=== PATIENT | male | born 1940 | race Hispanic/Latino ===

== ENCOUNTER 2017-10-05 17:15 | Inpatient (IN) | payer MEDICARE ==
[2017-10-05 17:16] VITALS: BMI 20.3
[2017-10-05] MEDS ORDERED: Sodium Chloride 0.9% 1,000 ML IV SCH (17:30)
[2017-10-05] MEDS ORDERED: Albuterol-Ipratrop 3 mg / 0.5 (3 ml) UD IH STA (17:37)
[2017-10-05] MEDS ORDERED: Albuterol 0.083% Inhal Sol (2.5 mg/3 mL) UD INH STA (17:37)
[2017-10-05 18:01] LABS: BASO # 0.02 K/mm3 (0.0-2.0); BASO % 0.2 % (0.0-3.0); EOS # 0.1 (0.0-0.7); EOS % 1.1 % (1.5-5.0); GRAN # 7.41 (1.4-6.5); GRAN % 70.2 % (50.0-68.0); HEMOGLOBIN 12.5 g/dL (14.0-18.0); LYMPH # 2.4 (1.2-3.4); LYMPH % 22.3 % (22.0-35.0); MEAN CELL VOLUME 86.8 fl (80.0-105.0); MEAN CORPUSCULAR HEMOGLOBIN 28.9 pg (25.0-35.0); MEAN CORPUSCULAR HGB CONC 33.2 g/dl (31.0-37.0); MEAN PLATELET VOLUME 10.5 fl (7.0-11.0); MONO # 0.7 (0.1-0.6); MONO % 6.2 % (1.0-6.0); RBC 4.33 10^6/uL (3.5-6.1); RED CELL DISTRIBUTION WIDTH 15.2 % (11.5-14.5); WHITE BLOOD COUNT 10.6 10^3/ul (4.5-11.0)
[2017-10-05 18:13] LABS: INR 1.02 (0.93-1.08); PROTHROMBIN TIME 11.6 SECONDS (9.4-12.5)
[2017-10-05 18:17] LABS: ALB/GLOB RATIO 1.5 (1.1-1.8); ALBUMIN 4.4 g/dL (3.0-4.8); ALT/SGPT 32 U/L (7-56); AST/SGOT 39 U/L (17-59); BLOOD UREA NITROGEN 23 mg/dL (7-21); CALCIUM 9.6 mg/dL (8.4-10.5); GFR AFRICAN-AMERICAN > 60; GFR NON-AFRICAN AMERICAN 54
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
[2017-10-05 18:29] LABS: B-TYPE NATRIURETIC PEPTIDE 637 pg/mL (0-450); TROPONIN I < 0.01 ng/mL
[2017-10-05 18:41] LABS: CK-MB 8.3 ng/mL (0.0-3.6)
[2017-10-05] MEDS ORDERED: Oxycodone/Acetaminophen 5/325 mg Tab PO STA (19:01)
[2017-10-05 21:27] LABS: TROPONIN I < 0.01 ng/mL
[2017-10-05 21:30] LABS: CK-MB 7.5 ng/mL (0.0-3.6)
[2017-10-06] MEDS: Levalbuterol 1.25 MG/3 ML Inhal Soln UD IH SCH ×4 (05:22→21:14)
[2017-10-06] MEDS: oxyCODONE 30 mg Immediate Release Tab PO PRN ×3 (05:28→22:02)
[2017-10-06] MEDS ORDERED: oxyCODONE 30 mg Immediate Release Tab PO SCH (10:00)
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
[2017-10-06] MEDS: Metoprolol Succinate 25 mg XL Tab PO SCH (10:17)
[2017-10-06 13:39] LABS: HDL CHOLESTEROL 53 mg/dL (29-60)
--- NOTE | 2017-10-06 13:44 | CP.PCM.PN ---
Subjective - Subjective Subjective: Lying in bed awake, denies shortness of breath Reason for consultation: Brief history of present illness: A 76 year old male who came in to the ER due to chest pain radiating to scapular area associated with shortness of breath. History of CAD, cardiac stents x 3, and COPD. Seen and examined by me and Dr. Shine Objective - Vital Signs/Intake and Output Vital Signs (last 24 hours): Temp Pulse Resp BP Pulse Ox 98 F 65 18 96/54 L 96 10/06/17 12:00 10/06/17 12:00 10/06/17 12:00 10/06/17 12:00 10/06/17 06:00 Intake and Output: 10/06/17 10/06/17 06:59 18:59 Intake Total 120 Balance 120 - Medications Medications: Current Medications Aspirin (Ecotrin) 81 mg PO DAILY [facility] Last Admin: 10/06/17 10:20 Dose: 81 mg Atorvastatin Calcium (Lipitor) 40 mg PO DAILY [facility] Last Admin: 10/06/17 10:20 Dose: 40 mg Clopidogrel Bisulfate (Plavix) 75 mg PO DAILY [facility] Last Admin: 10/06/17 10:20 Dose: 75 mg Levalbuterol HCl (Xopenex) 1.25 mg IH [id number] [facility] Last Admin: 10/06/17 13:13 Dose: 1.25 mg Lisinopril (Zestril) 20 mg PO DAILY [facility] Last Admin: 10/06/17 10:17 Dose: Not Given Methylprednisolone (Solu-Medrol) 40 mg IV Q12 [facility] Metoprolol Succinate (Toprol Xl) 25 mg PO DAILY [facility] Last Admin: 10/06/17 10:17 Dose: Not Given Oxycodone HCl (Oxycodone Immediate Release Tab) 30 mg PO QID PRN PRN Reason: Pain, moderate (4-7) Last Admin: 10/06/17 05:28 Dose: 30 mg - Labs Labs: PT 11.6 SECONDS (9.4-12.5) 10/05/17 17:42 INR 1.02 (0.93-1.08) 10/05/17 17:42
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
[2017-10-06 13:49] LABS: LDL CHOLESTEROL 47 mg/dL (0-129)
[2017-10-06 13:51] LABS: TROPONIN I < 0.01 ng/mL
[2017-10-06] MEDS: MethylPREDNISolone 40 mg Vial IV SCH ×2 (14:15→22:02)
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
[2017-10-07 00:26] VITALS: O2SAT 93
[2017-10-07] MEDS: Levalbuterol 1.25 MG/3 ML Inhal Soln UD IH SCH ×2 (03:00→07:20)
[2017-10-07] MEDS: oxyCODONE 30 mg Immediate Release Tab PO PRN ×2 (03:01→09:03)
[2017-10-07 06:03] VITALS: TEMP 97.9
[2017-10-07 07:41] LABS: FREE T4 1.31 ng/dL (0.78-2.19)
[2017-10-07] MEDS: MethylPREDNISolone 40 mg Vial IV SCH (09:00)
[2017-10-07] MEDS: Metoprolol Succinate 25 mg XL Tab PO SCH (09:00)
[2017-10-07 09:06] VITALS: BP 138/68; PULSE 74
--- NOTE | 2017-10-07 09:46 | CARD ---
APPROVED REPORT EKG Measurement Heart [id number] <Conclusion> Normal sinus rhythm Septal infarct, age undetermined Abnormal ECG
[2017-10-07 12:13] VITALS: RESP 18
--- NOTE | 2017-10-07 21:11 | CON ---
DATE: 10/07/2017 CARDIOLOGY CONSULTATION HISTORY: The patient is a 76-year-old male who presents with left shoulder pain. No chest pain noted. The patient's past medical history includes a history of multivessel PTCA and stent. He has been lost to followup over the past year, but he has been taking this medication. In addition, the patient suffers from hypertension and hypercholesterolemia. He has documented peripheral vascular disease, followed by an interventional radiologist. In addition, his ambulation has been limited by left femoral hernia. He suffers from hypertension and hypercholesterolemia. He is a former smoker. The 14 point review of systems is reviewed in detail. No angina. No exertional shortness of breath. Positive claudication. Negative edema in the lower extremities. PHYSICAL EXAMINATION: VITAL SIGNS: Blood pressure is 138/68, heart rates in the 70s. HEART: Normal sinus rhythm. NECK: Negative JVD. LUNGS: Without rales. HEART: Reveal S1, S2. EXTREMITIES: Decreased pulses in the left lower extremity. DATA: EKG shows no acute changes. Laboratories, troponins are negative x3. BUN and creatinine unremarkable. Hemoglobin is 12.5. IMPRESSION: 1. Left shoulder pain. 2. No evidence for acute coronary syndrome. 3. Documented multivessel coronary artery disease and history of percutaneous transluminal coronary angioplasty in the past. 4. Peripheral vascular disease. 5. Chronic obstructive pulmonary disease. 6. Hypertension. 7. Hypercholesterolemia. Given these findings, there is no evidence for acute coronary syndrome. The patient can be discharged today. We will discontinue Telemetry. Had arranged for an outpatient stress test. If his stress test is okay, the patient can proceed to hernia repair. Chapin Wall MD
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
== END 2017-10-07 12:07 | disposition home or self-care (01) | DRG 192 ==
LOC: ED 17:15 → ERH 22:27 → 2RSO 10-06 00:21
PROVIDERS: ADMIT Internal Medicine; ATTEND Internal Medicine
PROC: 3E0F7GC Introduction of Other Therapeutic Substance into Respiratory Tract, Via Natural or Artificial Opening (ICD-10-PCS; principal; 2017-10-06)
DX: J44.1 Chronic obstructive pulmonary disease with (acute) exacerbation (principal); I25.10 Atherosclerotic heart disease of native coronary artery without angina pectoris; I73.9 Peripheral vascular disease, unspecified; E78.5 Hyperlipidemia, unspecified; I10 Essential (primary) hypertension; E78.00 Pure hypercholesterolemia, unspecified; K21.9 Gastro-esophageal reflux disease without esophagitis; M25.512 Pain in left shoulder; K41.90 Unilateral femoral hernia, without obstruction or gangrene, not specified as recurrent; Z95.5 Presence of coronary angioplasty implant and graft; Z87.891 Personal history of nicotine dependence; Z79.02 Long term (current) use of antithrombotics/antiplatelets; Z79.82 Long term (current) use of aspirin

== ENCOUNTER 2017-11-07 07:44 | Day surgery (SDC) | payer MEDICARE ==
[2017-11-05 08:07] VITALS: BMI 19.3
[2017-11-07] MEDS ORDERED: Lidocaine 2% Inj (20ml) ONE (08:18)
[2017-11-07] MEDS ORDERED: Iodixanol 320 MG/ML 200 ML BOTTLE IV ONE (08:19)
[2017-11-07] MEDS ORDERED: Iohexol 350mgl/ml 50 ML ONE (08:19)
[2017-11-07] MEDS ORDERED: Iodixanol 320 MG/ML 100 ML BOTTLE IV ONE (08:19)
[2017-11-07] MEDS ORDERED: Phenylephrine 10 mg/ml Inj ONE (08:19)
[2017-11-07 08:21] LABS: BASO # 0.01 K/mm3 (0.0-2.0); BASO % 0.1 % (0.0-3.0); EOS # 0.2 (0.0-0.7); EOS % 2.2 % (1.5-5.0); GRAN # 7.03 (1.4-6.5); GRAN % 64.8 % (50.0-68.0); HEMOGLOBIN 12.4 g/dL (14.0-18.0); LYMPH # 2.7 (1.2-3.4); LYMPH % 24.5 % (22.0-35.0); MEAN CELL VOLUME 88.4 fl (80.0-105.0); MEAN CORPUSCULAR HEMOGLOBIN 29.4 pg (25.0-35.0); MEAN CORPUSCULAR HGB CONC 33.2 g/dl (31.0-37.0); MEAN PLATELET VOLUME 10.4 fl (7.0-11.0); MONO # 0.9 (0.1-0.6); MONO % 8.4 % (1.0-6.0); RBC 4.22 10^6/uL (3.5-6.1); RED CELL DISTRIBUTION WIDTH 15.1 % (11.5-14.5); WHITE BLOOD COUNT 10.9 10^3/ul (4.5-11.0)
[2017-11-07] MEDS ORDERED: Midazolam 2 MG/2 ML VIAL ONE ×2 (08:28→08:40)
[2017-11-07 08:30] LABS: BLOOD UREA NITROGEN 18 mg/dL (7-21); CALCIUM 9.3 mg/dL (8.4-10.5); GFR AFRICAN-AMERICAN > 60; GFR NON-AFRICAN AMERICAN > 60
[2017-11-07 08:34] LABS: INR 1.03 (0.93-1.08); PARTIAL THROMBOPLASTIN TIME 29.1 Seconds (25.1-36.5); PROTHROMBIN TIME 11.9 SECONDS (9.4-12.5)
[2017-11-07] MEDS ORDERED: Sodium Chloride 0.9% 1,000 ML IV SCH (09:15)
[2017-11-07 09:20] VITALS: TEMP 96.9
--- NOTE | 2017-11-07 11:00 | CARDCATH ---
PROCEDURE DATE: 11/07/2017 HISTORY: The patient is a 77-year-old male with a history of multivessel CAD and PTCA in the past. He also suffers from hypertension and hypercholesterolemia. He is finally decided to stop smoking. His stress test was abnormal. Cardiac catheterization was recommended. PROCEDURE: Left heart catheterization with coronary arteriography and left ventriculogram. The right femoral artery was cannulated with a 6-Green[place]ic sheath. There were no complications. I performed moderate sedation, which included the presence of an independent trained observer that assisted in monitoring the patient's level of consciousness and physiologic status. After administration of Versed and fentanyl, my intra service time was 15 minutes. Findings on catheterization revealed a left dominant circulation. The RCA was a small vessel with intimal irregularities without significant stenoses. The left main artery was unremarkable. The LAD and diagonal vessels revealed intimal irregularities without critical lesions. The diagonal stent was patent. The circumflex artery and obtuse marginal branches revealed intimal irregularities without critical lesions. The circumflex stent was patent. LV function is normal. The Mynx system was used to close the femoral artery site. The patient tolerated the procedure well. In summary, the procedure revealed patent stents in the circumflex artery and the diagonal vessel. LV function is normal. Given these findings, the patient's treatment will be continued medical therapy. I will encourage him to stay off cigarettes. Continue his present medications. Chapin Wall MD
[2017-11-07 11:54] VITALS: RESP 16
[2017-11-07 13:58] VITALS: BP 158/75; PULSE 56; O2SAT 97
--- NOTE | 2017-11-07 22:21 | CARD ---
APPROVED REPORT EKG Measurement Heart [id number] <Conclusion> Normal sinus rhythm Normal ECG
== END 2017-11-07 15:10 | disposition home or self-care (01) ==
LOC: CATH 07:44
PROVIDERS: ATTEND Internal Medicine Cardiovascular Disease
DX: I25.10 Atherosclerotic heart disease of native coronary artery without angina pectoris (principal); E78.00 Pure hypercholesterolemia, unspecified; I10 Essential (primary) hypertension; J44.9 Chronic obstructive pulmonary disease, unspecified; I73.9 Peripheral vascular disease, unspecified; Z95.5 Presence of coronary angioplasty implant and graft
CPT/HCPCS: 36415; 80048; 85025; 85610; 85730; 86850; 86900; 93005; 93458; 99152; C1760; C1769; C1887; C2629; J1644; J2250; J3010; J7030; J7040; Q9966; Q9967

== ENCOUNTER 2018-04-30 19:27 | Emergency (ER) | payer MEDICARE ==
[2018-04-30 19:36] VITALS: RESP 18; TEMP 98; BMI 20.6
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
[2018-04-30 20:33] LABS: BASO # 0.02 K/mm3 (0.0-2.0); BASO % 0.2 % (0.0-3.0); EOS # 0.1 (0.0-0.7); EOS % 0.8 % (1.5-5.0); GRAN # 8.5 (1.4-6.5); GRAN % 72.9 % (50.0-68.0); HEMOGLOBIN 13.5 g/dL (14.0-18.0); LYMPH % 17.2 % (22.0-35.0); MEAN CELL VOLUME 88.6 fl (80.0-105.0); MEAN CORPUSCULAR HEMOGLOBIN 29.5 pg (25.0-35.0); MEAN CORPUSCULAR HGB CONC 33.3 g/dl (31.0-37.0); MEAN PLATELET VOLUME 10.9 fl (7.0-11.0); MONO % 8.9 % (1.0-6.0); RBC 4.58 10^6/uL (3.5-6.1); RED CELL DISTRIBUTION WIDTH 14.1 % (11.5-14.5); WHITE BLOOD COUNT 11.7 10^3/uL (4.5-11.0)
[2018-04-30 20:40] LABS: ALB/GLOB RATIO 1.4 (1.1-1.8); ALBUMIN 4.4 g/dL (3.0-4.8); ALT/SGPT 25 U/L (7-56); AST/SGOT 32 U/L (17-59); BLOOD UREA NITROGEN 18 mg/dL (7-21); CALCIUM 9.7 mg/dL (8.4-10.5); GFR NON-AFRICAN AMERICAN 59
[2018-04-30 20:42] LABS: INR 1.03; PROTHROMBIN TIME 11.8 SECONDS (9.4-12.5)
[2018-04-30 20:50] LABS: TROPONIN I 0.02 ng/mL
[2018-04-30] MEDS: Sodium Chloride 0.9% 1,000 ML IV SCH (21:30)
[2018-04-30 21:58] LABS: URINE BILIRUBIN NEGATIVE (NEGATIVE); URINE BLOOD TRACE-INTACT (NEGATIVE); URINE GLUCOSE (UA) NEGATIVE (NEGATIVE); URINE LEUKOCYTE ESTERASE NEGATIVE Leu/uL (NEGATIVE); URINE PROTEIN NEGATIVE mg/dL (<30 mg/dL); URINE UROBILINOGEN 0.2 E.U./dL (<1 E.U./dL)
[2018-04-30 21:59] LABS: URINE APPEARANCE CLEAR (CLEAR); URINE COLOR LIGHT YELLOW (YELLOW)
[2018-04-30 22:10] LABS: URINE RBC 0 - 2 /hpf (0-2); URINE WBC 0 - 2 /hpf (0-6)
[2018-04-30 22:11] LABS: URINE BACTERIA FEW /hpf
[2018-04-30] MEDS: oxyCODONE 10 mg Immediate Release Tab PO STA (23:28)
[2018-04-30 23:31] VITALS: O2SAT 100
[2018-05-01 00:03] VITALS: BP 131/70; PULSE 65
--- NOTE | 2018-05-01 08:47 | CT ---
Date of service: 04/30/2018 PROCEDURE: CT HEAD WITHOUT CONTRAST. HISTORY: fall COMPARISON: None available. TECHNIQUE: Axial computed tomography images were obtained through the head/brain without intravenous contrast. Radiation dose: Total exam DLP = 828.82 mGy-cm. This CT exam was performed using one or more of the following dose reduction techniques: Automated exposure control, adjustment of the mA and/or kV according to patient size, and/or use of iterative reconstruction technique. FINDINGS: HEMORRHAGE: No intracranial hemorrhage. BRAIN: No mass effect or edema. No atrophy or chronic microvascular ischemic changes. VENTRICLES: Unremarkable. No hydrocephalus. CALVARIUM: Unremarkable. PARANASAL SINUSES: Unremarkable as visualized. No significant inflammatory changes. MASTOID AIR CELLS: Unremarkable as visualized. No inflammatory changes. OTHER FINDINGS: None. IMPRESSION: Normal CT of the Head.
--- NOTE | 2018-05-01 09:09 | CT ---
Date of service: 04/30/2018 PROCEDURE: CT Chest, Abdomen and Pelvis with intravenous contrast HISTORY: fall left chest pain luq pain COMPARISON: None available. TECHNIQUE: IV dose administered: Radiation dose: Total exam DLP = 426.21 mGy-cm. This CT exam was performed using one or more of the following dose reduction techniques: Automated exposure control, adjustment of the mA and/or kV according to patient size, and/or use of iterative reconstruction technique. FINDINGS: CT CHEST WITH CONTRAST: LUNGS: Bilateral interstitial fibrotic changes. Emphysematous changes. MEDIASTINUM: No adenopathy. LYMPH NODES: Unremarkable. PLEURA: Unremarkable. No pneumothorax. No pleural fluid. BONES: Unremarkable. OTHER FINDINGS: None. CT ABDOMEN AND PELVIS: LIVER: Unremarkable. No gross lesion or ductal dilatation. GALLBLADDER AND BILE DUCTS: Unremarkable. PANCREAS: Unremarkable. No gross lesion or ductal dilatation. SPLEEN: Unremarkable. ADRENALS: Unremarkable. No mass. KIDNEYS AND URETERS: Unremarkable. No hydronephrosis. No solid mass. VASCULATURE: 3.1 centimeter infrarenal abdominal aortic aneurysm. Aortic calcifications. BOWEL: Unremarkable. No obstruction. No gross mural thickening. APPENDIX: Normal appendix. PERITONEUM: Unremarkable. No free fluid. No free air. LYMPH NODES: Unremarkable. No enlarged lymph nodes. BLADDER: Unremarkable. REPRODUCTIVE: Unremarkable. BONES: No acute fracture. OTHER FINDINGS: None. IMPRESSION: 3.1 centimeter infrarenal abdominal aortic aneurysm. Interstitial fibrosis and emphysematous change.
--- NOTE | 2018-05-01 09:12 | CARD ---
APPROVED REPORT Date of service: 04/30/2018 EKG Measurement Heart [id number] 150P77 [id number] <Conclusion> Normal sinus rhythm Normal ECG No change
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
== END 2018-05-01 00:02 | disposition home or self-care (01) ==
LOC: ED 19:27
DX: S09.90XA Unspecified injury of head, initial encounter (principal); S29.9XXA Unspecified injury of thorax, initial encounter; W01.0XXA Fall on same level from slipping, tripping and stumbling without subsequent striking against object, initial encounter
CPT/HCPCS: 70450; 71045; 71260; 74177; 80053; 81001; 82550; 83615; 83735; 84484; 85025; 85610; 85730; 93005; 99284; J7030; Q9967

== ENCOUNTER 2018-06-04 06:37 | Inpatient (IN) | payer MEDICARE, OTHER ==
[2018-06-04] MEDS ORDERED: Albuterol-Ipratrop 3 mg / 0.5 (3 ml) UD ONE (06:52)
[2018-06-04] MEDS ORDERED: Levalbuterol 1.25 MG/3 ML Inhal Soln UD ONE (06:57)
[2018-06-04] MEDS ORDERED: Metoprolol 1 mg/ml Inj IVP STA (07:04)
[2018-06-04] MEDS ORDERED: Metoprolol 1 mg/ml Inj ONE (07:04)
[2018-06-04 07:18] LABS: VENOUS BLOOD GAS BASE EXCESS 1.8 mmol/L (0.0-2.0); VENOUS BLOOD GAS PO2 21 mm/Hg (30-55); VENOUS BLOOD PH 7.34 (7.32-7.43)
[2018-06-04 07:21] LABS: BASO # 0.01 K/mm3 (0.0-2.0); GRAN # 18.81 (1.4-6.5); GRAN % 89.9 % (50.0-68.0); HEMOGLOBIN 15.6 g/dL (14.0-18.0); LYMPH # 0.6 (1.2-3.4); MEAN CELL VOLUME 87.8 fl (80.0-105.0); MEAN CORPUSCULAR HEMOGLOBIN 30.3 pg (25.0-35.0); MEAN CORPUSCULAR HGB CONC 34.5 g/dl (31.0-37.0); MEAN PLATELET VOLUME 11.2 fl (7.0-11.0); MONO # 1.5 (0.1-0.6); MONO % 7.1 % (1.0-6.0); PLATELET COUNT 204 10^3/uL (120.0-450.0); RBC 5.15 10^6/uL (3.5-6.1); RED CELL DISTRIBUTION WIDTH 14.2 % (11.5-14.5); WHITE BLOOD COUNT 20.9 10^3/uL (4.5-11.0)
[2018-06-04 07:32] LABS: ALB/GLOB RATIO 1.2 (1.1-1.8); ALBUMIN 4.3 g/dL (3.0-4.8); ALT/SGPT 22 U/L (7-56); AST/SGOT 29 U/L (17-59); BLOOD UREA NITROGEN 37 mg/dL (7-21); CALCIUM 10.1 mg/dL (8.4-10.5); GFR NON-AFRICAN AMERICAN > 60
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
[2018-06-04 07:42] LABS: INR 1.27; PARTIAL THROMBOPLASTIN TIME 33.1 Seconds (26.9-38.3); PROTHROMBIN TIME 14.4 SECONDS (9.4-12.5)
[2018-06-04 07:43] LABS: B-TYPE NATRIURETIC PEPTIDE 1890 pg/mL (0-450); TROPONIN I 0.04 ng/mL
[2018-06-04] MEDS ORDERED: Sodium Chloride 0.9% 1,000 ML IV STA ×2 (07:43)
[2018-06-04] MEDS ORDERED: Vancomycin 1gm in NS 250ml 1 GM/250 ML BAG IVPB STA (07:44)
[2018-06-04] MEDS ORDERED: Piperacill/Tazo 4.5gm in NS 4.5 GM/100 ML BAG IVPB STA (07:44)
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
[2018-06-04] MEDS: diltiaZEM IVPB 100mg in NS 100 ML IV PRN ×2 (08:33→16:21)
[2018-06-04 08:38] LABS: BAND 3 % (0-2); LYMPHOCYTE 5 % (22.0-35.0); MONOCYTE 6 % (1.0-6.0); NEUTROPHIL 86 % (50.0-70.0)
--- NOTE | 2018-06-04 09:03 | PCM.SEPTIC ---
Sepsis Progress Note - Reassessment Type Reassessment Type: Non-invasive reassessment - Non Invasive Reassessment Were the most recent vital sign reviewed: Yes Vital Sign (Latest): Temp Pulse Resp BP Pulse Ox 152 H 25 H 118/88 99 06/04/18 08:43 06/04/18 07:30 06/04/18 08:43 06/04/18 08:24 Cardiovascular: Yes: Irregularly Irregular Respiratory: Yes: Crackles Capillary Refill: Delayed Pulses: Decreased Radial, Decreased Dorsalis Pedis, Decreased Posterior Tibialis Skin: Warm
[2018-06-04 09:11] LABS: ARTERIAL BLOOD GAS HCO3 19.4 mmol/L (21-28); ARTERIAL BLOOD GAS O2 SAT 93.7 % (95-98); ARTERIAL BLOOD GAS PCO2 32 mm/Hg (35-45); ARTERIAL BLOOD GAS PH 7.39 (7.35-7.45); ARTERIAL BLOOD GAS TCO2 20.4 mmol.L (22-28)
[2018-06-04 09:48] LABS: URINE BILIRUBIN NEGATIVE (NEGATIVE); URINE BLOOD SMALL (NEGATIVE); URINE GLUCOSE (UA) NEGATIVE (NEGATIVE); URINE LEUKOCYTE ESTERASE NEGATIVE Leu/uL (NEGATIVE); URINE PROTEIN TRACE mg/dL (<30 mg/dL); URINE UROBILINOGEN 0.2 E.U./dL (<1 E.U./dL)
[2018-06-04] MEDS: MethylPREDNISolone 40 mg Vial IVP SCH ×2 (10:01→18:14)
[2018-06-04] MEDS: Albuterol-Ipratrop 3 mg / 0.5 (3 ml) UD IH SCH ×2 (10:03→13:13)
[2018-06-04 10:10] LABS: VENOUS BLOOD GAS BASE EXCESS -2.4 mmol/L (0.0-2.0); VENOUS BLOOD GAS PO2 82 mm/Hg (30-55); VENOUS BLOOD PH 7.41 (7.32-7.43)
[2018-06-04 10:23] LABS: ALB/GLOB RATIO 1.1 (1.1-1.8); ALBUMIN 3.2 g/dL (3.0-4.8); ALT/SGPT 30 U/L (7-56); AST/SGOT 19 U/L (17-59); BLOOD UREA NITROGEN 31 mg/dL (7-21); CALCIUM 8.3 mg/dL (8.4-10.5); GFR NON-AFRICAN AMERICAN > 60
[2018-06-04 10:23] LABS: URINE APPEARANCE CLEAR (CLEAR); URINE COLOR YELLOW (YELLOW)
[2018-06-04 10:30] LABS: URINE AMORPHOUS SEDIMENT FEW /hpf; URINE BACTERIA MOD /hpf; URINE COARSE GRANULAR CAST TRACE /hpf; URINE WBC 0 - 2 /hpf (0-6)
[2018-06-04] MEDS ORDERED: Potassium Chloride 20 mEq ER Tab PO ONE (11:38)
[2018-06-04] MEDS: Vancomycin 1gm in NS 250ml 1 GM/250 ML BAG IVPB SCH ×2 (11:46→21:52)
--- NOTE | 2018-06-04 11:57 | CARD ---
APPROVED REPORT Date of service: 06/04/2018 EKG Measurement Heart [id number] <Conclusion> Atrial fibrillation with rapid ventricular response Possible Anterior infarct, age undetermined Abnormal ECG
--- NOTE | 2018-06-04 11:58 | CARD ---
APPROVED REPORT Date of service: 06/04/2018 EKG Measurement Heart [id number] <Conclusion> Atrial fibrillation with rapid ventricular response Cannot rule out Anterior infarct, age undetermined ST & T wave abnormality, consider inferior ischemia or digitalis effect Abnormal ECG
--- NOTE | 2018-06-04 12:09 | CT ---
Date of service: 06/04/2018 PROCEDURE: CT Abdomen and Pelvis without intravenous contrast HISTORY: colitis COMPARISON: CT abdomen and pelvis 04/30/2018 TECHNIQUE: Without contrast. Contrast dose: No Radiation dose: Total exam DLP = 175 mGy-cm. This CT exam was performed using one or more of the following dose reduction techniques: Automated exposure control, adjustment of the mA and/or kV according to patient size, and/or use of iterative reconstruction technique. FINDINGS: LOWER THORAX: There is left basal dependent consolidation seen. Infiltrate and/or atelectasis is compatible with this. Some concomitant the left pleural effusion is possible. However the density readings are greater than that typically seen with a simple effusion. Probable hiatal hernia. Minimal pericardial effusion noted. This is an interval change in appearance noted. LIVER: Unremarkable. No gross lesion or ductal dilatation. GALLBLADDER AND BILE DUCTS: Unremarkable. PANCREAS: Unremarkable. No gross lesion or ductal dilatation. SPLEEN: Unremarkable. ADRENALS: Unremarkable. No mass. KIDNEYS AND URETERS: Unremarkable. No hydronephrosis. No gross mass appreciated. VASCULATURE: There is descending infrarenal abdominal aortic aneurysm fairly similar in appearance and size this exam it measures 3.4 cm prior measurements were different-overall size however is believed similar.. There is presence of aortic atherosclerotic calcification and mural plaque on cross sectional studies. Atherosclerotic vascular calcifications extend into each common iliac artery as well as the more distal branches. As well. BOWEL: Moderate left and right colonic stool retention.. No obstruction. No gross mural thickening. No gross pericolonic inflammatory changes appreciated on this non IV contrast enhanced study. APPENDIX: A portion of the appendix is probably visualized near the cecal base-no CT evidence of acute appendicitis suggested. PERITONEUM: Unremarkable. No free fluid. No free air. LYMPH NODES: Unremarkable. No enlarged lymph nodes. BLADDER: Moderate distended bladder. No gross bladder wall thickening or intraluminal masses appreciated. The bladder wall thickness is probably top-normal. REPRODUCTIVE: Prostate minimally prominent at the 4.7 x 3.2 cm. Some posterior prostatic calcifications also suggested. Seminal vesicles unremarkable. BONES: No acute fracture. Spondylosis noted. 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 Bilateral sacroiliac anterior hypertrophic changes noted. OTHER FINDINGS: None. IMPRESSION: No bowel obstruction. The exam is limited in terms of evaluating for colitis without IV contrast. No gross prominent diverticulosis with the concomitant gross diverticulitis appreciated. Moderate stool retention. Redundant rectosigmoid colon noted Left lower lobe posterior/dependent consolidation as referenced above. This is an interval change with the prior exam. Concomitant more hyperdense left pleural effusion not excluded. Interval minimal left pericardial effusion. Follow-up recommended. Atherosclerotic vascular calcifications present. 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 This is believed similar in caliber although previously referenced different measurements were provided.
[2018-06-04] MEDS ORDERED: Digoxin 500 mcg/2ml (0.5 mg/2ml) Inj IVP ONE ×2 (12:13→12:22)
[2018-06-04 12:32] VITALS: PULSE 133
[2018-06-04 12:41] LABS: VENOUS BLOOD GAS BASE EXCESS -1.3 mmol/L (0.0-2.0); VENOUS BLOOD GAS PO2 30 mm/Hg (30-55); VENOUS BLOOD PH 7.34 (7.32-7.43)
[2018-06-04 12:42] LABS: GRAN # 17.6 (1.4-6.5); GRAN % 97.1 % (50.0-68.0); HEMOGLOBIN 13.8 g/dL (14.0-18.0); LYMPH # 0.3 (1.2-3.4); LYMPH % 1.5 % (22.0-35.0); MEAN CELL VOLUME 87.9 fl (80.0-105.0); MEAN CORPUSCULAR HEMOGLOBIN 29.2 pg (25.0-35.0); MEAN CORPUSCULAR HGB CONC 33.3 g/dl (31.0-37.0); MEAN PLATELET VOLUME 11.5 fl (7.0-11.0); MONO # 0.3 (0.1-0.6); MONO % 1.4 % (1.0-6.0); RBC 4.72 10^6/uL (3.5-6.1); RED CELL DISTRIBUTION WIDTH 14.3 % (11.5-14.5); WHITE BLOOD COUNT 18.1 10^3/uL (4.5-11.0)
[2018-06-04] MEDS ORDERED: Enoxaparin 60 mg Syringe SC SCH (12:45)
--- NOTE | 2018-06-04 13:00 | PCM.SEPTIC ---
Sepsis Progress Note - Reassessment Type Date of Evaluation: 06/04/18 Time of Evaluation: 12:59 Reassessment Type: Non-invasive reassessment - Non Invasive Reassessment Were the most recent vital sign reviewed: Yes Vital Sign (Latest): Temp Pulse Resp BP Pulse Ox 138 H 25 H 107/57 L 99 06/04/18 11:36 06/04/18 07:30 06/04/18 11:36 06/04/18 11:36 Cardiovascular: Yes: Tachycardia Respiratory: No: Decreased Breath Sounds, Accessory Muscle Use, Rales, Rhonchi, Stridor, Wheezing Capillary Refill: Normal (Less than 2 sec) Pulses: Decreased Radial, Decreased Dorsalis Pedis, Decreased Posterior Tibialis Skin: Normal Color, Warm, Dry
[2018-06-04 13:03] LABS: TROPONIN I 0.03 ng/mL
[2018-06-04 13:08] LABS: ALB/GLOB RATIO 1.1 (1.1-1.8); ALBUMIN 3.7 g/dL (3.0-4.8); ALT/SGPT 28 U/L (7-56); AST/SGOT 25 U/L (17-59); BLOOD UREA NITROGEN 32 mg/dL (7-21); CALCIUM 8.9 mg/dL (8.4-10.5); GFR NON-AFRICAN AMERICAN > 60
[2018-06-04] MEDS: oxyCODONE 20 mg ER Tab (oxyCONTIN) PO PRN (13:10)
[2018-06-04] MEDS: Cefepime IV 2 gm in NS 2 GM/100 ML BAG IVPB SCH ×2 (13:30→21:15)
[2018-06-04] MEDS ORDERED: Cefepime 1gm in NS 100ml 1 GM/100 ML BAG IVPB SCH (14:00)
[2018-06-04 16:20] LABS: VENOUS BLOOD GAS BASE EXCESS -1.1 mmol/L (0.0-2.0); VENOUS BLOOD GAS PO2 61 mm/Hg (30-55); VENOUS BLOOD PH 7.43 (7.32-7.43)
--- NOTE | 2018-06-04 17:15 | CARD ---
APPROVED REPORT Date of service: 06/04/2018 EXAM: Two-dimensional and M-mode echocardiogram with Doppler and color Doppler. INDICATION Atrial Fibrillation 2D DIMENSIONS Left Atrium (2D)3.1 (1.6-4.0cm)IVSd1.1 (0.7-1.1cm) LVDd3.5 (3.9-5.9cm)PWd1.1 (0.7-1.1cm) LVDs2.9 (2.5-4.0cm)FS (%) 16.2 % LVEF (%)55.0 (>50%) M-Mode DIMENSIONS Aortic Root3.10 (2.2-3.7cm)Aortic Cusp Exc.1.40 (1.5-2.0cm) Aortic Valve AoV Peak Gjampmqn134.0cm/Nayan Peak GR.10mmHg Mitral Valve MV E Zpkfsnrh53.4cm/sMV A Vpnclltk78.6cm/sE/A ratio0.7 TDI E/Lateral E'0.0E/Medial E'0.0 Tricuspid Valve TR Peak Rrdxxwqw120ed/sRAP [id number] Peak Gr.22mmHg [id number] LEFT VENTRICLE The left ventricle is normal size. There is normal left ventricular wall thickness. The left ventricular function is normal. The left ventricular ejection fraction is within the normal range. There is normal LV segmental wall motion. Transmitral Doppler flow pattern is Grade I-abnormal relaxation pattern. RIGHT VENTRICLE The right ventricle is normal size. There is normal right ventricular wall thickness. The right ventricular systolic function is normal. ATRIA The left atrium size is normal. The right atrium size is normal. AORTIC VALVE The aortic valve is mildly to moderately sclerotic. There is mild aortic regurgitation. There is no aortic valvular stenosis. MITRAL VALVE The mitral valve is moderately thickened. Mitral regurgitation is trace. There is no mitral valve stenosis. TRICUSPID VALVE There is mild tricuspid regurgitation. GREAT VESSELS The aortic root is normal in size. The IVC is normal in size and collapses >50% with inspiration. <Conclusion> There is normal left ventricular wall thickness. The left ventricular function is normal. The left ventricular ejection fraction is within the normal range. There is normal LV segmental wall motion. Transmitral Doppler flow pattern is Grade I-abnormal relaxation pattern. There is mild aortic regurgitation. There is mild tricuspid regurgitation.
--- NOTE | 2018-06-04 19:05 | CON ---
DATE: 06/04/2018 HISTORY OF PRESENT ILLNESS: This is a 77-year-old male with history of atrial fibrillation, COPD, who presented to ER complaining of increased shortness of breath, cough with greenish sputum production over the last 3 days which was getting progressively worse, and wheezing. No alleviating or aggravating factors. No chest pain. The patient had some subjective fever but no chills, sweats. The patient does report some diarrhea and some mild abdominal pain. The patient was treated with oral antibiotics prior to admission to ER, however, unsuccessfully. PAST MEDICAL HISTORY: Atrial fibrillation, COPD, coronary artery disease (three stents). The patient does have history of CHF. ALLERGIES: NKDA. SOCIAL HISTORY: The patient is ex-smoker. No alcohol or illicit drug abuse. MEDICATIONS: Aspirin, Plavix, oxycodone ER and metoprolol. REVIEW OF SYSTEMS: Review of 12-organ system other than mentioned in history of present illness is negative. FAMILY HISTORY: Noncontributory. PHYSICAL EXAMINATION: VITAL SIGNS: Heart rate fluctuates (the patient has atrial fibrillation between 140 and 160. Cardizem drip was increased from 5 mg per hour to 10 mg per hour). Blood pressure 120/60, respiratory rate 18. The patient is on BiPAP 12/6 with FiO2 50%. The patient pulling 700 mL of tidal volume. ABG on that setting is 7.39, pCO2 of 32, pO2 of 60, lactic acid 0.9. ENT: Head and neck atraumatic. LUNGS: Few wheezes and rhonchi bilaterally. HEART: Irregular rate and rhythm. S1, S2 distant. ABDOMEN: Soft, mildly tender, but no voluntary or involuntary guarding. No rebound tenderness. MUSCULOSKELETAL: No C/C/E. NEUROLOGIC: The patient moves all extremities spontaneously. SKIN: Moist. PSYCHIATRIC: The patient is alert, awake and oriented. Does not appear to be in respiratory or otherwise distress. LABORATORY DATA: Sodium 138, potassium 4, chloride 96, carbon dioxide 28, BUN 37, creatinine 1.1, glucose 138, calcium 10.1, AST 29, ALT 22, total bilirubin 1.3. ProBNP 1890. Troponin 0.04. WBC 20.9, hemoglobin 15.6, platelet count 204, eosinophils 0. Influenza type A and B negative. Chest x-ray showed interval patchy coalescent left basilar infiltrate, background chronic COPD and background chronic interstitial lung disease. ASSESSMENT AND PLAN: This is a 77-year-old gentleman who presented with severe community-acquired pneumonia complicated by hypoxemic respiratory failure requiring noninvasive positive pressure ventilation, sepsis, atrial fibrillation in the setting of likely some systolic congestive heart failure (echocardiogram performed 6 years ago showed mild left ventricular systolic dysfunction, elevated proBNP). I will start the patient on cefepime, vanco and doxycycline pending ID service consultation and adjusting antibiotic regimen. We will proceed with blood culture, urine culture, procalcitonin level. Urine for Legionella and streptococcal antigen. At present time, the patient is fluid resuscitated, his lactic acidosis resolved, and I will proceed with conservative fluid management and will give the patient one dose of Lasix with further reassessment. We will put Todd catheter in and monitor urine output. Because the patient had some diarrhea and abdominal pain, I will get CAT scan of the abdomen and pelvis. The patient will be admitted to ICU for further management and monitoring. Hopefully, with treating sepsis and maintaining euvolemia, atrial fibrillation with RVR will be controlled. Meanwhile, the patient is on Cardizem drip. Echocardiogram was ordered, Cardiology consult is pending. We will follow up on this. We will continue with deep venous thrombosis, gastrointestinal prophylaxis. We will maintain euvolemia, euglycemia, normothermia and oxygen saturation more than 90%. We will try to avoid hyperchloremia and maintain mean arterial pressure more than 65. ccm time 40 min iMah Cowan MD [facility]
[2018-06-04] MEDS ORDERED: Influenza Vaccine 60 mcg/0.5 mL SYR (4YR UP) IM ONE (19:07)
[2018-06-04] MEDS ORDERED: Pneumococcal 23-Valent Vaccine IM ONE (19:07)
[2018-06-04 19:08] VITALS: BMI 18.6
[2018-06-04] MEDS ORDERED: oxyCODONE 20 mg ER Tab (oxyCONTIN) PO ONE (20:15)
--- NOTE | 2018-06-04 20:47 | CON ---
DATE: 06/04/2018 CARDIOLOGY CONSULTATION HISTORY: The patient is a 77-year-old male who presents with upper respiratory congestion. He complained of cough for several days. He denies angina. PAST MEDICAL HISTORY: Notable for marked COPD secondary to years of smoking. In addition, the patient has documented coronary artery disease with his last catheterization occurring in 10/2007 which revealed patent stents in the LAD, diagonal regions as well as in the circumflex artery. The RCA was chronically occluded. The LV function is normal. The patient denies shortness of breath. Denies angina. REVIEW OF SYSTEMS: Fourteen-point review of systems is reviewed in detail. Myalgias were recent. No edema in the lower extremities. No angina. No shortness of breath. PHYSICAL EXAMINATION: VITAL SIGNS: Blood pressure is 107/57, heart rate is atrial fibrillation in the 140s. NECK: Negative JVD. LUNGS: Without rales, with decreased breath sounds. HEART: Reveals S1, S2. EXTREMITIES: Without edema. EKG shows rapid atrial fibrillation with nonspecific ST-T changes. LABORATORY DATA: White count is 18,000, hemoglobin is 13.8. Chemistries reveal BUN and creatinine unremarkable with a glucose of 127. IMPRESSION: 1. New-onset atrial fibrillation. 2. Upper respiratory infection with no evidence for the flu. 3. Stable angina. 4. History of percutaneous transluminal coronary angioplasty and stent in the past. 5. Severe chronic obstructive pulmonary disease. 6. Hypercholesterolemia. Given these findings, we will start the patient on therapeutic Lovenox with 1 mg/kg. We will add Coreg to the regimen. We will DC the subcu heparin. An echocardiogram has been ordered. Chapin Wall MD
[2018-06-04] MEDS: Enoxaparin 60 mg Syringe SC SCH (21:14)
[2018-06-04] MEDS ORDERED: Magnesium Sulfate 1 gm in D5W 1 GM/100 ML BAG IVPB ONE (21:38)
[2018-06-04] MEDS ORDERED: oxyCODONE 10 mg Immediate Release Tab PO STA (21:58)
[2018-06-04] MEDS ORDERED: oxyCODONE 5 mg Immediate Release Tab PO STA (22:32)
--- NOTE | 2018-06-04 22:48 | CARD ---
APPROVED REPORT Date of service: 06/04/2018 EKG Measurement Heart [id number] <Conclusion> Normal sinus rhythm Q waves V1-2. Cannot exclude old ASMI CCR Abnormal ECG
--- NOTE | 2018-06-04 23:03 | CARD ---
APPROVED REPORT Date of service: 06/04/2018 EKG Measurement Heart [id number] <Conclusion> Atrial fibrillation with rapid ventricular response. Diffuse NDSTT abnormalities. Poor R wave progression V1-3. Cannot exclude remote ASMI CCR Abnormal ECG
[2018-06-05] MEDS: oxyCODONE 20 mg ER Tab (oxyCONTIN) PO PRN (01:23)
[2018-06-05] MEDS: MethylPREDNISolone 40 mg Vial IVP SCH ×3 (01:24→18:42)
--- NOTE | 2018-06-05 05:07 | CP.PCM.PN ---
<SarahFelicia - Last Filed: 06/05/18 17:11> Subjective - Date & Time of Evaluation Date of Evaluation: 06/05/18 Time of Evaluation: 06:45 - Subjective Subjective: Pgy3 Medicine Progress note for Dr. Archibald Patient seen and examined at bedside. Overnight patient had no acute events as per nursing. This morning patient complained of a headache and chronic LBP. Patient is eager to have an x-ray done of his lumbosacral spine as he had a script to have it done but was unable to do so. Patient requested he be restarted on his home pain medications. Patient did complain of a slight headache this morning. He also had some episodes of palpitations but denied any chest pain or SOB. He denied any repeated episodes of diarrhea and ate well last night. Patient also reported cough improved. Patient denied any fever, chills, dizziness, cough, nausea, vomiting, abdominal pain, bladder complaints, swelling in his legs bilaterally. Patient has chronic pain in his b/l LE and hips. He has a kohler in place and made good UO overnight. Objective - Vital Signs/Intake and Output Vital Signs (last 24 hours): Temp Pulse Resp BP Pulse Ox 60 18 101/50 L 97 06/04/18 23:57 06/04/18 18:28 06/04/18 18:14 06/04/18 18:00 Intake and Output: 06/04/18 06/05/18 18:59 06:59 Intake Total 95.0 2750 Output Total 700 Balance 95.0 2050 - Medications Medications: Current Medications Aspirin (Ecotrin) 81 mg PO DAILY [facility] Atorvastatin Calcium (Lipitor) 40 mg PO HS [facility] Last Admin: 06/04/18 21:16 Dose: 40 mg Enoxaparin Sodium (Lovenox) 50 mg 1 mg/kg (50 mg) SC Q12 [facility]; Protocol Last Admin: 06/04/18 21:14 Dose: 50 mg diltiaZEM IVPB 100mg in NS (Cardizem 100mg In Ns) 100 mls @ 5 mls/hr IV .Q20H PRN; Protocol PRN Reason: TITRATE PER MD ORDER Last Admin: 06/04/18 16:21 Dose: 5 mg/hr, 5 mls/hr Doxycycline Hyclate 100 mg/ (Sodium Chloride) 100 mls @ 100 mls/hr IVPB Q12 [facility]; Protocol Last Admin: 06/04/18 21:15 Dose: 100 mls/hr Cefepime HCl (Maxipime 2gm) 2 gm in 100 mls @ 100 mls/hr IVPB Q8 [facility]; Protocol Stop: 06/09/18 14:01 Last Admin: 06/04/18 21:15 Dose: 100 mls/hr Vancomycin HCl (Vancomycin 1gm) 1 gm in 250 mls @ 167 mls/hr IVPB Q12H [facility]; Protocol Last Admin: 06/04/18 21:52 Dose: 167 mls/hr Methylprednisolone (Solu-Medrol) 40 mg IVP Q8H [facility] Last Admin: 06/05/18 01:24 Dose: 40 mg Oseltamivir Phosphate (Tamiflu Cap) 30 mg PO BID [facility]; Protocol Stop: 06/09/18 09:00 Last Admin: 06/04/18 18:15 Dose: 30 mg Oxycodone HCl (Oxycontin Extended Release Tab) 20 mg PO Q12 PRN PRN Reason: Pain, severe (8-10) Last Admin: 06/05/18 01:23 Dose: 20 mg Pantoprazole Sodium (Protonix Inj) 40 mg IVP DAILY [facility] Last Admin: 06/04/18 10:01 Dose: 40 mg Sotalol HCl (Betapace) 80 mg PO BID [facility] Last Admin: 06/04/18 18:14 Dose: Not Given - Labs Labs: 06/04/18 12:30 06/04/18 12:30 PT 14.4 SECONDS (9.4-12.5) H 06/04/18 07:00 INR 1.27 06/04/18 07:00 APTT 33.1 Seconds (26.9-38.3) 06/04/18 07:00 - Additional Findings Additional findings: - Constitutional Appears: Non-toxic, No Acute Distress - Head Exam Head Exam: ATRAUMATIC, NORMAL INSPECTION, NORMOCEPHALIC - Eye Exam Eye Exam: EOMI, Normal appearance, PERRL. absent: Conjunctival injection, Scleral icterus - ENT Exam ENT Exam: Mucous Membranes Moist Additional comments: - Neck Exam Neck exam: Positive for: Lymphadenopathy, Normal Inspection. Negative for: Tenderness - Respiratory Exam Respiratory Exam: Rhonchi (L sided faint), Wheezes (faint), NORMAL BREATHING PATTERN. absent: Accessory Muscle Use, Rales, Respiratory Distress - Cardiovascular Exam Cardiovascular Exam: Irregular Rhythm, +S1, +S2. absent: Systolic Murmur - GI/Abdominal Exam GI & Abdominal Exam: Normal Bowel Sounds, Soft. absent: Firm, Guarding, Rigid, Tenderness - Extremities Exam Extremities exam: Positive for: normal inspection. Negative for: pedal edema - Neurological Exam Neurological exam: Alert, CN II-XII Intact, Oriented x3 - Psychiatric Exam Psychiatric exam: Normal Affect, Normal Mood - Skin Skin Exam: Dry, Intact, Normal Color, Warm Assessment and Plan - Assessment and Plan (Free Text) Assessment: 1. Severe Sepsis likely secondary to CAP 2. New onset Afib 3. Hypoxemic respiratory failure on BiPAP- improved 4. Elevated proBNP 5. COPD exacerbation 6. Diarrhea- resolved 7. HTN 8. HLD 9. PAD 10. Chronic R humerus fracture 11. Chronic back pain 12. Chronic opioid use for chronic pain Plan: Patient's vitals, blood work, and imaging reviewed in chart. Patient's leukocytosis trending down and patient remained afebrile overnight. CXR reviewed. Patient was negative for rapid flu; will f/u influenza A and B Ab. Urine legionella negative. Procalcitonin elevated at 8.57. Patient on Vanc, Cefepime, Doxy, and Tamiflu. ID on board. Overnight patient's cardizem gtt placed on hold and HR remained wnl. Continued on sotalol at this time and therapeutic Lovenox for new onset Afib. Troponin negative x 2. Suspect new onset Afib likely secondary to sepsis in light of patient's history of CAD w/ 3 emily nts. Thyroid studies wnl. Continue home lipitor and ASA and Plavix in light of patient's history of CAD with 3 stents. Lipid panel and HgbA1c wnl. Will continue IV solumedrol and breathing treatments at this time. In light of elevated proBNP, Echo reviewed. Patient's abdominal pain and diarrhea resolved and patient has good appetite. CT Abd/pelvis reviewed. Patient's HTN meds on hold at this time due to borderline BP. Maintain MAP > 65. IR consulted for patient's PAD. Arterial studies ordered- will f/u. Restarted patient's home medications for chronic pain. Will order x-ray lumbosacral spine in AM. Maintain euglycemia and normothermia. DVT/GI ppx in place. [facility] with [facility] ordered. Discussed with Dr. Cristela Smith PGY3 <Primitivo Archibald S - Last Filed: 06/05/18 20:44> Objective - Vital Signs/Intake and Output Vital Signs (last 24 hours): Temp Pulse Resp BP Pulse Ox 98 F 61 15 123/61 93 L 06/05/18 08:00 06/05/18 19:00 06/05/18 19:00 06/05/18 19:00 06/05/18 19:00 Intake and Output: 06/05/18 06/06/18 18:59 06:59 Intake Total 400 Output Total 750 Balance -350 - Medications Medications: Current Medications Acetaminophen (Tylenol 325mg Tab) 650 mg PO Q6H PRN PRN Reason: Headache Last Admin: 06/05/18 16:17 Dose: 650 mg Acetaminophen (Tylenol 325mg Tab) 650 mg PO Q6H PRN PRN Reason: Fever >100.4 F Aspirin (Ecotrin) 81 mg PO DAILY [facility] Last Admin: 06/05/18 10:20 Dose: 81 mg Atorvastatin Calcium (Lipitor) 40 mg PO HS [facility] Last Admin: 06/04/18 21:16 Dose: 40 mg Enoxaparin Sodium (Lovenox) 50 mg 1 mg/kg (50 mg) SC Q12 [facility]; Protocol Last Admin: 06/05/18 10:19 Dose: 50 mg diltiaZEM IVPB 100mg in NS (Cardizem 100mg In Ns) 100 mls @ 5 mls/hr IV .Q20H PRN; Protocol PRN Reason: TITRATE PER MD ORDER Last Admin: 06/04/18 16:21 Dose: 5 mg/hr, 5 mls/hr Doxycycline Hyclate 100 mg/ (Sodium Chloride) 100 mls @ 100 mls/hr IVPB Q12 [facility]; Protocol Last Admin: 06/05/18 10:16 Dose: 100 mls/hr Cefepime HCl (Maxipime 2gm) 2 gm in 100 mls @ 100 mls/hr IVPB Q8 [facility]; Protocol Stop: 06/09/18 14:01 Last Admin: 06/05/18 15:32 Dose: 100 mls/hr Vancomycin HCl (Vancomycin 1gm) 1 gm in 250 mls @ 167 mls/hr IVPB Q12H [facility]; Protocol Last Admin: 06/05/18 10:18 Dose: 167 mls/hr Methylprednisolone (Solu-Medrol) 40 mg IVP Q8H [facility] Last Admin: 06/05/18 18:42 Dose: 40 mg Oxycodone HCl (Oxycodone Immediate Release Tab) 30 mg PO Q6H PRN PRN Reason: Pain, moderate (4-7) Last Admin: 06/05/18 18:46 Dose: 30 mg Oxycodone HCl (Oxycontin Extended Release Tab) 30 mg PO Q12 [facility] Stop: 06/08/18 10:01 Last Admin: 06/05/18 10:57 Dose: 30 mg Pantoprazole Sodium (Protonix Ec Tab) 40 mg PO ACB [facility] Sotalol HCl (Betapace) 80 mg PO BID [facility] Last Admin: 06/05/18 18:38 Dose: 80 mg - Labs Labs: 06/05/18 05:35 06/05/18 05:35 PT 14.4 SECONDS (9.4-12.5) H 06/04/18 07:00 INR 1.27 06/04/18 07:00 APTT 33.1 Seconds (26.9-38.3) 06/04/18 07:00 Assessment and Plan - Assessment and Plan (Free Text) Plan: Pt seen and examined by me. I have reviewed the note of the medical economics consultant and I agree with it. I have discussed the assessment and plan with the resident. I have reviewed the medications and the last labs.Please see the H and P note done today.
[2018-06-05] MEDS: Cefepime IV 2 gm in NS 2 GM/100 ML BAG IVPB SCH ×3 (05:50→21:28)
[2018-06-05 06:30] LABS: GRAN # 15.29 (1.4-6.5); GRAN % 93.6 % (50.0-68.0); HEMOGLOBIN 11.9 g/dL (14.0-18.0); LYMPH # 0.5 (1.2-3.4); LYMPH % 3.3 % (22.0-35.0); MEAN CELL VOLUME 86.9 fl (80.0-105.0); MEAN CORPUSCULAR HEMOGLOBIN 29.5 pg (25.0-35.0); MEAN CORPUSCULAR HGB CONC 33.9 g/dl (31.0-37.0); MEAN PLATELET VOLUME 11.6 fl (7.0-11.0); MONO # 0.5 (0.1-0.6); MONO % 3.1 % (1.0-6.0); RBC 4.04 10^6/uL (3.5-6.1); RED CELL DISTRIBUTION WIDTH 14.3 % (11.5-14.5); WHITE BLOOD COUNT 16.3 10^3/uL (4.5-11.0)
[2018-06-05 06:47] LABS: HDL CHOLESTEROL 19 mg/dL (29-60)
[2018-06-05 06:57] LABS: LDL CHOLESTEROL 56 mg/dL (0-129)
[2018-06-05] MEDS: oxyCODONE 30 mg Immediate Release Tab PO PRN ×2 (07:01→18:46)
[2018-06-05 07:03] LABS: FREE T4 1.78 ng/dL (0.78-2.19)
[2018-06-05 09:00] LABS: ALB/GLOB RATIO 1.1 (1.1-1.8); ALBUMIN 3.1 g/dL (3.0-4.8); ALT/SGPT 48 U/L (7-56); AST/SGOT 44 U/L (17-59); BLOOD UREA NITROGEN 36 mg/dL (7-21); CALCIUM 9.1 mg/dL (8.4-10.5); GFR NON-AFRICAN AMERICAN > 60
[2018-06-05] MEDS ORDERED: oxyCODONE 20 mg ER Tab (oxyCONTIN) PO SCH (10:00)
[2018-06-05] MEDS: Vancomycin 1gm in NS 250ml 1 GM/250 ML BAG IVPB SCH ×2 (10:18→22:45)
[2018-06-05] MEDS: Enoxaparin 60 mg Syringe SC SCH ×2 (10:19→21:29)
[2018-06-05] MEDS: oxyCODONE 10 mg ER Tab (oxyCONTIN) PO SCH ×2 (10:57→21:29)
--- NOTE | 2018-06-05 11:16 | PQF ---
PROVIDER RESPONSE TEXT: Acute respiratory failure with hypoxemia requiring BiPAP REVIEWER QUERY TEXT: Respiratory Failure Acuity and Type Respiratory Failure is documented in the Medical Record. Please specify the type and acuity (includes suspected or probable) Such as: -- Acute respiratory failure - With hypoxia - With hypercapnia -- Chronic respiratory failure - With hypoxia - With hypercapnia -- Acute on chronic respiratory failure - With hypoxia - With hypercapnia -- Other, please specify The patient's Clinical Indicators include: Your progress note on 06/05 includes hypoxic respiratory failure on Bipap as a diagnosis. More specificity is required for this diagnosis. Please specify acuity (acute, chronic, acute on chronic). Query created by: Joceline Matamoros on 06/05/2018 8:53 AM Electronically signed by: Felicia Smith 06/05/2018 11:13 AM
--- NOTE | 2018-06-05 12:10 | CP.CCUPN ---
<uEsebia Merida - Last Filed: 06/05/18 11:54> CCU Subjective - Physician Review Subjective (Free Text): Eusebia Merida, PGY-1, ICU Progress Note for Dr. Cowan Patient seen and evaluated at bedside. Patient had no overnight events. Patient denies any current complaints including chest pain, shortness of breath, nausea, vomiting, dysuria, hematuria. 12-point ROS was unremarkable except for what was mentioned above. CCU Objective - Vital Signs / Intake & Output Vital Signs (Last 4 hours): Vital Signs Pulse BP 06/05/18 10:19 81 114/49 L Intake and Output (Last 8hrs): Intake & Output 06/04/18 06/05/18 06/05/18 22:59 06:59 14:59 Intake Total 2770 2750 Output Total 700 450 Balance 2070 2300 Weight 115 lb Intake: IV 2770 2750 Right Forearm 2750 2750 Output: Urine 700 450 Urethral (Todd) 700 450 Other: Voiding Method Toilet - Physical Exam Head: Positive for: Atraumatic, Normocephalic Pupils: Positive for: PERRL Extroacular Muscles: Positive for: EOMI Conjunctiva: Positive for: Normal Mouth: Positive for: Moist Mucous Membranes Neck: Positive for: Normal Range of Motion Respiratory/Chest: Positive for: Wheezes (trace wheezing bilaterally), Rhonchi (left-side), Tachypneic Cardiovascular: Positive for: Regular Rate and Rhythm, Normal S1, S2. Negative for: Murmurs Abdomen: Negative for: Tenderness, Distention, Peritoneal Signs Back: Positive for: Normal Inspection Upper Extremity: Positive for: Normal Inspection. Negative for: Cyanosis, Edema Lower Extremity: Positive for: Normal Inspection. Negative for: Edema Neurological: Positive for: GCS=15, CN II-XII Intact, Speech Normal Skin: Positive for: Warm, Dry, Normal Color. Negative for: Rashes Psychiatric: Positive for: Alert, Oriented x 3, Normal Insight, Normal Concentration - Medications Active Medications: Active Medications Generic Name Dose Route Start Last Admin Trade Name Freq PRN Reason Stop Dose Admin Aspirin 81 mg 06/05/18 10:00 06/05/18 10:20 Ecotrin PO 81 mg DAILY ORIN Administration Atorvastatin Calcium 40 mg 06/04/18 22:00 06/04/18 21:16 Lipitor PO 40 mg HS ORIN Administration Enoxaparin Sodium 50 mg 06/04/18 22:00 06/05/18 10:19 Lovenox 1 mg/kg (50 mg) 50 mg SC Administration Q12 ORIN Protocol diltiaZEM IVPB 100mg in NS 100 mls @ 5 mls/hr 06/04/18 08:08 06/04/18 16:21 Cardizem 100mg In Ns IV 5 mg/hr .Q20H PRN 5 mls/hr TITRATE PER MD ORDER Administration Protocol 5 MG/HR Doxycycline Hyclate 100 mg/ 100 mls @ 100 mls/hr 06/04/18 10:00 06/05/18 10:16 Sodium Chloride IVPB 100 mls/hr Q12 ORIN Administration Protocol Cefepime HCl 2 gm in 100 mls @ 100 mls/hr 06/04/18 14:00 06/05/18 05:50 Maxipime 2gm IVPB 06/09/18 14:01 100 mls/hr Q8 ORIN Administration Protocol Vancomycin HCl 1 gm in 250 mls @ 167 mls/hr 06/04/18 10:45 06/05/18 10:18 Vancomycin 1gm IVPB 167 mls/hr Q12H ORIN Administration Protocol Methylprednisolone 40 mg 06/04/18 09:00 06/05/18 10:20 Solu-Medrol IVP 40 mg Q8H ORIN Administration Oxycodone HCl 30 mg 06/05/18 06:45 06/05/18 07:01 Oxycodone Immediate Release Tab PO 30 mg Q6H PRN Administration Pain, moderate (4-7) Oxycodone HCl 30 mg 06/05/18 10:00 06/05/18 10:57 Oxycontin Extended Release Tab PO 06/08/18 10:01 30 mg Q12 ORIN Administration Pantoprazole Sodium 40 mg 06/04/18 10:00 06/05/18 10:20 Protonix Inj IVP 40 mg DAILY ORIN Administration Sotalol HCl 80 mg 06/04/18 12:44 06/05/18 10:19 Betapace PO 80 mg BID ORIN Administration - Patient Studies Lab Studies: Microbiology Studies 06/04/18 14:40 Urine Culture - Final Urine Random No Growth (<1,000 CFU/ML) 06/04/18 07:20 Blood Culture - Preliminary Blood-Venous NO GROWTH AFTER 24 HOURS 06/04/18 07:04 Blood Culture - Preliminary Blood-Venous NO GROWTH AFTER 24 HOURS Lab Studies 06/05/18 06/05/18 06/05/18 Range/Units 05:35 05:35 05:35 WBC (4.5-11.0) 10^3/uL RBC (3.5-6.1) 10^6/uL Hgb (14.0-18.0) g/dL Hct (42.0-52.0) % MCV (80.0-105.0) fl MCH (25.0-35.0) pg MCHC (31.0-37.0) g/dl RDW (11.5-14.5) % Plt Count (120.0-450.0) 10^3/uL MPV (7.0-11.0) fl Gran % (50.0-68.0) % Lymph % (Auto) (22.0-35.0) % [place] % (Auto) (1.0-6.0) % Eos % (Auto) (1.5-5.0) % Baso % (Auto) (0.0-3.0) % Gran # (1.4-6.5) Lymph # (Auto) (1.2-3.4) [place] # (Auto) (0.1-0.6) Eos # (Auto) (0.0-0.7) Baso # (Auto) (0.0-2.0) K/mm3 pO2 (30-55) mm/Hg VBG pH (7.32-7.43) VBG pCO2 (40-60) VBG HCO3 (21-28) mmol/l VBG Total CO2 (22-28) mmol.L VBG O2 Sat (Calc) (40-65) % VBG Base Excess (0.0-2.0) mmol/L VBG Potassium (3.6-5.2) mmol/L Sodium (132-148) mmol/L Chloride (98-107) mmol/L Glucose (75-110) mg/dl Lactate (0.7-2.1) mmol/L FiO2 % Crit Value Called To Crit Value Called By Blood Gas Notified Time Potassium (3.6-5.0) mmol/L Carbon Dioxide (21-33) mmol/L Anion Gap (10-20) BUN (7-21) mg/dL Creatinine (0.8-1.5) mg/dl Est GFR ( Amer) Est GFR (Non-Af Amer) Random Glucose (70-110) mg/dL Hemoglobin A1c 6.0 (4.2-6.5) % Calcium (8.4-10.5) mg/dL Phosphorus (2.5-4.5) mg/dL Magnesium (1.7-2.2) mg/dL Total Bilirubin (0.2-1.3) mg/dL AST (17-59) U/L ALT (7-56) U/L Alkaline Phosphatase (38-126) U/L Troponin I ng/mL Total Protein (5.8-8.3) g/dL Albumin (3.0-4.8) g/dL Globulin gm/dL Albumin/Globulin Ratio (1.1-1.8) Triglycerides 115 (35-160) mg/dL Cholesterol 93 L (130-200) mg/dL LDL Cholesterol Direct 56 (0-129) mg/dL HDL Cholesterol 19 L (29-60) mg/dL Procalcitonin (0.19-0.49) NG/ML Free T4 1.78 (0.78-2.19) ng/dL TSH 3rd Generation 0.16 L (0.46-4.68) mIU/mL Venous Blood Potassium (3.6-5.2) mmol/L Digoxin (0.8-2.0) ng/mL Ur L.pneumophila Ag (NEGATIVE) 06/05/18 06/05/18 06/04/18 Range/Units 05:35 05:35 16:10 WBC 16.3 H (4.5-11.0) 10^3/uL RBC 4.04 (3.5-6.1) 10^6/uL Hgb 11.9 L (14.0-18.0) g/dL Hct 35.1 L (42.0-52.0) % MCV 86.9 (80.0-105.0) fl MCH 29.5 (25.0-35.0) pg MCHC 33.9 (31.0-37.0) g/dl RDW 14.3 (11.5-14.5) % Plt Count 200 (120.0-450.0) 10^3/uL MPV 11.6 H (7.0-11.0) fl Gran % 93.6 H (50.0-68.0) % Lymph % (Auto) 3.3 L (22.0-35.0) % [place] % (Auto) 3.1 (1.0-6.0) % Eos % (Auto) 0.0 L (1.5-5.0) % Baso % (Auto) 0.0 (0.0-3.0) % Gran # 15.29 H (1.4-6.5) Lymph # (Auto) 0.5 L (1.2-3.4) [place] # (Auto) 0.5 (0.1-0.6) Eos # (Auto) 0.0 (0.0-0.7) Baso # (Auto) 0.00 (0.0-2.0) K/mm3 pO2 61 H (30-55) mm/Hg VBG pH 7.43 (7.32-7.43) VBG pCO2 34.0 L (40-60) VBG HCO3 22.6 (21-28) mmol/l VBG Total CO2 23.6 (22-28) mmol.L VBG O2 Sat (Calc) 95.3 H (40-65) % VBG Base Excess -1.1 L (0.0-2.0) mmol/L VBG Potassium 3.2 L (3.6-5.2) mmol/L Sodium 137 134.0 (132-148) mmol/L Chloride 106 101.0 (98-107) mmol/L Glucose 314 H (75-110) mg/dl Lactate 1.8 (0.7-2.1) mmol/L FiO2 21.0 % Crit Value Called To Crit Value Called By Blood Gas Notified Time Potassium 3.9 (3.6-5.0) mmol/L Carbon Dioxide 22 (21-33) mmol/L Anion Gap 12 (10-20) BUN 36 H (7-21) mg/dL Creatinine 0.9 (0.8-1.5) mg/dl Est GFR ( Amer) > 60 Est GFR (Non-Af Amer) > 60 Random Glucose 154 H (70-110) mg/dL Hemoglobin A1c (4.2-6.5) % Calcium 9.1 (8.4-10.5) mg/dL Phosphorus 4.0 (2.5-4.5) mg/dL Magnesium 2.2 (1.7-2.2) mg/dL Total Bilirubin 0.4 (0.2-1.3) mg/dL AST 44 (17-59) U/L ALT 48 (7-56) U/L Alkaline Phosphatase 67 (38-126) U/L Troponin I ng/mL Total Protein 6.0 (5.8-8.3) g/dL Albumin 3.1 (3.0-4.8) g/dL Globulin 2.9 gm/dL Albumin/Globulin Ratio 1.1 (1.1-1.8) Triglycerides (35-160) mg/dL Cholesterol (130-200) mg/dL LDL Cholesterol Direct (0-129) mg/dL HDL Cholesterol (29-60) mg/dL Procalcitonin (0.19-0.49) NG/ML Free T4 (0.78-2.19) ng/dL TSH 3rd Generation (0.46-4.68) mIU/mL Venous Blood Potassium 3.2 L (3.6-5.2) mmol/L Digoxin (0.8-2.0) ng/mL Ur L.pneumophila Ag (NEGATIVE) 06/04/18 06/04/18 06/04/18 Range/Units 12:30 12:30 12:30 WBC 18.1 H (4.5-11.0) 10^3/uL RBC 4.72 (3.5-6.1) 10^6/uL Hgb 13.8 L (14.0-18.0) g/dL Hct 41.5 L (42.0-52.0) % MCV 87.9 (80.0-105.0) fl MCH 29.2 (25.0-35.0) pg MCHC 33.3 (31.0-37.0) g/dl RDW 14.3 (11.5-14.5) % Plt Count 188 (120.0-450.0) 10^3/uL MPV 11.5 H (7.0-11.0) fl Gran % 97.1 H (50.0-68.0) % Lymph % (Auto) 1.5 L (22.0-35.0) % [place] % (Auto) 1.4 (1.0-6.0) % Eos % (Auto) 0.0 L (1.5-5.0) % Baso % (Auto) 0.0 (0.0-3.0) % Gran # 17.60 H (1.4-6.5) Lymph # (Auto) 0.3 L (1.2-3.4) [place] # (Auto) 0.3 (0.1-0.6) Eos # (Auto) 0.0 (0.0-0.7) Baso # (Auto) 0.00 (0.0-2.0) K/mm3 pO2 (30-55) mm/Hg VBG pH (7.32-7.43) VBG pCO2 (40-60) VBG HCO3 (21-28) mmol/l VBG Total CO2 (22-28) mmol.L VBG O2 Sat (Calc) (40-65) % VBG Base Excess (0.0-2.0) mmol/L VBG Potassium (3.6-5.2) mmol/L Sodium 138 (132-148) mmol/L Chloride 103 (98-107) mmol/L Glucose (75-110) mg/dl Lactate (0.7-2.1) mmol/L FiO2 % Crit Value Called To Crit Value Called By Blood Gas Notified Time Potassium 3.8 (3.6-5.0) mmol/L Carbon Dioxide 25 (21-33) mmol/L Anion Gap 14 (10-20) BUN 32 H (7-21) mg/dL Creatinine 1.0 (0.8-1.5) mg/dl Est GFR ( Amer) > 60 Est GFR (Non-Af Amer) > 60 Random Glucose 168 H (70-110) mg/dL Hemoglobin A1c (4.2-6.5) % Calcium 8.9 (8.4-10.5) mg/dL Phosphorus 4.0 (2.5-4.5) mg/dL Magnesium 1.6 L (1.7-2.2) mg/dL Total Bilirubin 0.9 (0.2-1.3) mg/dL AST 25 (17-59) U/L ALT 28 (7-56) U/L Alkaline Phosphatase 71 (38-126) U/L Troponin I 0.03 D ng/mL Total Protein 7.0 (5.8-8.3) g/dL Albumin 3.7 (3.0-4.8) g/dL Globulin 3.3 gm/dL Albumin/Globulin Ratio 1.1 (1.1-1.8) Triglycerides (35-160) mg/dL Cholesterol (130-200) mg/dL LDL Cholesterol Direct (0-129) mg/dL HDL Cholesterol (29-60) mg/dL Procalcitonin (0.19-0.49) NG/ML Free T4 (0.78-2.19) ng/dL TSH 3rd Generation (0.46-4.68) mIU/mL Venous Blood Potassium (3.6-5.2) mmol/L Digoxin 1.0 (0.8-2.0) ng/mL Ur L.pneumophila Ag (NEGATIVE) 06/04/18 06/04/18 06/04/18 Range/Units 12:30 10:00 09:35 WBC (4.5-11.0) 10^3/uL RBC (3.5-6.1) 10^6/uL Hgb (14.0-18.0) g/dL Hct (42.0-52.0) % MCV (80.0-105.0) fl MCH (25.0-35.0) pg MCHC (31.0-37.0) g/dl RDW (11.5-14.5) % Plt Count (120.0-450.0) 10^3/uL MPV (7.0-11.0) fl Gran % (50.0-68.0) % Lymph % (Auto) (22.0-35.0) % [place] % (Auto) (1.0-6.0) % Eos % (Auto) (1.5-5.0) % Baso % (Auto) (0.0-3.0) % Gran # (1.4-6.5) Lymph # (Auto) (1.2-3.4) [place] # (Auto) (0.1-0.6) Eos # (Auto) (0.0-0.7) Baso # (Auto) (0.0-2.0) K/mm3 pO2 30 (30-55) mm/Hg VBG pH 7.34 (7.32-7.43) VBG pCO2 46.0 (40-60) VBG HCO3 24.8 (21-28) mmol/l VBG Total CO2 26.2 (22-28) mmol.L VBG O2 Sat (Calc) 61.6 (40-65) % VBG Base Excess -1.3 L (0.0-2.0) mmol/L VBG Potassium 3.9 (3.6-5.2) mmol/L Sodium 137.0 (132-148) mmol/L Chloride 101.0 (98-107) mmol/L Glucose 174 H (75-110) mg/dl Lactate 2.4 H (0.7-2.1) mmol/L FiO2 21.0 % Crit Value Called To Yessica serrano Crit Value Called By Ab Blood Gas Notified Time 1240 Potassium (3.6-5.0) mmol/L Carbon Dioxide (21-33) mmol/L Anion Gap (10-20) BUN (7-21) mg/dL Creatinine (0.8-1.5) mg/dl Est GFR ( Amer) Est GFR (Non-Af Amer) Random Glucose (70-110) mg/dL Hemoglobin A1c (4.2-6.5) % Calcium (8.4-10.5) mg/dL Phosphorus (2.5-4.5) mg/dL Magnesium (1.7-2.2) mg/dL Total Bilirubin (0.2-1.3) mg/dL AST (17-59) U/L ALT (7-56) U/L Alkaline Phosphatase (38-126) U/L Troponin I ng/mL Total Protein (5.8-8.3) g/dL Albumin (3.0-4.8) g/dL Globulin gm/dL Albumin/Globulin Ratio (1.1-1.8) Triglycerides (35-160) mg/dL Cholesterol (130-200) mg/dL LDL Cholesterol Direct (0-129) mg/dL HDL Cholesterol (29-60) mg/dL Procalcitonin 8.57 H (0.19-0.49) NG/ML Free T4 (0.78-2.19) ng/dL TSH 3rd Generation (0.46-4.68) mIU/mL Venous Blood Potassium 3.9 (3.6-5.2) mmol/L Digoxin (0.8-2.0) ng/mL Ur L.pneumophila Ag Negative (NEGATIVE) Laboratory Results - last 24 hr 06/04/18 06/04/18 06/04/18 09:35 10:00 12:30 WBC RBC Hgb Hct MCV MCH MCHC RDW Plt Count MPV Gran % Lymph % (Auto) [place] % (Auto) Eos % (Auto) Baso % (Auto) Gran # Lymph # (Auto) [place] # (Auto) Eos # (Auto) Baso # (Auto) pO2 30 VBG pH 7.34 VBG pCO2 46.0 VBG HCO3 24.8 VBG Total CO2 26.2 VBG O2 Sat (Calc) 61.6 VBG Base Excess -1.3 L VBG Potassium 3.9 Sodium 137.0 Chloride 101.0 Glucose 174 H Lactate 2.4 H FiO2 21.0 Crit Value Called To Yessica serrano Crit Value Called By Ab Blood Gas Notified Time 1240 Potassium Carbon Dioxide Anion Gap BUN Creatinine Est GFR ( Amer) Est GFR (Non-Af Amer) Random Glucose Hemoglobin A1c Calcium Phosphorus Magnesium Total Bilirubin AST ALT Alkaline Phosphatase Troponin I Total Protein Albumin Globulin Albumin/Globulin Ratio Triglycerides Cholesterol LDL Cholesterol Direct HDL Cholesterol Procalcitonin 8.57 H Free T4 TSH 3rd Generation Venous Blood Potassium 3.9 Digoxin Ur L.pneumophila Ag Negative 06/04/18 06/04/18 06/04/18 12:30 12:30 12:30 WBC 18.1 H RBC 4.72 Hgb 13.8 L Hct 41.5 L MCV 87.9 MCH 29.2 MCHC 33.3 RDW 14.3 Plt Count 188 MPV 11.5 H Gran % 97.1 H Lymph % (Auto) 1.5 L [place] % (Auto) 1.4 Eos % (Auto) 0.0 L Baso % (Auto) 0.0 Gran # 17.60 H Lymph # (Auto) 0.3 L [place] # (Auto) 0.3 Eos # (Auto) 0.0 Baso # (Auto) 0.00 pO2 VBG pH VBG pCO2 VBG HCO3 VBG Total CO2 VBG O2 Sat (Calc) VBG Base Excess VBG Potassium Sodium 138 Chloride 103 Glucose Lactate FiO2 Crit Value Called To Crit Value Called By Blood Gas Notified Time Potassium 3.8 Carbon Dioxide 25 Anion Gap 14 BUN 32 H Creatinine 1.0 Est GFR ( Amer) > 60 Est GFR (Non-Af Amer) > 60 Random Glucose 168 H Hemoglobin A1c Calcium 8.9 Phosphorus 4.0 Magnesium 1.6 L Total Bilirubin 0.9 AST 25 ALT 28 Alkaline Phosphatase 71 Troponin I 0.03 D Total Protein 7.0 Albumin 3.7 Globulin 3.3 Albumin/Globulin Ratio 1.1 Triglycerides Cholesterol LDL Cholesterol Direct HDL Cholesterol Procalcitonin Free T4 TSH 3rd Generation Venous Blood Potassium Digoxin 1.0 Ur L.pneumophila Ag 06/04/18 06/05/18 06/05/18 16:10 05:35 05:35 WBC 16.3 H RBC 4.04 Hgb 11.9 L Hct 35.1 L MCV 86.9 MCH 29.5 MCHC 33.9 RDW 14.3 Plt Count 200 MPV 11.6 H Gran % 93.6 H Lymph % (Auto) 3.3 L [place] % (Auto) 3.1 Eos % (Auto) 0.0 L Baso % (Auto) 0.0 Gran # 15.29 H Lymph # (Auto) 0.5 L [place] # (Auto) 0.5 Eos # (Auto) 0.0 Baso # (Auto) 0.00 pO2 61 H VBG pH 7.43 VBG pCO2 34.0 L VBG HCO3 22.6 VBG Total CO2 23.6 VBG O2 Sat (Calc) 95.3 H VBG Base Excess -1.1 L VBG Potassium 3.2 L Sodium 134.0 137 Chloride 101.0 106 Glucose 314 H Lactate 1.8 FiO2 21.0 Crit Value Called To Crit Value Called By Blood Gas Notified Time Potassium 3.9 Carbon Dioxide 22 Anion Gap 12 BUN 36 H Creatinine 0.9 Est GFR ( Amer) > 60 Est GFR (Non-Af Amer) > 60 Random Glucose 154 H Hemoglobin A1c Calcium 9.1 Phosphorus 4.0 Magnesium 2.2 Total Bilirubin 0.4 AST 44 ALT 48 Alkaline Phosphatase 67 Troponin I Total Protein 6.0 Albumin 3.1 Globulin 2.9 Albumin/Globulin Ratio 1.1 Triglycerides Cholesterol LDL Cholesterol Direct HDL Cholesterol Procalcitonin Free T4 TSH 3rd Generation Venous Blood Potassium 3.2 L Digoxin Ur L.pneumophila Ag 06/05/18 06/05/18 06/05/18 05:35 05:35 05:35 WBC RBC Hgb Hct MCV MCH MCHC RDW Plt Count MPV Gran % Lymph % (Auto) [place] % (Auto) Eos % (Auto) Baso % (Auto) Gran # Lymph # (Auto) [place] # (Auto) Eos # (Auto) Baso # (Auto) pO2 VBG pH VBG pCO2 VBG HCO3 VBG Total CO2 VBG O2 Sat (Calc) VBG Base Excess VBG Potassium Sodium Chloride Glucose Lactate FiO2 Crit Value Called To Crit Value Called By Blood Gas Notified Time Potassium Carbon Dioxide Anion Gap BUN Creatinine Est GFR ( Amer) Est GFR (Non-Af Amer) Random Glucose Hemoglobin A1c 6.0 Calcium Phosphorus Magnesium Total Bilirubin AST ALT Alkaline Phosphatase Troponin I Total Protein Albumin Globulin Albumin/Globulin Ratio Triglycerides 115 Cholesterol 93 L LDL Cholesterol Direct 56 HDL Cholesterol 19 L Procalcitonin Free T4 1.78 TSH 3rd Generation 0.16 L Venous Blood Potassium Digoxin Ur L.pneumophila Ag Radiology Impressions: Radiology Impressions Abdomen/Pelvis CT 06/04/18 09:11 IMPRESSION: No bowel obstruction. The exam is limited in terms of evaluating for colitis without IV contrast. No gross prominent diverticulosis with the concomitant gross diverticulitis appreciated. Moderate stool retention. Redundant rectosigmoid colon noted Left lower lobe posterior/dependent consolidation as referenced above. This is an interval change with the prior exam. Concomitant more hyperdense left pleural effusion not excluded. Interval minimal left pericardial effusion. Follow-up recommended. Atherosclerotic vascular calcifications present. 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 This is believed similar in caliber although previously referenced different measurements were provided. EKG/Cardiology Studies: Cardiology / EKG Studies 06/04/18 16:25 EKG [ELECTROCARDIOGRAM] Stat Comment: Reason For Exam: confirming return to NSR Review of Systems - Review of Systems Review of Systems: except for what was mentioned in HPI Critical Care Progress Note - Ventilator Checklist Head of Bed 30 Degrees: Yes PUD Prophalyxis: Yes DVT Prophylaxis: Yes - Nutrition Nutrition: Nutrition Category Date Time Status Heart Healthy Diet [DIET] Diets 06/04/18 Lunch Active Assessment/Plan - Assessment and Plan (Free Text) Assessment: 77 year old male with past medical history of COPD, CAD s/p 3 SABINE tents, hyperlipidemia, PAD, chronic right humerus fractures, asthma, hypertension presented with productive cough and shortness of breath for a few days. Initial EKG showed atrial fibrillation with RVR with HR: 183 Plan: Neuro: -AAOx3, no FND, moving extremities past midline. -Monitor neuro status. -Reorient patient as necessary. Cardio: Atrial Fibrillation-resolved -RRR, normotensive, no signs of HD compromise -Patient converted to NSR with administration of sotalol -Anticoagulation with lovenox 50 mg SC BID -Maintain MAP>65. -Monitor for S/S, HD compromise. CAD -Continue with aspirin, lipitor, and sotalol Elevated BUN -Echocardiogram: LVEF: 55%, grade one abnormal relaxation -Continue to monitor for signs and symptoms of CHF Pulm: Hypoxemic respiratory failure -Patient is stating well on room air. -ABG 06/04: pH: 7.39, pCO2: 32, pO2: 60 -Maintain O2 saturation>95%. -O2 NC PRN -Elevate bed to 30 degrees COPD -Solumedrol 40 mg Q8 -Duonebs Q4 -Supplemental O2 as needed HCAP -CXR: interval patchy coalescent left basal infiltrate. Background COPD, interstitial lung appearance -Continue with cefepime, doxycycline, and vancomycin day 2 GI: Diarrhea, rule out infectious etiology -C. Diff stool toxin ordered -C. Diff covered with vancomycin Diet -HHD GI prophylaxis -Protonix 40 mg daily /Nephro: -BUN/Cr stable at 36/0.9 -Good urine output -Continue monitoring. -Replete electrolytes as needed. -Maintain euvolemia. Endocrinology: -Random glucose: 154 -Maintain euglycemia. Heme/Onc: -H/H stable at 11.9/35.1 -No signs of HD compromise. -Continue monitoring H/H DVT prophylaxis -Therapeutic lovenox 50 mg SC Q12 ID: HCAP -Leukocytosis improved to 16.3 from 20.9 -CXR: interval patchy coalescent left basal infiltrate. Background COPD, interstitial lung appearance -Blood culture: negative for 24 hours -Procalcitonin: 8.57 -Lactate: 1.8 from 2.4 -Continue with cefepime, doxycycline, and vancomycin day 2 -Monitor for signs and symptoms of infection. Disposition: Patient is hemodynamically stable and ready for transfer to telemetry floor. Patient seen and examined with Dr. Cowan. - Date & Time Date: 06/05/18 Time: 11:56 <Miah Cowan - Last Filed: 06/05/18 15:17> CCU Objective - Vital Signs / Intake & Output Vital Signs (Last 4 hours): Vital Signs Pulse Resp BP Pulse Ox 06/05/18 13:00 65 35 H 89 L 06/05/18 12:00 66 126/67 96 Intake and Output (Last 8hrs): Intake & Output 06/05/18 06/05/18 06/05/18 06:59 14:59 22:59 Intake Total 2750 Output Total 450 Balance 2300 Intake: IV 2750 Right Forearm 2750 Output: Urine 450 Urethral (Todd) 450 - Medications Active Medications: Active Medications Generic Name Dose Route Start Last Admin Trade Name Freq PRN Reason Stop Dose Admin Aspirin 81 mg 06/05/18 10:00 06/05/18 10:20 Ecotrin PO 81 mg DAILY ORIN Administration Atorvastatin Calcium 40 mg 06/04/18 22:00 06/04/18 21:16 Lipitor PO 40 mg HS ORIN Administration Enoxaparin Sodium 50 mg 06/04/18 22:00 06/05/18 10:19 Lovenox 1 mg/kg (50 mg) 50 mg SC Administration Q12 ORIN Protocol diltiaZEM IVPB 100mg in NS 100 mls @ 5 mls/hr 06/04/18 08:08 06/04/18 16:21 Cardizem 100mg In Ns IV 5 mg/hr .Q20H PRN 5 mls/hr TITRATE PER MD ORDER Administration Protocol 5 MG/HR Doxycycline Hyclate 100 mg/ 100 mls @ 100 mls/hr 06/04/18 10:00 06/05/18 10:16 Sodium Chloride IVPB 100 mls/hr Q12 ORIN Administration Protocol Cefepime HCl 2 gm in 100 mls @ 100 mls/hr 06/04/18 14:00 06/05/18 05:50 Maxipime 2gm IVPB 06/09/18 14:01 100 mls/hr Q8 ORIN Administration Protocol Vancomycin HCl 1 gm in 250 mls @ 167 mls/hr 06/04/18 10:45 06/05/18 10:18 Vancomycin 1gm IVPB 167 mls/hr Q12H ORIN Administration Protocol Methylprednisolone 40 mg 06/04/18 09:00 06/05/18 10:20 Solu-Medrol IVP 40 mg Q8H ORIN Administration Oxycodone HCl 30 mg 06/05/18 06:45 06/05/18 07:01 Oxycodone Immediate Release Tab PO 30 mg Q6H PRN Administration Pain, moderate (4-7) Oxycodone HCl 30 mg 06/05/18 10:00 06/05/18 10:57 Oxycontin Extended Release Tab PO 06/08/18 10:01 30 mg Q12 ORIN Administration Pantoprazole Sodium 40 mg 06/06/18 07:30 Protonix Ec Tab PO ACB ORIN Sotalol HCl 80 mg 06/04/18 12:44 06/05/18 10:19 Betapace PO 80 mg BID ORIN Administration - Patient Studies Lab Studies: Microbiology Studies 06/04/18 14:40 Urine Culture - Final Urine Random No Growth (<1,000 CFU/ML) 06/04/18 07:20 Blood Culture - Preliminary Blood-Venous NO GROWTH AFTER 24 HOURS 06/04/18 07:04 Blood Culture - Preliminary Blood-Venous NO GROWTH AFTER 24 HOURS Lab Studies 06/05/18 06/05/18 06/05/18 Range/Units 05:35 05:35 05:35 WBC (4.5-11.0) 10^3/uL RBC (3.5-6.1) 10^6/uL Hgb (14.0-18.0) g/dL Hct (42.0-52.0) % MCV (80.0-105.0) fl MCH (25.0-35.0) pg MCHC (31.0-37.0) g/dl RDW (11.5-14.5) % Plt Count (120.0-450.0) 10^3/uL MPV (7.0-11.0) fl Gran % (50.0-68.0) % Lymph % (Auto) (22.0-35.0) % [place] % (Auto) (1.0-6.0) % Eos % (Auto) (1.5-5.0) % Baso % (Auto) (0.0-3.0) % Gran # (1.4-6.5) Lymph # (Auto) (1.2-3.4) [place] # (Auto) (0.1-0.6) Eos # (Auto) (0.0-0.7) Baso # (Auto) (0.0-2.0) K/mm3 pO2 (30-55) mm/Hg VBG pH (7.32-7.43) VBG pCO2 (40-60) VBG HCO3 (21-28) mmol/l VBG Total CO2 (22-28) mmol.L VBG O2 Sat (Calc) (40-65) % VBG Base Excess (0.0-2.0) mmol/L VBG Potassium (3.6-5.2) mmol/L Sodium (132-148) mmol/L Chloride (98-107) mmol/L Glucose (75-110) mg/dl Lactate (0.7-2.1) mmol/L FiO2 % Potassium (3.6-5.0) mmol/L Carbon Dioxide (21-33) mmol/L Anion Gap (10-20) BUN (7-21) mg/dL Creatinine (0.8-1.5) mg/dl Est GFR ( Amer) Est GFR (Non-Af Amer) Random Glucose (70-110) mg/dL Hemoglobin A1c 6.0 (4.2-6.5) % Calcium (8.4-10.5) mg/dL Phosphorus (2.5-4.5) mg/dL Magnesium (1.7-2.2) mg/dL Total Bilirubin (0.2-1.3) mg/dL AST (17-59) U/L ALT (7-56) U/L Alkaline Phosphatase (38-126) U/L Total Protein (5.8-8.3) g/dL Albumin (3.0-4.8) g/dL Globulin gm/dL Albumin/Globulin Ratio (1.1-1.8) Triglycerides 115 (35-160) mg/dL Cholesterol 93 L (130-200) mg/dL LDL Cholesterol Direct 56 (0-129) mg/dL HDL Cholesterol 19 L (29-60) mg/dL Procalcitonin (0.19-0.49) NG/ML Free T4 1.78 (0.78-2.19) ng/dL TSH 3rd Generation 0.16 L (0.46-4.68) mIU/mL Venous Blood Potassium (3.6-5.2) mmol/L Ur L.pneumophila Ag (NEGATIVE) 06/05/18 06/05/18 06/04/18 Range/Units 05:35 05:35 16:10 WBC 16.3 H (4.5-11.0) 10^3/uL RBC 4.04 (3.5-6.1) 10^6/uL Hgb 11.9 L (14.0-18.0) g/dL Hct 35.1 L (42.0-52.0) % MCV 86.9 (80.0-105.0) fl MCH 29.5 (25.0-35.0) pg MCHC 33.9 (31.0-37.0) g/dl RDW 14.3 (11.5-14.5) % Plt Count 200 (120.0-450.0) 10^3/uL MPV 11.6 H (7.0-11.0) fl Gran % 93.6 H (50.0-68.0) % Lymph % (Auto) 3.3 L (22.0-35.0) % [place] % (Auto) 3.1 (1.0-6.0) % Eos % (Auto) 0.0 L (1.5-5.0) % Baso % (Auto) 0.0 (0.0-3.0) % Gran # 15.29 H (1.4-6.5) Lymph # (Auto) 0.5 L (1.2-3.4) [place] # (Auto) 0.5 (0.1-0.6) Eos # (Auto) 0.0 (0.0-0.7) Baso # (Auto) 0.00 (0.0-2.0) K/mm3 pO2 61 H (30-55) mm/Hg VBG pH 7.43 (7.32-7.43) VBG pCO2 34.0 L (40-60) VBG HCO3 22.6 (21-28) mmol/l VBG Total CO2 23.6 (22-28) mmol.L VBG O2 Sat (Calc) 95.3 H (40-65) % VBG Base Excess -1.1 L (0.0-2.0) mmol/L VBG Potassium 3.2 L (3.6-5.2) mmol/L Sodium 137 134.0 (132-148) mmol/L Chloride 106 101.0 (98-107) mmol/L Glucose 314 H (75-110) mg/dl Lactate 1.8 (0.7-2.1) mmol/L FiO2 21.0 % Potassium 3.9 (3.6-5.0) mmol/L Carbon Dioxide 22 (21-33) mmol/L Anion Gap 12 (10-20) BUN 36 H (7-21) mg/dL Creatinine 0.9 (0.8-1.5) mg/dl Est GFR ( Amer) > 60 Est GFR (Non-Af Amer) > 60 Random Glucose 154 H (70-110) mg/dL Hemoglobin A1c (4.2-6.5) % Calcium 9.1 (8.4-10.5) mg/dL Phosphorus 4.0 (2.5-4.5) mg/dL Magnesium 2.2 (1.7-2.2) mg/dL Total Bilirubin 0.4 (0.2-1.3) mg/dL AST 44 (17-59) U/L ALT 48 (7-56) U/L Alkaline Phosphatase 67 (38-126) U/L Total Protein 6.0 (5.8-8.3) g/dL Albumin 3.1 (3.0-4.8) g/dL Globulin 2.9 gm/dL Albumin/Globulin Ratio 1.1 (1.1-1.8) Triglycerides (35-160) mg/dL Cholesterol (130-200) mg/dL LDL Cholesterol Direct (0-129) mg/dL HDL Cholesterol (29-60) mg/dL Procalcitonin (0.19-0.49) NG/ML Free T4 (0.78-2.19) ng/dL TSH 3rd Generation (0.46-4.68) mIU/mL Venous Blood Potassium 3.2 L (3.6-5.2) mmol/L Ur L.pneumophila Ag (NEGATIVE) 06/04/18 06/04/18 Range/Units 10:00 09:35 WBC (4.5-11.0) 10^3/uL RBC (3.5-6.1) 10^6/uL Hgb (14.0-18.0) g/dL Hct (42.0-52.0) % MCV (80.0-105.0) fl MCH (25.0-35.0) pg MCHC (31.0-37.0) g/dl RDW (11.5-14.5) % Plt Count (120.0-450.0) 10^3/uL MPV (7.0-11.0) fl Gran % (50.0-68.0) % Lymph % (Auto) (22.0-35.0) % [place] % (Auto) (1.0-6.0) % Eos % (Auto) (1.5-5.0) % Baso % (Auto) (0.0-3.0) % Gran # (1.4-6.5) Lymph # (Auto) (1.2-3.4) [place] # (Auto) (0.1-0.6) Eos # (Auto) (0.0-0.7) Baso # (Auto) (0.0-2.0) K/mm3 pO2 (30-55) mm/Hg VBG pH (7.32-7.43) VBG pCO2 (40-60) VBG HCO3 (21-28) mmol/l VBG Total CO2 (22-28) mmol.L VBG O2 Sat (Calc) (40-65) % VBG Base Excess (0.0-2.0) mmol/L VBG Potassium (3.6-5.2) mmol/L Sodium (132-148) mmol/L Chloride (98-107) mmol/L Glucose (75-110) mg/dl Lactate (0.7-2.1) mmol/L FiO2 % Potassium (3.6-5.0) mmol/L Carbon Dioxide (21-33) mmol/L Anion Gap (10-20) BUN (7-21) mg/dL Creatinine (0.8-1.5) mg/dl Est GFR ( Amer) Est GFR (Non-Af Amer) Random Glucose (70-110) mg/dL Hemoglobin A1c (4.2-6.5) % Calcium (8.4-10.5) mg/dL Phosphorus (2.5-4.5) mg/dL Magnesium (1.7-2.2) mg/dL Total Bilirubin (0.2-1.3) mg/dL AST (17-59) U/L ALT (7-56) U/L Alkaline Phosphatase (38-126) U/L Total Protein (5.8-8.3) g/dL Albumin (3.0-4.8) g/dL Globulin gm/dL Albumin/Globulin Ratio (1.1-1.8) Triglycerides (35-160) mg/dL Cholesterol (130-200) mg/dL LDL Cholesterol Direct (0-129) mg/dL HDL Cholesterol (29-60) mg/dL Procalcitonin 8.57 H (0.19-0.49) NG/ML Free T4 (0.78-2.19) ng/dL TSH 3rd Generation (0.46-4.68) mIU/mL Venous Blood Potassium (3.6-5.2) mmol/L Ur L.pneumophila Ag Negative (NEGATIVE) Laboratory Results - last 24 hr 06/04/18 06/04/18 06/04/18 09:35 10:00 16:10 WBC RBC Hgb Hct MCV MCH MCHC RDW Plt Count MPV Gran % Lymph % (Auto) [place] % (Auto) Eos % (Auto) Baso % (Auto) Gran # Lymph # (Auto) [place] # (Auto) Eos # (Auto) Baso # (Auto) pO2 61 H VBG pH 7.43 VBG pCO2 34.0 L VBG HCO3 22.6 VBG Total CO2 23.6 VBG O2 Sat (Calc) 95.3 H VBG Base Excess -1.1 L VBG Potassium 3.2 L Sodium 134.0 Chloride 101.0 Glucose 314 H Lactate 1.8 FiO2 21.0 Potassium Carbon Dioxide Anion Gap BUN Creatinine Est GFR ( Amer) Est GFR (Non-Af Amer) Random Glucose Hemoglobin A1c Calcium Phosphorus Magnesium Total Bilirubin AST ALT Alkaline Phosphatase Total Protein Albumin Globulin Albumin/Globulin Ratio Triglycerides Cholesterol LDL Cholesterol Direct HDL Cholesterol Procalcitonin 8.57 H Free T4 TSH 3rd Generation Venous Blood Potassium 3.2 L Ur L.pneumophila Ag Negative 06/05/18 06/05/18 06/05/18 05:35 05:35 05:35 WBC 16.3 H RBC 4.04 Hgb 11.9 L Hct 35.1 L MCV 86.9 MCH 29.5 MCHC 33.9 RDW 14.3 Plt Count 200 MPV 11.6 H Gran % 93.6 H Lymph % (Auto) 3.3 L [place] % (Auto) 3.1 Eos % (Auto) 0.0 L Baso % (Auto) 0.0 Gran # 15.29 H Lymph # (Auto) 0.5 L [place] # (Auto) 0.5 Eos # (Auto) 0.0 Baso # (Auto) 0.00 pO2 VBG pH VBG pCO2 VBG HCO3 VBG Total CO2 VBG O2 Sat (Calc) VBG Base Excess VBG Potassium Sodium 137 Chloride 106 Glucose Lactate FiO2 Potassium 3.9 Carbon Dioxide 22 Anion Gap 12 BUN 36 H Creatinine 0.9 Est GFR ( Amer) > 60 Est GFR (Non-Af Amer) > 60 Random Glucose 154 H Hemoglobin A1c Calcium 9.1 Phosphorus 4.0 Magnesium 2.2 Total Bilirubin 0.4 AST 44 ALT 48 Alkaline Phosphatase 67 Total Protein 6.0 Albumin 3.1 Globulin 2.9 Albumin/Globulin Ratio 1.1 Triglycerides 115 Cholesterol 93 L LDL Cholesterol Direct 56 HDL Cholesterol 19 L Procalcitonin Free T4 TSH 3rd Generation Venous Blood Potassium Ur L.pneumophila Ag 06/05/18 06/05/18 05:35 05:35 WBC RBC Hgb Hct MCV MCH MCHC RDW Plt Count MPV Gran % Lymph % (Auto) [place] % (Auto) Eos % (Auto) Baso % (Auto) Gran # Lymph # (Auto) [place] # (Auto) Eos # (Auto) Baso # (Auto) pO2 VBG pH VBG pCO2 VBG HCO3 VBG Total CO2 VBG O2 Sat (Calc) VBG Base Excess VBG Potassium Sodium Chloride Glucose Lactate FiO2 Potassium Carbon Dioxide Anion Gap BUN Creatinine Est GFR ( Amer) Est GFR (Non-Af Amer) Random Glucose Hemoglobin A1c 6.0 Calcium Phosphorus Magnesium Total Bilirubin AST ALT Alkaline Phosphatase Total Protein Albumin Globulin Albumin/Globulin Ratio Triglycerides Cholesterol LDL Cholesterol Direct HDL Cholesterol Procalcitonin Free T4 1.78 TSH 3rd Generation 0.16 L Venous Blood Potassium Ur L.pneumophila Ag EKG/Cardiology Studies: Cardiology / EKG Studies 06/04/18 16:25 EKG [ELECTROCARDIOGRAM] Stat Comment: Reason For Exam: confirming return to [facility] Critical Care Progress Note - Nutrition Nutrition: Nutrition Category Date Time Status Heart Healthy Diet [DIET] Diets 06/04/18 Lunch Active Attending/Attestation - Attestation I have personally seen and examined this patient.: Yes I have fully participated in the care of the patient.: Yes I have reviewed all pertinent clinical information: Yes Notes (Text): 06/05/18 15:05 77 yo male was admitted for new onset afib in the setting of COPD exacerbation. Initially required cardizem drip, now weaned off, on sotalol, with conversion to NSR and TAC with lovenox. BPAP is also weaned off. hemodyanmically and respiratory herrera stable, toelrates PO nutrition and hydration. continue steroids taper, bronchodilators and abx. Once pneumonia/itis resolved may need additional workup for UIP, including but not limited to HRCT, PFT, rheum w/u as CT abdo/pelvis showes some honeycombing and some architectural distrotion in both low lobes. will touch base with PMD. Ok to downgrade to tele ccm time 40 min
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
--- NOTE | 2018-06-05 15:14 | PN ---
DATE: 06/05/2018 CARDIOLOGY FOLLOWUP SUBJECTIVE: The patient is awake, alert without shortness of breath. His cough has improved. PHYSICAL EXAMINATION: VITAL SIGNS: Blood pressure is 126/67, heart rates in the 60s, back to normal sinus rhythm. NECK: Negative JVD. LUNGS: Without rales. HEART: S1, S2. EXTREMITIES: Without change. LABORATORY DATA: Hemoglobin is 11.9. Chemistries, BUN and creatinine unremarkable. IMPRESSION: 1. Pneumonia. 2. Paroxysmal atrial fibrillation. 3. Upper respiratory infection. 4. Stable angina. 5. History of percutaneous transluminal coronary angioplasty. 6. Severe chronic obstructive pulmonary disease. 7. Hypercholesterolemia. Given these findings, we will continue the patient on heart monitor. We will discontinue his IV diltiazem. We will continue the patient on anticoagulation for now as well as continuing him on his sotalol. Chapin Wall MD
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
[2018-06-06] MEDS: MethylPREDNISolone 40 mg Vial IVP SCH ×3 (01:28→22:36)
--- NOTE | 2018-06-06 04:21 | CP.PCM.PN ---
<Felicia Smith - Last Filed: 06/06/18 16:57> Subjective - Date & Time of Evaluation Date of Evaluation: 06/06/18 Time of Evaluation: 07:15 - Subjective Subjective: Pgy3 Medicine progress note for Dr. Archibald Patient seen and examined at bedside. As per nursing no acute events overnight. Patient resting comfortably and in good spirits this AM. Reports he feels better and stronger; denied acute complaints of fever, chills, headache, dizziness, chest pain, palpitations, SOB, cough, abd pain, nausea, vomiting, bowel/bladder complaints, pain/swelling in his legs bilaterally. Patient is eating well and is eager to ambulate. Objective - Vital Signs/Intake and Output Vital Signs (last 24 hours): Temp Pulse Resp BP Pulse Ox 98 F 70 15 123/61 93 L 06/05/18 08:00 06/05/18 21:58 06/05/18 19:00 06/05/18 19:00 06/05/18 19:00 Intake and Output: 06/05/18 06/06/18 18:59 06:59 Intake Total 400 Output Total 750 Balance -350 - Medications Medications: Current Medications Acetaminophen (Tylenol 325mg Tab) 650 mg PO Q6H PRN PRN Reason: Headache Last Admin: 06/05/18 16:17 Dose: 650 mg Acetaminophen (Tylenol 325mg Tab) 650 mg PO Q6H PRN PRN Reason: Fever >100.4 F Aspirin (Ecotrin) 81 mg PO DAILY [facility] Last Admin: 06/05/18 10:20 Dose: 81 mg Atorvastatin Calcium (Lipitor) 40 mg PO HS [facility] Last Admin: 06/05/18 21:29 Dose: 40 mg Enoxaparin Sodium (Lovenox) 50 mg 1 mg/kg (50 mg) SC Q12 [facility]; Protocol Last Admin: 06/05/18 21:29 Dose: 50 mg diltiaZEM IVPB 100mg in NS (Cardizem 100mg In Ns) 100 mls @ 5 mls/hr IV .Q20H PRN; Protocol PRN Reason: TITRATE PER MD ORDER Last Admin: 06/04/18 16:21 Dose: 5 mg/hr, 5 mls/hr Doxycycline Hyclate 100 mg/ (Sodium Chloride) 100 mls @ 100 mls/hr IVPB Q12 [facility]; Protocol Last Admin: 06/05/18 21:28 Dose: 100 mls/hr Cefepime HCl (Maxipime 2gm) 2 gm in 100 mls @ 100 mls/hr IVPB Q8 [facility]; Protocol Stop: 06/09/18 14:01 Last Admin: 06/05/18 21:28 Dose: 100 mls/hr Vancomycin HCl (Vancomycin 1gm) 1 gm in 250 mls @ 167 mls/hr IVPB Q12H [facility]; Protocol Last Admin: 06/05/18 22:45 Dose: 167 mls/hr Methylprednisolone (Solu-Medrol) 40 mg IVP Q8H [facility] Last Admin: 06/06/18 01:28 Dose: 40 mg Oxycodone HCl (Oxycodone Immediate Release Tab) 30 mg PO Q6H PRN PRN Reason: Pain, moderate (4-7) Last Admin: 06/05/18 18:46 Dose: 30 mg Oxycodone HCl (Oxycontin Extended Release Tab) 30 mg PO Q12 [facility] Stop: 06/08/18 10:01 Last Admin: 06/05/18 21:29 Dose: 30 mg Pantoprazole Sodium (Protonix Ec Tab) 40 mg PO ACB [facility] Sotalol HCl (Betapace) 80 mg PO BID [facility] Last Admin: 06/05/18 18:38 Dose: 80 mg - Labs Labs: 06/05/18 05:35 06/05/18 05:35 PT 14.4 SECONDS (9.4-12.5) H 06/04/18 07:00 INR 1.27 06/04/18 07:00 APTT 33.1 Seconds (26.9-38.3) 06/04/18 07:00 - Additional Findings Additional findings: - Constitutional Appears: Non-toxic, No Acute Distress - Head Exam Head Exam: ATRAUMATIC, NORMAL INSPECTION, NORMOCEPHALIC - ENT Exam ENT Exam: Mucous Membranes Moist - Respiratory Exam Respiratory Exam: Rhonchi (L sided faint), Wheezes (faint), NORMAL BREATHING PATTERN. absent: Accessory Muscle Use, Rales, Respiratory Distress - Cardiovascular Exam Cardiovascular Exam: RRR, +S1, +S2 - GI/Abdominal Exam GI & Abdominal Exam: Soft, Normal Bowel Sounds. absent: Tenderness - Extremities Exam Extremities Exam: Normal Inspection. absent: Pedal Edema - Neurological Exam Neurological Exam: Alert, Awake, Oriented x3 - Psychiatric Exam Psychiatric exam: Normal Affect, Normal Mood - Skin Skin Exam: Intact, Normal Color, Warm Assessment and Plan - Assessment and Plan (Free Text) Assessment: 1. Severe Sepsis likely secondary to L sided HCAP- improving 2. New onset Afib 3. Hypoxemic respiratory failure on BiPAP- improved 4. COPD exacerbation 5. HTN 6. HLD 7. PAD 8. Chronic R humerus fracture 9. Chronic back pain 10. Chronic opioid use for chronic pain 11. Gait training Plan: Patien's vitals, blood work, and imaging reviewed in chart. Patient was afebrile overnight. Clinically improved however patient's WBC trended up to 20.5 from 16.3. CXR reviewed. Rapid flu and Urine legionella negative. Continue patient on Vanc, Cefepime, Doxy, and Tamiflu as per ID reccs. Patient's HR controlled on Sotalol at this time. Continue Lovenox for new onset Afib. Continue breathing treatments and IV steroids for COPD. Pulm reccs appreciated. Thyroid studies wnl. Continue home lipitor and ASA and Plavix in light of patient's history of CAD with 3 stents. Lipid panel and HgbA1c wnl. Echo reviewed. Patient's abdominal pain and diarrhea resolved and patient has good appetite. CT Abd/pelvis reviewed. Patient normotensive. IR consulted for patient's PAD. Arterial studies ordered- will f/u. X-ray lumbosacral spine was ordered which was unremarkable. Maintain euglycemia and normothermia. DVT/GI ppx in place. [facility] ordered. PT recommends TCU. Social work on board. Discussed with Dr. Cristela Smith PGY3 <Primitivo Archibald S - Last Filed: 06/06/18 18:33> Objective - Vital Signs/Intake and Output Vital Signs (last 24 hours): Temp Pulse Resp BP Pulse Ox 98.6 F 61 19 148/67 96 06/06/18 04:00 06/06/18 18:00 06/06/18 18:00 06/06/18 18:00 06/06/18 18:00 Intake and Output: 06/06/18 06/06/18 06:59 18:59 Intake Total 360 900 Output Total 475 800 Balance -115 100 - Medications Medications: Current Medications Acetaminophen (Tylenol 325mg Tab) 650 mg PO Q6H PRN PRN Reason: Headache Last Admin: 06/05/18 16:17 Dose: 650 mg Acetaminophen (Tylenol 325mg Tab) 650 mg PO Q6H PRN PRN Reason: Fever >100.4 F Aspirin (Ecotrin) 81 mg PO DAILY [facility] Last Admin: 06/06/18 09:59 Dose: 81 mg Atorvastatin Calcium (Lipitor) 40 mg PO HS [facility] Last Admin: 06/05/18 21:29 Dose: 40 mg Budesonide (Pulmicort Respules) 0.5 mg IH [id number] [facility] Last Admin: 06/06/18 08:37 Dose: 0.5 mg Enoxaparin Sodium (Lovenox) 40 mg SC DAILY [facility]; Protocol Last Admin: 06/06/18 09:58 Dose: 40 mg Doxycycline Hyclate 100 mg/ (Sodium Chloride) 100 mls @ 100 mls/hr IVPB Q12 [facility]; Protocol Last Admin: 06/06/18 10:06 Dose: 100 mls/hr Cefepime HCl (Maxipime 2gm) 2 gm in 100 mls @ 100 mls/hr IVPB Q8 [facility]; Protocol Stop: 06/09/18 14:01 Last Admin: 06/06/18 14:40 Dose: 100 mls/hr Vancomycin HCl (Vancomycin 1gm) 1 gm in 250 mls @ 167 mls/hr IVPB Q12H [facility]; Protocol Last Admin: 06/06/18 14:40 Dose: 167 mls/hr Levalbuterol HCl (Xopenex) 1.25 mg IH [id number] [facility] Last Admin: 06/06/18 13:02 Dose: Not Given Methylprednisolone (Solu-Medrol) 40 mg IVP Q12 [facility] Last Admin: 06/06/18 09:58 Dose: 40 mg Oxycodone HCl (Oxycodone Immediate Release Tab) 30 mg PO Q6H PRN PRN Reason: Pain, moderate (4-7) Last Admin: 06/05/18 18:46 Dose: 30 mg Oxycodone HCl (Oxycontin Extended Release Tab) 30 mg PO Q12 [facility] Stop: 06/08/18 10:01 Last Admin: 06/06/18 16:30 Dose: 30 mg Pantoprazole Sodium (Protonix Ec Tab) 40 mg PO ACB [facility] Last Admin: 06/06/18 07:43 Dose: 40 mg Sotalol HCl (Betapace) 80 mg PO BID [facility] Last Admin: 06/06/18 17:57 Dose: 80 mg - Labs Labs: 06/06/18 06:20 06/06/18 06:20 PT 14.4 SECONDS (9.4-12.5) H 06/04/18 07:00 INR 1.27 06/04/18 07:00 APTT 33.1 Seconds (26.9-38.3) 06/04/18 07:00 Assessment and Plan - Assessment and Plan (Free Text) Plan: Pt seen and examined by me. I have reviewed the note of the medical liaison and I agree with it. I have discussed the assessment and plan with the resident. I have reviewed the medications and the last labs.Pt with sepsis that is improv ing. He is on Vanco and Cefepime. He is also on Doxy and Tamiflu. He has community acquired pneumonia. He is on ASA and Plavix for his CAD and PAD. His chronic back pain is controlled with Oxycodone. He will be transferred out of the ICU and go to the medical floor. Will nee TCU for rehab prior to going home.
[2018-06-06] MEDS: Cefepime IV 2 gm in NS 2 GM/100 ML BAG IVPB SCH ×3 (05:05→22:38)
[2018-06-06 06:51] LABS: BASO # 0.01 K/mm3 (0.0-2.0); GRAN # 19.22 (1.4-6.5); GRAN % 93.8 % (50.0-68.0); HEMOGLOBIN 12.6 g/dL (14.0-18.0); LYMPH # 0.7 (1.2-3.4); LYMPH % 3.6 % (22.0-35.0); MEAN CELL VOLUME 89.4 fl (80.0-105.0); MEAN CORPUSCULAR HEMOGLOBIN 29.2 pg (25.0-35.0); MEAN CORPUSCULAR HGB CONC 32.6 g/dl (31.0-37.0); MEAN PLATELET VOLUME 11.4 fl (7.0-11.0); MONO # 0.5 (0.1-0.6); MONO % 2.6 % (1.0-6.0); RBC 4.32 10^6/uL (3.5-6.1); RED CELL DISTRIBUTION WIDTH 14.4 % (11.5-14.5); WHITE BLOOD COUNT 20.5 10^3/uL (4.5-11.0)
[2018-06-06 07:15] LABS: ALB/GLOB RATIO 1.1 (1.1-1.8); ALBUMIN 3.4 g/dL (3.0-4.8); ALT/SGPT 108 U/L (7-56); AST/SGOT 75 U/L (17-59); BLOOD UREA NITROGEN 48 mg/dL (7-21); CALCIUM 9.4 mg/dL (8.4-10.5); GFR NON-AFRICAN AMERICAN > 60
[2018-06-06] MEDS: Pantoprazole 40 mg EC Tab PO SCH (07:43)
[2018-06-06] MEDS: Levalbuterol 1.25 MG/3 ML Inhal Soln UD IH SCH ×3 (08:37→21:15)
[2018-06-06] MEDS: Budesonide 0.5 mg/2 ml Inhal Susp UD IH SCH ×2 (08:37→21:15)
--- NOTE | 2018-06-06 09:53 | CP.PCM.PN ---
<Bill Cruz - Last Filed: 06/06/18 13:04> Subjective - Date & Time of Evaluation Date of Evaluation: 06/06/18 Time of Evaluation: 07:00 - Subjective Subjective: ID Progress Note Patient seen and examined. States improvement in breathing status. No fevers overnight. Objective - Vital Signs/Intake and Output Vital Signs (last 24 hours): Temp Pulse Resp BP Pulse Ox 98.6 F 60 22 135/75 95 06/06/18 04:00 06/06/18 08:42 06/06/18 06:22 06/06/18 06:22 06/06/18 06:22 Intake and Output: 06/06/18 06/06/18 06:59 18:59 Intake Total 360 Output Total 475 Balance -115 - Medications Medications: Current Medications Acetaminophen (Tylenol 325mg Tab) 650 mg PO Q6H PRN PRN Reason: Headache Last Admin: 06/05/18 16:17 Dose: 650 mg Acetaminophen (Tylenol 325mg Tab) 650 mg PO Q6H PRN PRN Reason: Fever >100.4 F Aspirin (Ecotrin) 81 mg PO DAILY [facility] Last Admin: 06/05/18 10:20 Dose: 81 mg Atorvastatin Calcium (Lipitor) 40 mg PO HS [facility] Last Admin: 06/05/18 21:29 Dose: 40 mg Budesonide (Pulmicort Respules) 0.5 mg IH [id number] [facility] Last Admin: 06/06/18 08:37 Dose: 0.5 mg Enoxaparin Sodium (Lovenox) 40 mg SC DAILY [facility]; Protocol Doxycycline Hyclate 100 mg/ (Sodium Chloride) 100 mls @ 100 mls/hr IVPB Q12 [facility]; Protocol Last Admin: 06/05/18 21:28 Dose: 100 mls/hr Cefepime HCl (Maxipime 2gm) 2 gm in 100 mls @ 100 mls/hr IVPB Q8 [facility]; Protocol Stop: 06/09/18 14:01 Last Admin: 06/06/18 05:05 Dose: 100 mls/hr Vancomycin HCl (Vancomycin 1gm) 1 gm in 250 mls @ 167 mls/hr IVPB Q12H [facility]; Protocol Last Admin: 06/05/18 22:45 Dose: 167 mls/hr Levalbuterol HCl (Xopenex) 1.25 mg IH [id number] [facility] Last Admin: 06/06/18 08:37 Dose: 1.25 mg Methylprednisolone (Solu-Medrol) 40 mg IVP Q12 [facility] Oxycodone HCl (Oxycodone Immediate Release Tab) 30 mg PO Q6H PRN PRN Reason: Pain, moderate (4-7) Last Admin: 06/05/18 18:46 Dose: 30 mg Oxycodone HCl (Oxycontin Extended Release Tab) 30 mg PO Q12 [facility] Stop: 06/08/18 10:01 Last Admin: 06/05/18 21:29 Dose: 30 mg Pantoprazole Sodium (Protonix Ec Tab) 40 mg PO ACB [facility] Last Admin: 06/06/18 07:43 Dose: 40 mg Sotalol HCl (Betapace) 80 mg PO BID [facility] Last Admin: 06/05/18 18:38 Dose: 80 mg - Labs Labs: 06/06/18 06:20 06/06/18 06:20 PT 14.4 SECONDS (9.4-12.5) H 06/04/18 07:00 INR 1.27 06/04/18 07:00 APTT 33.1 Seconds (26.9-38.3) 06/04/18 07:00 - Constitutional Appears: Non-toxic, No Acute Distress - Head Exam Head Exam: ATRAUMATIC, NORMAL INSPECTION, NORMOCEPHALIC - ENT Exam ENT Exam: Mucous Membranes Moist - Respiratory Exam Respiratory Exam: Clear to Ausculation Bilateral, NORMAL BREATHING PATTERN - Cardiovascular Exam Cardiovascular Exam: RRR, +S1, +S2 - GI/Abdominal Exam GI & Abdominal Exam: Soft, Normal Bowel Sounds. absent: Tenderness - Extremities Exam Extremities Exam: Normal Inspection. absent: Pedal Edema - Neurological Exam Neurological Exam: Alert, Awake, Oriented x3 - Psychiatric Exam Psychiatric exam: Normal Affect, Normal Mood - Skin Skin Exam: Intact, Normal Color, Warm Assessment and Plan - Assessment and Plan (Free Text) Plan: Severe sepsis secondary to Left-sided HCAP Hx of CAD Hx of HTN Hx of COPD Hx of Asthma Hx of HLD Hx of PAD Hx of chronic right humerus fracture Plan Continue on Doxycyline and Cefepime for 7 days Complete full course of Tamiflu Nasal MRSA screen negative Stop Vancomycin Influenza and Legionella negative Strep pneumo negative Repeat Procal pending Urine and blood cultures negative at this time Anthony, PGY-3 <Jay Benitod Gustavo S - Last Filed: 06/06/18 14:53> Objective - Vital Signs/Intake and Output Vital Signs (last 24 hours): Temp Pulse Resp BP Pulse Ox 98.6 F 68 22 135/75 95 06/06/18 04:00 06/06/18 09:59 06/06/18 06:22 06/06/18 06:22 06/06/18 06:22 Intake and Output: 06/06/18 06/06/18 06:59 18:59 Intake Total 360 Output Total 475 Balance -115 - Medications Medications: Current Medications Acetaminophen (Tylenol 325mg Tab) 650 mg PO Q6H PRN PRN Reason: Headache Last Admin: 06/05/18 16:17 Dose: 650 mg Acetaminophen (Tylenol 325mg Tab) 650 mg PO Q6H PRN PRN Reason: Fever >100.4 F Aspirin (Ecotrin) 81 mg PO DAILY [facility] Last Admin: 06/06/18 09:59 Dose: 81 mg Atorvastatin Calcium (Lipitor) 40 mg PO HS [facility] Last Admin: 06/05/18 21:29 Dose: 40 mg Budesonide (Pulmicort Respules) 0.5 mg IH [id number] [facility] Last Admin: 06/06/18 08:37 Dose: 0.5 mg Enoxaparin Sodium (Lovenox) 40 mg SC DAILY [facility]; Protocol Last Admin: 06/06/18 09:58 Dose: 40 mg Doxycycline Hyclate 100 mg/ (Sodium Chloride) 100 mls @ 100 mls/hr IVPB Q12 [facility]; Protocol Last Admin: 06/06/18 10:06 Dose: 100 mls/hr Cefepime HCl (Maxipime 2gm) 2 gm in 100 mls @ 100 mls/hr IVPB Q8 [facility]; Protocol Stop: 06/09/18 14:01 Last Admin: 06/06/18 14:40 Dose: 100 mls/hr Vancomycin HCl (Vancomycin 1gm) 1 gm in 250 mls @ 167 mls/hr IVPB Q12H [facility]; Protocol Last Admin: 06/06/18 14:40 Dose: 167 mls/hr Levalbuterol HCl (Xopenex) 1.25 mg IH [id number] [facility] Last Admin: 06/06/18 13:02 Dose: Not Given Methylprednisolone (Solu-Medrol) 40 mg IVP Q12 [facility] Last Admin: 06/06/18 09:58 Dose: 40 mg Oxycodone HCl (Oxycodone Immediate Release Tab) 30 mg PO Q6H PRN PRN Reason: Pain, moderate (4-7) Last Admin: 06/05/18 18:46 Dose: 30 mg Oxycodone HCl (Oxycontin Extended Release Tab) 30 mg PO Q12 [facility] Stop: 06/08/18 10:01 Last Admin: 06/06/18 14:50 Dose: Not Given Pantoprazole Sodium (Protonix Ec Tab) 40 mg PO ACB [facility] Last Admin: 06/06/18 07:43 Dose: 40 mg Sotalol HCl (Betapace) 80 mg PO BID [facility] Last Admin: 06/06/18 09:59 Dose: 80 mg - Labs Labs: 06/06/18 06:20 06/06/18 06:20 PT 14.4 SECONDS (9.4-12.5) H 06/04/18 07:00 INR 1.27 06/04/18 07:00 APTT 33.1 Seconds (26.9-38.3) 06/04/18 07:00 Assessment and Plan - Assessment and Plan (Free Text) Plan: Infectious diseases Attending Physician Attestation Patient seen and examined, discussed with medical office receptionist. I have reviewed the patient's history of present illness, past medical, social, personal and family histories, pertinent physical exam findings, course so far in this hospital admission, pertinent laboratory and imaging results. I agree with the above findings, assessment and plan. In addition, continue Vancomycin, Cefepime and Doxycycline for patient with severe sepsis due to left sided HCAP. Follow up final culture results, nasal MRSA screen.
[2018-06-06] MEDS: Enoxaparin 40 mg Syringe SC SCH (09:58)
[2018-06-06] MEDS: oxyCODONE 10 mg ER Tab (oxyCONTIN) PO SCH ×4 (09:59→22:37)
--- NOTE | 2018-06-06 12:11 | CON ---
DATE: 06/06/2018 PULMONARY CONSULTATION REASON FOR PULMONARY CONSULTATION: Pneumonia. REFERRING PHYSICIAN: Dr. Primitivo Archibald. I did discuss the case with the ICU nurse at length. I have also discussed the case with the patient at length, and reviewed the chart at length. HISTORY OF PRESENT ILLNESS: The patient is a 77-year-old male, with past medical history significant for chronic obstructive pulmonary disease, asthma, coronary artery disease, status post multiple cardiac stents, peripheral arterial disease, hypertension, hyperlipidemia, who presented to [facility] - originally on 06/04/2018 - with a 2-day history of worsening shortness of breath at rest, dyspnea on exertion, cough, and minimal sputum production. There is no history of chest pain, coughing up of blood, or chest pain - brought on with deep respirations. There is no history of temperatures, chills, or infectious exposure. There is no history of night sweats, weight loss, or appetite change prior to the above events. No history of leg or calf pains. No history of syncope or diaphoresis. No history of recent travel or trauma. REVIEW OF SYSTEMS: No history of acute urinary symptoms. The patient did have some diarrhea at home. No vomiting. No abdominal pain. No new neurologic complaints. Rest of the review of systems is negative. ALLERGIES: NO KNOWN ALLERGIES. SOCIAL HISTORY: Positive for tobacco. Negative for alcohol. FAMILY HISTORY: No inheritable diseases. HOME MEDICATIONS: Include oxycodone, Toprol, Zestril, Plavix, Symbicort, Lipitor, aspirin, ProAir. PHYSICAL EXAMINATION: GENERAL: The patient appears comfortable this morning. He is not short of breath at rest. VITAL SIGNS: Last temperature recorded is 98, pulse 61, respirations 16/18, blood pressure 123/61. Oxygen saturation on nasal cannula is 93%. HEENT: Normocephalic, atraumatic. No JVD. CARDIOVASCULAR: Systolic ejection murmur at the lower left sternal border. No S3 gallop. LUNGS: Crackles noted at the left base. Mild bilateral rhonchi. No wheezing. EXTREMITIES: No clubbing, cyanosis, or edema. Calves are nontender to palpation. GI: Abdomen is soft, nontender, nondistended. Bowel sounds are positive. SKIN: No acute rash. NEUROLOGIC: Exam limited at the present time. PERTINENT LABORATORY DATA: Chest x-ray was done on 06/04/2018 and reviewed. There is a small patchy left lower lobe infiltrate noted. Abdominal and pelvic CAT scan was also done. On this CAT scan, there is an infiltrate noted at the left base - with air bronchograms - consistent with pneumonia. There are also some fibrotic changes noted at the right base. CBC: White count 16.3K, hemoglobin 11.9, hematocrit 35.1, and platelets of 200,000. IMPRESSION: 1. Left lower lobe pneumonia. 2. Chronic obstructive pulmonary disease, possibly advanced. 3. Asthma. 4. Coronary artery disease. 5. Mild anemia. PLAN: Again, I did discuss the case with the ICU nurse at length. I have also reviewed the chart at length, and discussed the case with the patient at length. The patient presented to [facility] - originally on 06/04/2018 - with a 2-day history of worsening pulmonary symptoms. I did review the abdominal CAT scan and chest x-ray - noted above. There is an infiltrate at the left base - with air bronchograms - consistent with pneumonia. There are also some fibrotic changes noted at the right base. I would continue with the antibiotic coverage as per Infectious Disease. Input by Dr. Benito is noted. The leukocytosis appears to be resolving. On physical exam, the patient is not in significant bronchospasm. I will look to decrease the intravenous steroids this morning. I will also add Xopenex nebulizer treatments (given his history of cardiac arrhythmias), and inhaled Pulmicort. I would certainly like to obtain a pulmonary function test - when the patient is out of his acute illness. Input by Cardiology (Dr. Wall) is also noted. Clinical status of the patient is significantly improved - compared to his initial presentation. However, given the above, the future status/prognosis for this patient does remain guarded. I will discuss the above with the entire ICU team the next few moments. I will also discuss the above with the attending physician later this morning. Thank you very much for this pulmonary consultation. Jatin Wilson MD [facility] # [id number] [place]
--- NOTE | 2018-06-06 13:30 | CP.PCM.APN ---
Subjective - Date & Time of Evaluation Date of Evaluation: 06/06/18 Time of Evaluation: 12:00 - Subjective Subjective: Pt. seen and examined at bedside. Pt. denied shortness of breath, denied chest pain, states dry cough. Review of Systems - Constitutional Constitutional: absent: As Per HPI, Anorexia, Chills, Daytime Sleepiness, Excessive Sweating, Fatigue, Fever, Frequent Falls, Headache, Increased Appetite, Lethargy, Malaise, Night Sweats, Snoring, Sleep Apnea, Weight Gain, Weight Loss, Weakness, Other - EENT Eyes: absent: As Per HPI, Blind Spots, Blurred Vision, Change in Vision, Decreased Night Vision, Diplopia, Discharge, Dry Eye, Exophthalmos, Floaters, Irritation, Itchy Eyes, Loss of Peripheral Vision, Pain, Photophobia, Requires Corrective Lenses, Sees Flashes, Spots in Vision, Tunnel Vision, Other Visual Disturbances, Loss of Vision, Other Nose/Mouth/Throat: absent: As Per HPI, Epistaxis, Nasal Congestion, Nasal Discharge, Nasal Obstruction, Nasal Trauma, Nose Pain, Post Nasal Drip, Sinus Pain, Sinus Pressure, Bleeding Gums, Change in Voice, Dental Pain, Dry Mouth, Dysphagia, Halitosis, Hoarsness, Lip Swelling, Mouth Lesions, Mouth Pain, Odynophagia, Sore Throat, Throat Swelling, Tongue Swelling, Facial Pain, Neck Pain, Neck Mass, Other - Cardiovascular Cardiovascular: absent: As Per HPI, Acrocyanosis, Chest Pain, Chest Pain at Rest, Chest Pain with Activity, Claudication, Diaphoresis, Dyspnea, Dyspnea on Exertion, Edema, Irregular Heart Rhythm, Pain Radiating to Arm/Neck/Jaw, Leg Edema, Leg Ulcers, Lightheadedness, Orthopnea, Palpitations, Paroxysmal Nocturnal Dyspnea, Pedal Edema, Radiating Pain, Rapid Heart Rate, Slow Heart Rate, Syncope, Other - Respiratory Respiratory: Cough - Gastrointestinal Gastrointestinal: absent: As Per HPI, Abdominal Pain, Belching, Bloating, Change in Bowel Habits, Change in Stool Character, Coffee Ground Emesis, Constipation, Cramping, Diarrhea, Dyspepsia, Dysphagia, Early Satiety, Excessive Flatus, Fecal Incontinence, Heartburn, Hematemesis, Hematochezia, Loose Stools, Melena, Nausea, Odynophagia, Temesmus, Vomiting, Other - Genitourinary Genitourinary: absent: As Per HPI, Change in Urinary Stream, Difficulty Urinating, Dysuria, Flank Pain, Hematuria, Pyuria, Nocturia, Urinary Incontinenc e, Urinary Frequency, Urinary Hesitance, Urinary Urgency, Voiding Freq/Small Amts, Freq UTI, Hx Renal/Bladder Calculi, Hx /Renal Surgery, Bladder Distension, Other - Musculoskeletal Musculoskeletal: absent: As Per HPI, Abnormal Gait, Arthralgias, Atrophy, Back Pain, Deformity, Joint Swelling, Limited Range of Motion, Loss of Height, Muscle Cramps, Muscle Weakness, Myalgias, Neck Pain, Numbness, Radiating Pain into Limb, Stiffness, Tingling, Other - Integumentary Integumentary: absent: As Per HPI, Acne, Alopecia, Bleeding Lesions, Change in Hair, Change in Nails, Change in Pigmentation, Changing Lesions, Dry Skin, Erythema, Furuncle, Hirsutism, Lesions, New Lesions, Non-Healing Lesions, Photosensitivity, Pruritus, Rash, Skin Pain, Skin Ulcer, Sores, Striae, Swelling, Unusual Bruising, Wounds, Jaundice, Other - Neurological Neurological: absent: As Per HPI, Abnormal Gait, Abnormal Hearing, Abnormal Movements, Abnormal Speech, Behavioral Changes, Burning Sensations, Confusion, Convulsions, Disequilibrium, Dizziness, Numbness, Focal Weakness, Frequent Falls, Headaches, Lack of Coordination, Loss of Vision, Memory Loss, Paresthesias, Radicular Pain, Restless Legs, Sensory Deficit, Syncope, Tingling, Tremor, Vertigo, Weakness, Other Visual Disturbances, Other - Psychiatric Psychiatric: absent: As Per HPI, Abnormal Sleep Pattern, Anhedonia, Anxiety, Auditory Hallucinations, Behavioral Changes, Change in Appetite, Change in Li fili, Confusion, Depression, Difficulty Concentrating, Hallucinations, Homicidal Ideation, Hopelessness, Irritability, Memory Loss, Mood Swings, Panic Attacks, Paranoia, Suicidal Ideation, Visual Hallucinations, Tactile Hallucinations, Other - Endocrine Endocrine: absent: As Per HPI, Change in Body Appearance, Change in Libido, Cold Intolorance, Deepening of Voice, Excessive Sweating, Fatigue, Flushing, Heat Intolorance, Increase in Ring/Shoe/Hat Size, Palpitations, Polydipsia, Polyphagia, Polyuria, Other Objective - Vital Signs/Intake and Output Vital Signs (last 24 hours): Temp Pulse Resp BP Pulse Ox 98.6 F 68 22 135/75 95 06/06/18 04:00 06/06/18 09:59 06/06/18 06:22 06/06/18 06:22 06/06/18 06:22 Intake and Output: 06/06/18 06/06/18 06:59 18:59 Intake Total 360 Output Total 475 Balance -115 - Medications Medications: Current Medications Acetaminophen (Tylenol 325mg Tab) 650 mg PO Q6H PRN PRN Reason: Headache Last Admin: 06/05/18 16:17 Dose: 650 mg Acetaminophen (Tylenol 325mg Tab) 650 mg PO Q6H PRN PRN Reason: Fever >100.4 F Aspirin (Ecotrin) 81 mg PO DAILY ORIN Last Admin: 06/06/18 09:59 Dose: 81 mg Atorvastatin Calcium (Lipitor) 40 mg PO HS ORIN Last Admin: 06/05/18 21:29 Dose: 40 mg Budesonide (Pulmicort Respules) 0.5 mg IH [id number] ORIN Last Admin: 06/06/18 08:37 Dose: 0.5 mg Enoxaparin Sodium (Lovenox) 40 mg SC DAILY ORIN; Protocol Last Admin: 06/06/18 09:58 Dose: 40 mg Doxycycline Hyclate 100 mg/ (Sodium Chloride) 100 mls @ 100 mls/hr IVPB Q12 ORIN; Protocol Last Admin: 06/06/18 10:06 Dose: 100 mls/hr Cefepime HCl (Maxipime 2gm) 2 gm in 100 mls @ 100 mls/hr IVPB Q8 ORIN; Protocol Stop: 06/09/18 14:01 Last Admin: 06/06/18 05:05 Dose: 100 mls/hr Vancomycin HCl (Vancomycin 1gm) 1 gm in 250 mls @ 167 mls/hr IVPB Q12H ORIN; Protocol Last Admin: 06/05/18 22:45 Dose: 167 mls/hr Levalbuterol HCl (Xopenex) 1.25 mg IH [id number] ORIN Last Admin: 06/06/18 13:02 Dose: Not Given Methylprednisolone (Solu-Medrol) 40 mg IVP Q12 ORIN Last Admin: 06/06/18 09:58 Dose: 40 mg Oxycodone HCl (Oxycodone Immediate Release Tab) 30 mg PO Q6H PRN PRN Reason: Pain, moderate (4-7) Last Admin: 06/05/18 18:46 Dose: 30 mg Oxycodone HCl (Oxycontin Extended Release Tab) 30 mg PO Q12 [facility] Stop: 06/08/18 10:01 Last Admin: 06/05/18 21:29 Dose: 30 mg Pantoprazole Sodium (Protonix Ec Tab) 40 mg PO ACB ORIN Last Admin: 06/06/18 07:43 Dose: 40 mg Sotalol HCl (Betapace) 80 mg PO BID [facility] Last Admin: 06/06/18 09:59 Dose: 80 mg - Labs Labs: 06/06/18 06:20 06/06/18 06:20 PT 14.4 SECONDS (9.4-12.5) H 06/04/18 07:00 INR 1.27 06/04/18 07:00 APTT 33.1 Seconds (26.9-38.3) 06/04/18 07:00 Assessment and Plan - Assessment and Plan (Free Text) Assessment: ITS Impressions Chest X-Ray 06/04/18 07:04 IMPRESSION: Interval patchy coalescent left basal infiltrate . Background chronic COPD appearance and background chronic interstitial lung disease appearance Other findings as above. Abdomen/Pelvis CT 06/04/18 09:11 IMPRESSION: No bowel obstruction. The exam is limited in terms of evaluating for colitis without IV contrast. No gross prominent diverticulosis with the concomitant gross diverticulitis appreciated. Moderate stool retention. Redundant rectosigmoid colon noted Left lower lobe posterior/dependent consolidation as referenced above. This is an interval change with the prior exam. Concomitant more hyperdense left pleural effusion not excluded. Interval minimal left pericardial effusion. Follow-up recommended. Atherosclerotic vascular calcifications present. 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 This is believed similar in caliber although previously referenced different measurements were provided. 77 yo male PMHx CAD s/p 3 stents placed 2014, COPD, asthma, HTN, HLD, PAD, chronic R humerus fracture, chronic back pain presents with complaints of productive cough and shortness of breath for the past few days. Patient reports he completed a course of prescribed Z-Pack however his symptoms continued. Patient also complained of cramping abdominal pain and diarrhea for the past 3 days, admitted with sepsis, r/t pneumonia, undergoing further workup. 1. Severe Sepsis lactate 4, improved to 1.8 Wbc increased to 20.5, continue IV antibiotics as per I.D 2. LLL pnuemonia -Cont, IV antibx as per I.D. Final blood cx, sputum cx results are pending,cont.tapering of Solumedrol, repeat procal pending 3. RApid Atrial fibrillation- Now with contolled vent rate continue w. Sotalol as per cardiology, monitor HR. 4. Flu like symptoms being treated with Tamiflu, day 2. PT recommending TCU. awaiting tcu approval for poss DC tommorow to TCU.
--- NOTE | 2018-06-06 13:50 | PN ---
DATE: 06/06/2018 SUBJECTIVE: The patient ambulated with physical therapy without issues, without shortness of breath, without chest pain. PHYSICAL EXAMINATION: VITAL SIGNS: Blood pressure 135/75 and heart rates in the 60s, normal sinus rhythm. NECK: Negative JVD. LUNGS: Without rales. HEART: S1 and S2. EXTREMITIES: Without edema. LABORATORY DATA: Hemoglobin is 12.6, white count is 20.5. BUN and creatinine are 48 and 1.8. IMPRESSION: 1. Short run of atrial fibrillation. 2. Pneumonia. 3. Upper respiratory infection. 4. Stable angina. 5. Chronic obstructive pulmonary disease. 6. Hypercholesterolemia. PLAN: Given these findings, the patient remains in normal sinus rhythm, on sotalol. His heart rhythm has been stable, even with ambulation. We will discontinue telemetry today. We will continue sotalol and we will discontinue his anticoagulation. Chapin Wall MD
--- NOTE | 2018-06-06 14:09 | RAD ---
Date of service: 06/06/2018 PROCEDURE: Radiographs of the Lumbar Spine. HISTORY: LBP COMPARISON: No prior. FINDINGS: BONES: Normal alignment. No listhesis. No fracture. DISC SPACES: Unremarkable. OTHER FINDINGS: None. IMPRESSION: Unremarkable radiographs of the lumbar spine.
[2018-06-06] MEDS: Vancomycin 1gm in NS 250ml 1 GM/250 ML BAG IVPB SCH (14:40)
[2018-06-07] MEDS: Vancomycin 1gm in NS 250ml 1 GM/250 ML BAG IVPB SCH ×2 (01:34→12:35)
[2018-06-07] MEDS: Levalbuterol 1.25 MG/3 ML Inhal Soln UD IH SCH ×3 (02:44→07:35)
[2018-06-07] MEDS: Cefepime IV 2 gm in NS 2 GM/100 ML BAG IVPB SCH (06:19)
[2018-06-07] MEDS: Budesonide 0.5 mg/2 ml Inhal Susp UD IH SCH (07:35)
[2018-06-07 08:01] VITALS: PULSE 50; RESP 20; TEMP 97.9; O2SAT 97
[2018-06-07 08:01] LABS: BASO # 0.01 K/mm3 (0.0-2.0); BASO % 0.1 % (0.0-3.0); LYMPH # 0.9 (1.2-3.4); LYMPH % 7.6 % (22.0-35.0); MEAN CELL VOLUME 88.2 fl (80.0-105.0); MEAN CORPUSCULAR HGB CONC 32.9 g/dl (31.0-37.0); MEAN PLATELET VOLUME 11.4 fl (7.0-11.0); MONO # 0.2 (0.1-0.6); MONO % 1.9 % (1.0-6.0); PLATELET COUNT 190 10^3/uL (120.0-450.0); RBC 4.14 10^6/uL (3.5-6.1); RED CELL DISTRIBUTION WIDTH 14.3 % (11.5-14.5); WHITE BLOOD COUNT 11.8 10^3/uL (4.5-11.0)
--- NOTE | 2018-06-07 08:35 | CP.PCM.DIS ---
<Felicia Smith - Last Filed: 06/07/18 09:58> Provider - Provider Date of Admission: 06/04/18 09:07 Attending physician: Primitivo Archibald MD Primary care physician: Dr. Archibald Consults: 06/04/18 08:27 Consult [Physician Consult] Stat Comment: Consulting Provider: Chapin Wall Consulting Physician: Chapin Wall Reason for Consult: Rapid Afib, Severe Sepsis Additional Comments: 06/04/18 08:28 Infectious Disease Consult Stat Comment: Consulting Provider: Felipe Dueñas Consulting Physician: Felipe Dueñas Reason for Consult: Severe Sepsis, PNA 06/04/18 19:10 Social Work Referral Routine Comment: DSICHARGE PLANNING,NEEDS P.T,DECONDITIONING Physician Instructions: Reason For Exam: EVALUATION 06/05/18 09:04 Consult [Physician Consult] Routine Comment: Consulting Provider: Chapin Rojas Consulting Physician: Chapin Rojas Reason for Consult: PAD 06/05/18 15:17 Pulmonology Consult Routine Comment: Consulting Provider: Jatin Wilson Consulting Physician: Jatin Wilson Reason for Consult: UIP pattern on thoracic cuts of CT abdo/pelvis 06/06/18 09:09 TCU [Evaluation for TRCU] Routine Comment: Physician Instructions: thank you Reason For Exam: please evaluate patient for TCU Time Spent in preparation of Discharge (in minutes): 45 Hospital Course - Lab Results Lab Results: Micro Results 06/04/18 07:20 Blood-Venous Blood Culture - Preliminary NO GROWTH AFTER 3 DAYS 06/04/18 07:04 Blood-Venous Blood Culture - Preliminary NO GROWTH AFTER 3 DAYS 06/04/18 11:45 Naris MRSA Culture (Admit) - Final MRSA NOT DETECTED 06/04/18 14:40 Urine Random Urine Culture - Final No Growth (<1,000 CFU/ML) Most Recent Lab Values WBC 11.8 10^3/uL (4.5-11.0) H D 06/07/18 07:30 RBC 4.14 10^6/uL (3.5-6.1) 06/07/18 07:30 Hgb 12.0 g/dL (14.0-18.0) L 06/07/18 07:30 Hct 36.5 % (42.0-52.0) L 06/07/18 07:30 MCV 88.2 fl (80.0-105.0) 06/07/18 07:30 MCH 29.0 pg (25.0-35.0) 06/07/18 07:30 MCHC 32.9 g/dl (31.0-37.0) 06/07/18 07:30 RDW 14.3 % (11.5-14.5) 06/07/18 07:30 Plt Count 190 10^3/uL (120.0-450.0) 06/07/18 07:30 MPV 11.4 fl (7.0-11.0) H 06/07/18 07:30 Gran % 93.8 % (50.0-68.0) H 06/06/18 06:20 Neut % (Auto) 90.4 % (50.0-68.0) H 06/07/18 07:30 Lymph % (Auto) 7.6 % (22.0-35.0) L 06/07/18 07:30 Stewart % (Auto) 1.9 % (1.0-6.0) 06/07/18 07:30 Eos % (Auto) 0.0 % (1.5-5.0) L 06/07/18 07:30 Baso % (Auto) 0.1 % (0.0-3.0) 06/07/18 07:30 Gran # 19.22 (1.4-6.5) H 06/06/18 06:20 Lymph # (Auto) 0.9 (1.2-3.4) L 06/07/18 07:30 Stewart # (Auto) 0.2 (0.1-0.6) 06/07/18 07:30 Eos # (Auto) 0.0 (0.0-0.7) 06/07/18 07:30 Baso # (Auto) 0.01 K/mm3 (0.0-2.0) 06/07/18 07:30 Absolute Neuts (auto) 10.64 (1.4-6.5) H 06/07/18 07:30 Neutrophils % (Manual) 86 % (50.0-70.0) H 06/04/18 07:00 Band Neutrophils % 3 % (0-2) H 06/04/18 07:00 Lymphocytes % (Manual) 5 % (22.0-35.0) L 06/04/18 07:00 Monocytes % (Manual) 6 % (1.0-6.0) 06/04/18 07:00 PT 14.4 SECONDS (9.4-12.5) H 06/04/18 07:00 INR 1.27 06/04/18 07:00 APTT 33.1 Seconds (26.9-38.3) 06/04/18 07:00 pCO2 32 mm/Hg (35-45) L 06/04/18 09:00 pO2 61 mm/Hg (30-55) H 06/04/18 16:10 HCO3 19.4 mmol/L (21-28) L 06/04/18 09:00 ABG pH 7.39 (7.35-7.45) 06/04/18 09:00 ABG Total CO2 20.4 mmol.L (22-28) L 06/04/18 09:00 ABG O2 Saturation 93.7 % (95-98) L 06/04/18 09:00 ABG Base Excess -4.6 mmol/L (-2.0-3.0) L 06/04/18 09:00 ABG Potassium 3.1 mmol/L (3.6-5.2) L 06/04/18 09:00 VBG pH 7.43 (7.32-7.43) 06/04/18 16:10 VBG pCO2 34.0 (40-60) L 06/04/18 16:10 VBG HCO3 22.6 mmol/l (21-28) 06/04/18 16:10 VBG Total CO2 23.6 mmol.L (22-28) 06/04/18 16:10 VBG O2 Sat (Calc) 95.3 % (40-65) H 06/04/18 16:10 VBG Base Excess -1.1 mmol/L (0.0-2.0) L 06/04/18 16:10 VBG Potassium 3.2 mmol/L (3.6-5.2) L 06/04/18 16:10 Sodium 134.0 mmol/L (132-148) 06/04/18 16:10 Chloride 101.0 mmol/L (98-107) 06/04/18 16:10 Glucose 314 mg/dl (75-110) H 06/04/18 16:10 Lactate 1.8 mmol/L (0.7-2.1) 06/04/18 16:10 FiO2 21.0 % 06/04/18 16:10 Crit Value Called To Yessica serrano 06/04/18 12:30 Crit Value Called By 06/04/18 12:30 Blood Gas Notified Time 1240 06/04/18 12:30 Sodium 139 mmol/L (132-148) 06/06/18 06:20 Potassium 5.4 mmol/L (3.6-5.0) H 06/06/18 06:20 Chloride 107 mmol/L (98-107) 06/06/18 06:20 Carbon Dioxide 24 mmol/L (21-33) 06/06/18 06:20 Anion Gap 13 (10-20) 06/06/18 06:20 BUN 48 mg/dL (7-21) H 06/06/18 06:20 Creatinine 1.1 mg/dl (0.8-1.5) 06/06/18 06:20 Est GFR ( Amer) > 60 06/06/18 06:20 Est GFR (Non-Af Amer) > 60 06/06/18 06:20 Random Glucose 123 mg/dL (70-110) H 06/06/18 06:20 Hemoglobin A1c 6.0 % (4.2-6.5) 06/05/18 05:35 Calcium 9.4 mg/dL (8.4-10.5) 06/06/18 06:20 Phosphorus 4.1 mg/dL (2.5-4.5) 06/06/18 06:20 Magnesium 2.1 mg/dL (1.7-2.2) 06/06/18 06:20 Total Bilirubin 0.4 mg/dL (0.2-1.3) 06/06/18 06:20 AST 75 U/L (17-59) H D 06/06/18 06:20 ALT 108 U/L (7-56) H 06/06/18 06:20 Alkaline Phosphatase 63 U/L (38-126) 06/06/18 06:20 Lactate Dehydrogenase 534 U/L (333-699) 06/04/18 07:00 Total Creatine Kinase 114 U/L (35-230) 06/04/18 07:00 Troponin I 0.03 ng/mL D 06/04/18 12:30 NT-Pro-B Natriuret Pep 1890 pg/mL (0-450) H 06/04/18 07:00 Total Protein 6.6 g/dL (5.8-8.3) 06/06/18 06:20 Albumin 3.4 g/dL (3.0-4.8) 06/06/18 06:20 Globulin 3.1 gm/dL 06/06/18 06:20 Albumin/Globulin Ratio 1.1 (1.1-1.8) 06/06/18 06:20 Triglycerides 115 mg/dL (35-160) 06/05/18 05:35 Cholesterol 93 mg/dL (130-200) L 06/05/18 05:35 LDL Cholesterol Direct 56 mg/dL (0-129) 06/05/18 05:35 HDL Cholesterol 19 mg/dL (29-60) L 06/05/18 05:35 Procalcitonin 3.22 NG/ML (0.19-0.49) H 06/06/18 15:58 Free T4 1.78 ng/dL (0.78-2.19) 06/05/18 05:35 TSH 3rd Generation 0.16 mIU/mL (0.46-4.68) L 06/05/18 05:35 Arterial Blood Potassium 3.1 mmol/L (3.6-5.2) L 06/04/18 09:00 Venous Blood Potassium 3.2 mmol/L (3.6-5.2) L 06/04/18 16:10 Urine Color Yellow (YELLOW) 06/04/18 09:35 Urine Appearance Clear (CLEAR) 06/04/18 09:35 Urine pH 6.0 (4.7-8.0) 06/04/18 09:35 Ur Specific [place] 1.020 (1.005-1.035) 06/04/18 09:35 Urine Protein Trace mg/dL (<30 mg/dL) H 06/04/18 09:35 Urine Glucose (UA) Negative mg/dL (NEGATIVE) 06/04/18 09:35 Urine Ketones Trace mg/dL (NEGATIVE) H 06/04/18 09:35 Urine Blood Small (NEGATIVE) H 06/04/18 09:35 Urine Nitrate Negative (NEGATIVE) 06/04/18 09:35 Urine Bilirubin Negative (NEGATIVE) 06/04/18 09:35 Urine Urobilinogen 0.2 E.U./dL (<1 E.U./dL) 06/04/18 09:35 Ur Leukocyte Esterase Negative [place]/uL (NEGATIVE) 06/04/18 09:35 Urine RBC 2 - 5 /hpf (0-2) H 06/04/18 09:35 Urine WBC 0 - 2 /hpf (0-6) 06/04/18 09:35 Ur Epithelial Cells None /hpf (0-5) 06/04/18 09:35 Amorphous Sediment Few /hpf (NONE) 06/04/18 09:35 Urine Bacteria Mod /hpf (NONE) 06/04/18 09:35 Coarse Granular Casts Trace /hpf (NONE) 06/04/18 09:35 Digoxin 1.0 ng/mL (0.8-2.0) 06/04/18 12:30 Influenza Typ A,B (EIA) Negative for flu a/b (NEGATIVE) 06/04/18 07:25 Ur L.pneumophila Ag Negative (NEGATIVE) 06/04/18 09:35 Ur Strep pneumoniae Ag Not detected (Not Detected) 06/04/18 09:35 - Hospital Course Hospital Course: Upon Admission As per HPI: "77 yo male PMHx CAD s/p 3 stents placed 2014, COPD, asthma, HTN, HLD, PAD, chronic R humerus fracture, chronic back pain presents with complaints of productive cough and shortness of breath for the past few days. Patient reports he completed a course of prescribed Z-Pack however his symptoms continued. Patient also complained of cramping abdominal pain and diarrhea for the past 3 days with no associated nausea/vomiting. Patient denied any sick contacts/recent travel. He reported a mild subjective fever but denied any chills. He also complained of palpitations and a racing heart but denied any chest pain. Patient's dyspnea had some associated wheezing and was worse with exertion. He also complained of worsening productive cough with yellow sputum; denied any green sputum/hemoptysis. Patient complained that he is only able to ambulate ~2blocks before experiencing a cramping pain in his bilateral lower extremities and was supposed to see Dr. Rojas for this." Hospital Course Patient admitted to MICU for rapid Afib and severe sepsis. Patient was given 5mg metoprolol and 20mg cardizem and started on cardizem gtt. Patient's Bloodwork including VBG revealed an elevated white count and lactate. Code Sepsis was called in the ER and as per protocol patient had cultures ordered and was given broad spectrum Abx and fluids. CXR revealed interval patchy coalescent at L basal infiltrate with background chronic COPD and interstitial lung disease changes. ID consulted. Patient was negative for rapid flu and Legionella. Procalcitonin elevated at 8.57. Patient started on Vanc, Cefepime, Doxy, and Tamiflu. Cardiology consulted for rapid Afib. Troponin negative x 2. Overnight patient's cardizem gtt placed on hold and HR remained wnl. Continued on sotalol at this time and therapeutic Lovenox for new onset Afib. Thyroid studies wnl. Continue home lipitor and ASA and Plavix in light of patient's history of CAD with 3 stents. Lipid panel and HgbA1c wnl. Patient continued on IV steroids and breathing treatments. Patient's abdominal pain and diarrhea resolved and patient has good appetite. CT Abd/pelvis reviewed. IR consulted for patient's PAD. Arterial studies ordered to f/u. Restarted patient's home medications for chronic pain. Lumbosacral spine was ordered which was unremarkable. Patient worked with PT who recommended acute rehab. Discharge Plan Patient discharged to TCU for continued management and to work with Physical therapy for deconditioning. Patient aware and agreed with plan. Val was attempted to be contacted however number rang through. Meds were reconciled and we will continue to monitor and manage patient in TCU. Discharge Exam - Additional Findings Additional findings: - Constitutional Appears: Non-toxic, No Acute Distress - Head Exam Head Exam: ATRAUMATIC, NORMAL INSPECTION, NORMOCEPHALIC - ENT Exam ENT Exam: Mucous Membranes Moist - Respiratory Exam Respiratory Exam: Rhonchi (L sided faint), Wheezes (faint), NORMAL BREATHING PATTERN. absent: Accessory Muscle Use, Rales, Respiratory Distress - Cardiovascular Exam Cardiovascular Exam: RRR, +S1, +S2 - GI/Abdominal Exam GI & Abdominal Exam: Soft, Normal Bowel Sounds. absent: Tenderness - Extremities Exam Extremities Exam: Normal Inspection. absent: Pedal Edema - Neurological Exam Neurological Exam: Alert, Awake, Oriented x3 - Psychiatric Exam Psychiatric exam: Normal Affect, Normal Mood - Skin Skin Exam: Intact, Normal Color, Warm Discharge Plan - Follow Up Plan Condition: FAIR Disposition: TRANSF TO SNF Instructions: Chronic Obstructive Pulmonary Disease (COPD), Including Emphysema, Heart Failure, Adult, Sepsis in Adults, Atrial Fibrillation, Preventing Falls in the Older Adult, Community-Acquired Pneumonia in Adults Additional Instructions: DR ARCHIBALD WILL FOLLOW PATIENT OVER ON TRCU <Primitivo Archibald - Last Filed: 06/07/18 20:12> Provider - Provider Date of Admission: 06/04/18 09:07 Attending physician: Primitivo Archibald MD Consults: 06/04/18 08:27 Consult [Physician Consult] Stat Comment: Consulting Provider: Chapin Wall Consulting Physician: Chapin Wall Reason for Consult: Rapid Afib, Severe Sepsis Additional Comments: 06/04/18 08:28 Infectious Disease Consult Stat Comment: Consulting Provider: Felipe Dueñas Consulting Physician: Felipe Dueñas Reason for Consult: Severe Sepsis, PNA 06/04/18 19:10 Social Work Referral Routine Comment: DSICHARGE PLANNING,NEEDS P.T,DECONDITIONING Physician Instructions: Reason For Exam: EVALUATION 06/05/18 09:04 Consult [Physician Consult] Routine Comment: Consulting Provider: Chapin Rojas Consulting Physician: Chapin Rojas Reason for Consult: PAD 06/05/18 15:17 Pulmonology Consult Routine Comment: Consulting Provider: Jatin Wilson Consulting Physician: Jatin Wilson Reason for Consult: UIP pattern on thoracic cuts of CT abdo/pelvis 06/06/18 09:09 TCU [Evaluation for TRCU] Routine Comment: Physician Instructions: thank you Reason For Exam: please evaluate patient for TCU Hospital Course - Lab Results Lab Results: Micro Results 06/04/18 07:20 Blood-Venous Blood Culture - Preliminary NO GROWTH AFTER 3 DAYS 06/04/18 07:04 Blood-Venous Blood Culture - Preliminary NO GROWTH AFTER 3 DAYS 06/04/18 11:45 Naris MRSA Culture (Admit) - Final MRSA NOT DETECTED 06/04/18 14:40 Urine Random Urine Culture - Final No Growth (<1,000 CFU/ML) Most Recent Lab Values WBC 11.8 10^3/uL (4.5-11.0) H D 06/07/18 07:30 RBC 4.14 10^6/uL (3.5-6.1) 06/07/18 07:30 Hgb 12.0 g/dL (14.0-18.0) L 06/07/18 07:30 Hct 36.5 % (42.0-52.0) L 06/07/18 07:30 MCV 88.2 fl (80.0-105.0) 06/07/18 07:30 MCH 29.0 pg (25.0-35.0) 06/07/18 07:30 MCHC 32.9 g/dl (31.0-37.0) 06/07/18 07:30 RDW 14.3 % (11.5-14.5) 06/07/18 07:30 Plt Count 190 10^3/uL (120.0-450.0) 06/07/18 07:30 MPV 11.4 fl (7.0-11.0) H 06/07/18 07:30 Gran % 93.8 % (50.0-68.0) H 06/06/18 06:20 Neut % (Auto) 90.4 % (50.0-68.0) H 06/07/18 07:30 Lymph % (Auto) 7.6 % (22.0-35.0) L 06/07/18 07:30 Stewart % (Auto) 1.9 % (1.0-6.0) 06/07/18 07:30 Eos % (Auto) 0.0 % (1.5-5.0) L 06/07/18 07:30 Baso % (Auto) 0.1 % (0.0-3.0) 06/07/18 07:30 Gran # 19.22 (1.4-6.5) H 06/06/18 06:20 Lymph # (Auto) 0.9 (1.2-3.4) L 06/07/18 07:30 Stewart # (Auto) 0.2 (0.1-0.6) 06/07/18 07:30 Eos # (Auto) 0.0 (0.0-0.7) 06/07/18 07:30 Baso # (Auto) 0.01 K/mm3 (0.0-2.0) 06/07/18 07:30 Absolute Neuts (auto) 10.64 (1.4-6.5) H 06/07/18 07:30 Neutrophils % (Manual) 87 % (50.0-70.0) H 06/07/18 07:30 Band Neutrophils % 3 % (0-2) H 06/04/18 07:00 Lymphocytes % (Manual) 6 % (22.0-35.0) L 06/07/18 07:30 Atypical Lymphs % 1 % (0.0-0.0) H 06/07/18 07:30 Monocytes % (Manual) 6 % (1.0-6.0) 06/07/18 07:30 PT 14.4 SECONDS (9.4-12.5) H 06/04/18 07:00 INR 1.27 06/04/18 07:00 APTT 33.1 Seconds (26.9-38.3) 06/04/18 07:00 pCO2 32 mm/Hg (35-45) L 06/04/18 09:00 pO2 61 mm/Hg (30-55) H 06/04/18 16:10 HCO3 19.4 mmol/L (21-28) L 06/04/18 09:00 ABG pH 7.39 (7.35-7.45) 06/04/18 09:00 ABG Total CO2 20.4 mmol.L (22-28) L 06/04/18 09:00 ABG O2 Saturation 93.7 % (95-98) L 06/04/18 09:00 ABG Base Excess -4.6 mmol/L (-2.0-3.0) L 06/04/18 09:00 ABG Potassium 3.1 mmol/L (3.6-5.2) L 06/04/18 09:00 VBG pH 7.43 (7.32-7.43) 06/04/18 16:10 VBG pCO2 34.0 (40-60) L 06/04/18 16:10 VBG HCO3 22.6 mmol/l (21-28) 06/04/18 16:10 VBG Total CO2 23.6 mmol.L (22-28) 06/04/18 16:10 VBG O2 Sat (Calc) 95.3 % (40-65) H 06/04/18 16:10 VBG Base Excess -1.1 mmol/L (0.0-2.0) L 06/04/18 16:10 VBG Potassium 3.2 mmol/L (3.6-5.2) L 06/04/18 16:10 Sodium 134.0 mmol/L (132-148) 06/04/18 16:10 Chloride 101.0 mmol/L (98-107) 06/04/18 16:10 Glucose 314 mg/dl (75-110) H 06/04/18 16:10 Lactate 1.8 mmol/L (0.7-2.1) 06/04/18 16:10 FiO2 21.0 % 06/04/18 16:10 Crit Value Called To Yessica serrano 06/04/18 12:30 Crit Value Called By 06/04/18 12:30 Blood Gas Notified Time 1240 06/04/18 12:30 Sodium 139 mmol/L (132-148) 06/06/18 06:20 Potassium 5.4 mmol/L (3.6-5.0) H 06/06/18 06:20 Chloride 107 mmol/L (98-107) 06/06/18 06:20 Carbon Dioxide 24 mmol/L (21-33) 06/06/18 06:20 Anion Gap 13 (10-20) 06/06/18 06:20 BUN 48 mg/dL (7-21) H 06/06/18 06:20 Creatinine 1.1 mg/dl (0.8-1.5) 06/06/18 06:20 Est GFR ( Amer) > 60 06/06/18 06:20 Est GFR (Non-Af Amer) > 60 06/06/18 06:20 Random Glucose 123 mg/dL (70-110) H 06/06/18 06:20 Hemoglobin A1c 6.0 % (4.2-6.5) 06/05/18 05:35 Calcium 9.4 mg/dL (8.4-10.5) 06/06/18 06:20 Phosphorus 4.1 mg/dL (2.5-4.5) 06/06/18 06:20 Magnesium 2.1 mg/dL (1.7-2.2) 06/06/18 06:20 Total Bilirubin 0.4 mg/dL (0.2-1.3) 06/06/18 06:20 AST 75 U/L (17-59) H D 06/06/18 06:20 ALT 108 U/L (7-56) H 06/06/18 06:20 Alkaline Phosphatase 63 U/L (38-126) 06/06/18 06:20 Lactate Dehydrogenase 534 U/L (333-699) 06/04/18 07:00 Total Creatine Kinase 114 U/L (35-230) 06/04/18 07:00 Troponin I 0.03 ng/mL D 06/04/18 12:30 NT-Pro-B Natriuret Pep 1890 pg/mL (0-450) H 06/04/18 07:00 Total Protein 6.6 g/dL (5.8-8.3) 06/06/18 06:20 Albumin 3.4 g/dL (3.0-4.8) 06/06/18 06:20 Globulin 3.1 gm/dL 06/06/18 06:20 Albumin/Globulin Ratio 1.1 (1.1-1.8) 06/06/18 06:20 Triglycerides 115 mg/dL (35-160) 06/05/18 05:35 Cholesterol 93 mg/dL (130-200) L 06/05/18 05:35 LDL Cholesterol Direct 56 mg/dL (0-129) 06/05/18 05:35 HDL Cholesterol 19 mg/dL (29-60) L 06/05/18 05:35 Procalcitonin 3.22 NG/ML (0.19-0.49) H 06/06/18 15:58 Free T4 1.78 ng/dL (0.78-2.19) 06/05/18 05:35 TSH 3rd Generation 0.16 mIU/mL (0.46-4.68) L 06/05/18 05:35 Arterial Blood Potassium 3.1 mmol/L (3.6-5.2) L 06/04/18 09:00 Venous Blood Potassium 3.2 mmol/L (3.6-5.2) L 06/04/18 16:10 Urine Color Yellow (YELLOW) 06/04/18 09:35 Urine Appearance Clear (CLEAR) 06/04/18 09:35 Urine pH 6.0 (4.7-8.0) 06/04/18 09:35 Ur Specific [place] 1.020 (1.005-1.035) 06/04/18 09:35 Urine Protein Trace mg/dL (<30 mg/dL) H 06/04/18 09:35 Urine Glucose (UA) Negative mg/dL (NEGATIVE) 06/04/18 09:35 Urine Ketones Trace mg/dL (NEGATIVE) H 06/04/18 09:35 Urine Blood Small (NEGATIVE) H 06/04/18 09:35 Urine Nitrate Negative (NEGATIVE) 06/04/18 09:35 Urine Bilirubin Negative (NEGATIVE) 06/04/18 09:35 Urine Urobilinogen 0.2 E.U./dL (<1 E.U./dL) 06/04/18 09:35 Ur Leukocyte Esterase Negative [place]/uL (NEGATIVE) 06/04/18 09:35 Urine RBC 2 - 5 /hpf (0-2) H 06/04/18 09:35 Urine WBC 0 - 2 /hpf (0-6) 06/04/18 09:35 Ur Epithelial Cells None /hpf (0-5) 06/04/18 09:35 Amorphous Sediment Few /hpf (NONE) 06/04/18 09:35 Urine Bacteria Mod /hpf (NONE) 06/04/18 09:35 Coarse Granular Casts Trace /hpf (NONE) 06/04/18 09:35 Digoxin 1.0 ng/mL (0.8-2.0) 06/04/18 12:30 Influenza Typ A,B (EIA) Negative for flu a/b (NEGATIVE) 06/04/18 07:25 Influenza Type A Ab 1:64 titer (<1:8) H 06/04/18 14:00 Influenza Type B Ab 1:16 titer (<1:8) H 06/04/18 14:00 Ur L.pneumophila Ag Negative (NEGATIVE) 06/04/18 09:35 Ur Strep pneumoniae Ag Not detected (Not Detected) 06/04/18 09:35 - Hospital Course Hospital Course: Pt seen and examined by me. I have reviewed the note of the medical technician and I agree with it. I have discussed the assessment and plan with the resident. I have reviewed the medications and the last labs.Pt with sepsis due to community acquired pneumonia. He is on AA and plavix for his PAD and CAD. He is going to TCU today. Afib is controlled. Pt is on Lipitor for dyslipidemia.
--- NOTE | 2018-06-07 08:39 | CP.PCM.DIS ---
Provider - Provider Date of Admission: 06/04/18 09:07 Attending physician: Primitivo Archibald MD Consults: 06/04/18 08:27 Consult [Physician Consult] Stat Comment: Consulting Provider: Chapin Wall Consulting Physician: Chapin Wall Reason for Consult: Rapid Afib, Severe Sepsis Additional Comments: 06/04/18 08:28 Infectious Disease Consult Stat Comment: Consulting Provider: Felipe Dueñas Consulting Physician: Felipe Dueñas Reason for Consult: Severe Sepsis, PNA 06/04/18 19:10 Social Work Referral Routine Comment: DSICHARGE PLANNING,NEEDS P.T,DECONDITIONING Physician Instructions: Reason For Exam: EVALUATION 06/05/18 09:04 Consult [Physician Consult] Routine Comment: Consulting Provider: Chapin Rojas Consulting Physician: Chapin Rojas Reason for Consult: PAD 06/05/18 15:17 Pulmonology Consult Routine Comment: Consulting Provider: Jatin Wilson Consulting Physician: Jatin Wilson Reason for Consult: UIP pattern on thoracic cuts of CT abdo/pelvis 06/06/18 09:09 TCU [Evaluation for TRCU] Routine Comment: Physician Instructions: thank you Reason For Exam: please evaluate patient for TCU Hospital Course - Lab Results Lab Results: Micro Results 06/04/18 07:20 Blood-Venous Blood Culture - Preliminary NO GROWTH AFTER 3 DAYS 06/04/18 07:04 Blood-Venous Blood Culture - Preliminary NO GROWTH AFTER 3 DAYS 06/04/18 11:45 Naris MRSA Culture (Admit) - Final MRSA NOT DETECTED 06/04/18 14:40 Urine Random Urine Culture - Final No Growth (<1,000 CFU/ML) Most Recent Lab Values WBC 11.8 10^3/uL (4.5-11.0) H D 06/07/18 07:30 RBC 4.14 10^6/uL (3.5-6.1) 06/07/18 07:30 Hgb 12.0 g/dL (14.0-18.0) L 06/07/18 07:30 Hct 36.5 % (42.0-52.0) L 06/07/18 07:30 MCV 88.2 fl (80.0-105.0) 06/07/18 07:30 MCH 29.0 pg (25.0-35.0) 06/07/18 07:30 MCHC 32.9 g/dl (31.0-37.0) 06/07/18 07:30 RDW 14.3 % (11.5-14.5) 06/07/18 07:30 Plt Count 190 10^3/uL (120.0-450.0) 06/07/18 07:30 MPV 11.4 fl (7.0-11.0) H 06/07/18 07:30 Gran % 93.8 % (50.0-68.0) H 06/06/18 06:20 Neut % (Auto) 90.4 % (50.0-68.0) H 06/07/18 07:30 Lymph % (Auto) 7.6 % (22.0-35.0) L 06/07/18 07:30 [place] % (Auto) 1.9 % (1.0-6.0) 06/07/18 07:30 Eos % (Auto) 0.0 % (1.5-5.0) L 06/07/18 07:30 Baso % (Auto) 0.1 % (0.0-3.0) 06/07/18 07:30 Gran # 19.22 (1.4-6.5) H 06/06/18 06:20 Lymph # (Auto) 0.9 (1.2-3.4) L 06/07/18 07:30 [place] # (Auto) 0.2 (0.1-0.6) 06/07/18 07:30 Eos # (Auto) 0.0 (0.0-0.7) 06/07/18 07:30 Baso # (Auto) 0.01 K/mm3 (0.0-2.0) 06/07/18 07:30 Absolute Neuts (auto) 10.64 (1.4-6.5) H 06/07/18 07:30 Neutrophils % (Manual) 86 % (50.0-70.0) H 06/04/18 07:00 Band Neutrophils % 3 % (0-2) H 06/04/18 07:00 Lymphocytes % (Manual) 5 % (22.0-35.0) L 06/04/18 07:00 Monocytes % (Manual) 6 % (1.0-6.0) 06/04/18 07:00 PT 14.4 SECONDS (9.4-12.5) H 06/04/18 07:00 INR 1.27 06/04/18 07:00 APTT 33.1 Seconds (26.9-38.3) 06/04/18 07:00 pCO2 32 mm/Hg (35-45) L 06/04/18 09:00 pO2 61 mm/Hg (30-55) H 06/04/18 16:10 HCO3 19.4 mmol/L (21-28) L 06/04/18 09:00 ABG pH 7.39 (7.35-7.45) 06/04/18 09:00 ABG Total CO2 20.4 mmol.L (22-28) L 06/04/18 09:00 ABG O2 Saturation 93.7 % (95-98) L 06/04/18 09:00 ABG Base Excess -4.6 mmol/L (-2.0-3.0) L 06/04/18 09:00 ABG Potassium 3.1 mmol/L (3.6-5.2) L 06/04/18 09:00 VBG pH 7.43 (7.32-7.43) 06/04/18 16:10 VBG pCO2 34.0 (40-60) L 06/04/18 16:10 VBG HCO3 22.6 mmol/l (21-28) 06/04/18 16:10 VBG Total CO2 23.6 mmol.L (22-28) 06/04/18 16:10 VBG O2 Sat (Calc) 95.3 % (40-65) H 06/04/18 16:10 VBG Base Excess -1.1 mmol/L (0.0-2.0) L 06/04/18 16:10 VBG Potassium 3.2 mmol/L (3.6-5.2) L 06/04/18 16:10 Sodium 134.0 mmol/L (132-148) 06/04/18 16:10 Chloride 101.0 mmol/L (98-107) 06/04/18 16:10 Glucose 314 mg/dl (75-110) H 06/04/18 16:10 Lactate 1.8 mmol/L (0.7-2.1) 06/04/18 16:10 FiO2 21.0 % 06/04/18 16:10 Crit Value Called To Yessica serrano 06/04/18 12:30 Crit Value Called By 06/04/18 12:30 Blood Gas Notified Time 1240 06/04/18 12:30 Sodium 139 mmol/L (132-148) 06/06/18 06:20 Potassium 5.4 mmol/L (3.6-5.0) H 06/06/18 06:20 Chloride 107 mmol/L (98-107) 06/06/18 06:20 Carbon Dioxide 24 mmol/L (21-33) 06/06/18 06:20 Anion Gap 13 (10-20) 06/06/18 06:20 BUN 48 mg/dL (7-21) H 06/06/18 06:20 Creatinine 1.1 mg/dl (0.8-1.5) 06/06/18 06:20 Est GFR ( Amer) > 60 06/06/18 06:20 Est GFR (Non-Af Amer) > 60 06/06/18 06:20 Random Glucose 123 mg/dL (70-110) H 06/06/18 06:20 Hemoglobin A1c 6.0 % (4.2-6.5) 06/05/18 05:35 Calcium 9.4 mg/dL (8.4-10.5) 06/06/18 06:20 Phosphorus 4.1 mg/dL (2.5-4.5) 06/06/18 06:20 Magnesium 2.1 mg/dL (1.7-2.2) 06/06/18 06:20 Total Bilirubin 0.4 mg/dL (0.2-1.3) 06/06/18 06:20 AST 75 U/L (17-59) H D 06/06/18 06:20 ALT 108 U/L (7-56) H 06/06/18 06:20 Alkaline Phosphatase 63 U/L (38-126) 06/06/18 06:20 Lactate Dehydrogenase 534 U/L (333-699) 06/04/18 07:00 Total Creatine Kinase 114 U/L (35-230) 06/04/18 07:00 Troponin I 0.03 ng/mL D 06/04/18 12:30 NT-Pro-B Natriuret Pep 1890 pg/mL (0-450) H 06/04/18 07:00 Total Protein 6.6 g/dL (5.8-8.3) 06/06/18 06:20 Albumin 3.4 g/dL (3.0-4.8) 06/06/18 06:20 Globulin 3.1 gm/dL 06/06/18 06:20 Albumin/Globulin Ratio 1.1 (1.1-1.8) 06/06/18 06:20 Triglycerides 115 mg/dL (35-160) 06/05/18 05:35 Cholesterol 93 mg/dL (130-200) L 06/05/18 05:35 LDL Cholesterol Direct 56 mg/dL (0-129) 06/05/18 05:35 HDL Cholesterol 19 mg/dL (29-60) L 06/05/18 05:35 Procalcitonin 3.22 NG/ML (0.19-0.49) H 06/06/18 15:58 Free T4 1.78 ng/dL (0.78-2.19) 06/05/18 05:35 TSH 3rd Generation 0.16 mIU/mL (0.46-4.68) L 06/05/18 05:35 Arterial Blood Potassium 3.1 mmol/L (3.6-5.2) L 06/04/18 09:00 Venous Blood Potassium 3.2 mmol/L (3.6-5.2) L 06/04/18 16:10 Urine Color Yellow (YELLOW) 06/04/18 09:35 Urine Appearance Clear (CLEAR) 06/04/18 09:35 Urine pH 6.0 (4.7-8.0) 06/04/18 09:35 Ur Specific [place] 1.020 (1.005-1.035) 06/04/18 09:35 Urine Protein Trace mg/dL (<30 mg/dL) H 06/04/18 09:35 Urine Glucose (UA) Negative mg/dL (NEGATIVE) 06/04/18 09:35 Urine Ketones Trace mg/dL (NEGATIVE) H 06/04/18 09:35 Urine Blood Small (NEGATIVE) H 06/04/18 09:35 Urine Nitrate Negative (NEGATIVE) 06/04/18 09:35 Urine Bilirubin Negative (NEGATIVE) 06/04/18 09:35 Urine Urobilinogen 0.2 E.U./dL (<1 E.U./dL) 06/04/18 09:35 Ur Leukocyte Esterase Negative [place]/uL (NEGATIVE) 06/04/18 09:35 Urine RBC 2 - 5 /hpf (0-2) H 06/04/18 09:35 Urine WBC 0 - 2 /hpf (0-6) 06/04/18 09:35 Ur Epithelial Cells None /hpf (0-5) 06/04/18 09:35 Amorphous Sediment Few /hpf (NONE) 06/04/18 09:35 Urine Bacteria Mod /hpf (NONE) 06/04/18 09:35 Coarse Granular Casts Trace /hpf (NONE) 06/04/18 09:35 Digoxin 1.0 ng/mL (0.8-2.0) 06/04/18 12:30 Influenza Typ A,B (EIA) Negative for flu a/b (NEGATIVE) 06/04/18 07:25 Ur L.pneumophila Ag Negative (NEGATIVE) 06/04/18 09:35 Ur Strep pneumoniae Ag Not detected (Not Detected) 06/04/18 09:35 Discharge Exam - Head Exam Head Exam: NORMAL INSPECTION Discharge Plan - Follow Up Plan Condition: CRITICAL Disposition: HOME/ ROUTINE
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
[2018-06-07 09:09] LABS: ATYPICAL LYMPHOCYTE 1 % (0.0-0.0); LYMPHOCYTE 6 % (22.0-35.0); MONOCYTE 6 % (1.0-6.0); NEUTROPHIL 87 % (50.0-70.0)
[2018-06-07] MEDS: Enoxaparin 40 mg Syringe SC SCH (09:52)
[2018-06-07] MEDS: Pantoprazole 40 mg EC Tab PO SCH (10:06)
[2018-06-07] MEDS: MethylPREDNISolone 40 mg Vial IVP SCH (10:06)
[2018-06-07] MEDS: oxyCODONE 10 mg ER Tab (oxyCONTIN) PO SCH (10:11)
[2018-06-07 10:17] VITALS: BP 130/64
--- NOTE | 2018-06-07 15:19 | PN ---
DATE: 06/07/2018 SUBJECTIVE: The patient is in bed in no acute distress and seen earlier today in 571, bed one. PHYSICAL EXAMINATION VITAL SIGNS: Temperature 98, blood pressure is 130/60, respiratory rate of 18. HEENT: Unremarkable. NECK: Supple. LUNGS: Have decreased breath sounds. HEART: Normal S1, S2. ABDOMEN: Soft. LABORATORY EXAMINATION: Reveals a white count of 11,800, hemoglobin of 12, platelets of 190. Chemistries reveals a BUN of 48, creatinine of 1.8. Urine cultures negative. Nares MRSA is negative. The blood cultures are negative. ASSESSMENT AND PLAN: This is a 77-year-old with severe sepsis secondary to left-sided healthcare-associated pneumonia in a patient with coronary artery disease, hypertension, chronic obstructive lung disease, asthma, hyperlipidemia, chronic right humerus fracture, on cefepime and doxycycline. The patient has completed a course of Tamiflu. Today is day #4. May change the doxycycline to p.o. The patient is also on cefepime and vancomycin. We will follow with you. Felipe Dueñas MD
--- NOTE | 2018-06-07 21:53 | US ---
PROCEDURE: Lower extremity BRADY exam HISTORY: Peripheral vascular disease with pain and claudication. Previous smoking PHYSICIAN(S): Chapin Rojas MD. FINDINGS: The right resting BRADY is normal, 0.98. The left resting BRADY is moderately abnormal, 0.68 The brachial systolic pressures are symmetric. The high thigh pressures and waveforms are relatively normal. There is a 29 mm gradient across the left thigh. The left calf, ankle, and metatarsal waveforms are moderately blunted. The findings are consistent with left SFA occlusive disease. The right calf PVR waveform is normal and augments normally. No significant gradient is seen. The right ankle and metatarsal waveforms are relatively normal. IMPRESSION: 1. Moderately abnormal left BRADY at rest. 2. Left SFA occlusive disease.
== END 2018-06-07 14:31 | DRG 871 ==
LOC: ED 06:37 → ERH 09:07 → CCU 11:30 → 5RSO 06-06 18:55
PROVIDERS: ADMIT Internal Medicine Nephrology; ATTEND Internal Medicine Nephrology
PROC: 5A09357 Assistance with Respiratory Ventilation, Less than 24 Consecutive Hours, Continuous Positive Airway Pressure (ICD-10-PCS; principal; 2018-06-04)
DX: A41.9 Sepsis, unspecified organism (principal); J18.9 Pneumonia, unspecified organism; J96.01 Acute respiratory failure with hypoxia; J44.1 Chronic obstructive pulmonary disease with (acute) exacerbation; J44.0 Chronic obstructive pulmonary disease with (acute) lower respiratory infection; M84.421A Pathological fracture, right humerus, initial encounter for fracture; I50.22 Chronic systolic (congestive) heart failure; I11.0 Hypertensive heart disease with heart failure; I48.0 Paroxysmal atrial fibrillation; I25.118 Atherosclerotic heart disease of native coronary artery with other forms of angina pectoris; R65.20 Severe sepsis without septic shock; R19.7 Diarrhea, unspecified; G89.29 Other chronic pain; E78.00 Pure hypercholesterolemia, unspecified; E78.5 Hyperlipidemia, unspecified; I73.9 Peripheral vascular disease, unspecified; Z79.891 Long term (current) use of opiate analgesic; Z87.891 Personal history of nicotine dependence; Z79.02 Long term (current) use of antithrombotics/antiplatelets; Z79.82 Long term (current) use of aspirin; Z95.5 Presence of coronary angioplasty implant and graft

== ENCOUNTER 2018-06-07 14:38 | Inpatient (IN) | payer OTHER ==
[2018-06-07 15:07] VITALS: BMI 19.3
[2018-06-07] MEDS ORDERED: oxyCODONE 30 mg Immediate Release Tab PO PRN (15:19)
[2018-06-07] MEDS ORDERED: Vancomycin 1gm in NS 250ml 1 GM/250 ML BAG IVPB SCH ×2 (15:45→22:00)
[2018-06-07] MEDS ORDERED: Pneumococcal 23-Valent Vaccine IM ONE (16:14)
[2018-06-07] MEDS ORDERED: Influenza Vaccine 60 mcg/0.5 mL SYR (4YR UP) IM ONE (16:14)
[2018-06-07] MEDS: Levalbuterol 1.25 MG/3 ML Inhal Soln UD IH SCH (20:15)
[2018-06-07] MEDS: Budesonide 0.5 mg/2 ml Inhal Susp UD IH SCH (20:15)
[2018-06-07] MEDS: Arformoterol 15 mcg/2 ml Inh Sol IH SCH (20:15)
[2018-06-07] MEDS: oxyCODONE 10 mg ER Tab (oxyCONTIN) PO SCH (21:23)
[2018-06-07] MEDS ORDERED: Cefepime IV 2 gm in NS 2 GM/100 ML BAG IVPB SCH (22:00)
[2018-06-07] MEDS ORDERED: Non Formulary Medication (Doxycycline Hyclate [Vibramycin] 100 MG) IVPB SCH (22:00)
[2018-06-07] MEDS ORDERED: MethylPREDNISolone 40 mg Vial IVP SCH (22:00)
[2018-06-08] MEDS: Levalbuterol 1.25 MG/3 ML Inhal Soln UD IH SCH ×4 (01:20→19:58)
[2018-06-08] MEDS: MethylPREDNISolone 40 mg Vial IVP SCH ×2 (05:27→17:31)
[2018-06-08] MEDS: Cefepime IV 2 gm in NS 2 GM/100 ML BAG IVPB SCH ×2 (05:27→17:30)
[2018-06-08] MEDS: Enoxaparin 40 mg Syringe SC SCH (05:29)
[2018-06-08] MEDS ORDERED: Pantoprazole 40 mg EC Tab PO SCH ×2 (06:00→06:09)
[2018-06-08] MEDS ORDERED: Enoxaparin 40 mg Syringe SC SCH (06:00)
[2018-06-08] MEDS ORDERED: Vancomycin 1gm in NS 250ml 1 GM/250 ML BAG IVPB SCH (06:00)
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
[2018-06-08] MEDS: Budesonide 0.5 mg/2 ml Inhal Susp UD IH SCH ×2 (07:23→19:58)
[2018-06-08] MEDS: Arformoterol 15 mcg/2 ml Inh Sol IH SCH ×2 (07:23→19:58)
[2018-06-08] MEDS: oxyCODONE 10 mg ER Tab (oxyCONTIN) PO SCH ×2 (09:54→21:25)
--- NOTE | 2018-06-08 12:06 | CON ---
DATE: 06/08/2018 The patient seen in Transitional Care, room 302. CHIEF COMPLAINT: Weakness times several days. HISTORY OF PRESENT ILLNESS: This is a 77-year-old male with past medical history of chronic obstructive lung disease, hypertension, hyperlipidemia, peripheral arterial disease, coronary artery disease, cardiac stents in the past, who was admitted with pulmonary symptoms and shortness of breath and cough, low-grade fevers, is being treated with antibiotics, acute care, now transferred to Transitional Care for physical therapy and further treatment. REVIEW OF SYSTEMS: Reveal 12-point review of systems is performed. PAST MEDICAL HISTORY: Significant for hypertension, coronary artery disease, peripheral arterial disease, chronic obstructive lung disease, asthma, hyperlipidemia, chronic right humerus fracture. PAST SURGICAL HISTORY: Significant for cardiac catheterization. ALLERGIES: THE PATIENT HAS NO KNOWN ALLERGIES. MEDICATIONS: Medications are reviewed. PHYSICAL EXAMINATION: VITAL SINGS: The patient is in bed with a temperature of 98, blood pressure is 130/60, respiratory rate of 18. HEENT: Examination of HEENT is unremarkable. NECK: Supple. LUNGS: The lungs have decreased breath sounds. HEART: Normal S1, S2. ABDOMEN: Soft, nontender. No rebound or guarding. LABORATORY DATA: Laboratory examination reveals the white count is down to 11,800, hemoglobin of 12. Coagulation is noted. Chemistries reveals a BUN of 48, creatinine of 1.1, and procalcitonin is 3.22, it was 8.57. Urinalysis is noted. Toxicology is reviewed. Serology is noted and influenza positive antibodies, rapid test is negative. Urine Legionella antigen is negative. Microbiology reveals the nasal MRSA screen is negative. Urine culture and blood cultures are negative. The patient's chest x-ray from yesterday, interval improvement in the lungs. Partial resolution of the opacities. ASSESSMENT AND PLAN: This is a 77-year-old male who has severe sepsis of left-sided healthcare-associated pneumonia in the of coronary artery disease, hypertension, chronic obstructive lung disease, asthma, hyperlipidemia, chronic right humerus fracture on cefepime and doxycycline day #5. The patient says already treated with Tamiflu for 5 days has been completed, also on vancomycin IV. The patient is on Solu-Medrol. We will discontinue the vancomycin. Since the nasal MRSA screen is negative, the blood cultures are negative and the patient is on doxycycline day #5 and cefepime day #5 with complete 4-7 days and we will also order a repeat procalcitonin. If it comes back negative, we will also discontinue the cefepime in next 24 hours. Pending repeat procalcitonin. Felipe Dueñas MD
[2018-06-09] MEDS: Levalbuterol 1.25 MG/3 ML Inhal Soln UD IH SCH ×4 (01:22→19:50)
[2018-06-09] MEDS: Cefepime IV 2 gm in NS 2 GM/100 ML BAG IVPB SCH ×2 (05:21→17:48)
[2018-06-09] MEDS: Pantoprazole 40 mg EC Tab PO SCH (05:27)
[2018-06-09] MEDS: MethylPREDNISolone 40 mg Vial IVP SCH (05:27)
[2018-06-09] MEDS: Enoxaparin 40 mg Syringe SC SCH (05:27)
--- NOTE | 2018-06-09 05:38 | CP.PCM.PN ---
<Gaston Smithima - Last Filed: 06/09/18 10:07> Subjective - Date & Time of Evaluation Date of Evaluation: 06/09/18 Time of Evaluation: 07:00 - Subjective Subjective: Pgy3 Medicine Progress note for Dr. Archibald Patient seen and examined at bedside. No acute events overnight as per nursing. Patient remained afebrile. Denied acute complaints fever, chills, headache, dizziness, chest pain, palpitations, SOB, cough, abd pain, nausea, vomiting, bowel/bladder complaints, swelling in his legs bilaterally. Patient continues to complain of b/l LE pain. Patient has good PO intake. Objective - Vital Signs/Intake and Output Vital Signs (last 24 hours): Temp Pulse Resp BP Pulse Ox 97.1 F L 53 L 16 143/70 100 06/08/18 16:00 06/08/18 21:32 06/08/18 16:00 06/08/18 21:32 06/08/18 16:00 Intake and Output: 06/08/18 06/09/18 18:59 06:59 Intake Total 250 Balance 250 - Medications Medications: Current Medications Acetaminophen (Tylenol 325mg Tab) 650 mg PO Q6H PRN; Protocol PRN Reason: Fever >100.4 F Acetaminophen (Tylenol 325mg Tab) 650 mg PO Q6H PRN; Protocol PRN Reason: Headache Arformoterol Tartrate (Brovana) 15 mcg IH [id number] [facility] Last Admin: 06/08/18 19:58 Dose: 15 mcg Aspirin (Ecotrin) 81 mg PO 0800 [facility]; Protocol Last Admin: 06/08/18 09:51 Dose: 81 mg Atorvastatin Calcium (Lipitor) 40 mg PO HS [facility]; Protocol Last Admin: 06/08/18 21:25 Dose: 40 mg Budesonide (Pulmicort Respules) 0.5 mg IH [id number] [facility]; Protocol Last Admin: 06/08/18 19:58 Dose: 0.5 mg Clopidogrel Bisulfate (Plavix) 75 mg PO DAILY [facility] Last Admin: 06/08/18 09:54 Dose: 75 mg Doxycycline Hyclate (Doryx) 100 mg PO Q12 [facility] Last Admin: 06/08/18 21:25 Dose: 100 mg Enoxaparin Sodium (Lovenox) 40 mg SC 0600 [facility]; Protocol Last Admin: 06/09/18 05:27 Dose: 40 mg Cefepime HCl (Maxipime 2gm) 2 gm in 100 mls @ 100 mls/hr IVPB 0600,1800 [facility]; Protocol Stop: 06/13/18 06:01 Last Admin: 06/09/18 05:21 Dose: 100 mls/hr Levalbuterol HCl (Xopenex) 1.25 mg IH [id number] [facility]; Protocol Last Admin: 06/09/18 01:22 Dose: 1.25 mg Lisinopril (Zestril) 20 mg PO DAILY [facility] Last Admin: 06/08/18 09:54 Dose: 20 mg Methylprednisolone (Solu-Medrol) 40 mg IVP 0600,1800 [facility]; Protocol Last Admin: 06/09/18 05:27 Dose: 40 mg Oxycodone HCl (Oxycodone Immediate Release Tab) 30 mg PO Q6H PRN; Protocol PRN Reason: Pain, moderate (4-7) Oxycodone HCl (Oxycontin Extended Release Tab) 30 mg PO Q12 [facility]; Protocol Stop: 06/10/18 22:01 Last Admin: 06/08/18 21:25 Dose: 30 mg Pantoprazole Sodium (Protonix Ec Tab) 40 mg PO 0600 [facility]; Protocol Last Admin: 06/09/18 05:27 Dose: 40 mg Sotalol HCl (Betapace) 80 mg PO Q12 [facility]; Protocol Last Admin: 06/08/18 21:32 Dose: Not Given - Additional Findings Additional findings: - Constitutional Appears: Non-toxic, No Acute Distress - Head Exam Head Exam: ATRAUMATIC, NORMAL INSPECTION, NORMOCEPHALIC - Eye Exam Eye Exam: EOMI, Normal appearance, PERRL. absent: Conjunctival injection, Scleral icterus - ENT Exam ENT Exam: Mucous Membranes Moist - Neck Exam Neck exam: Positive for: Full Rom, Normal Inspection. Negative for: Lymphadenopathy - Respiratory Exam Respiratory Exam: Clear to Auscultation Bilateral, NORMAL BREATHING PATTERN. absent: Accessory Muscle Use, Rales, Rhonchi, Wheezes, Respiratory Distress - Cardiovascular Exam Cardiovascular Exam: +S1, +S2 - GI/Abdominal Exam GI & Abdominal Exam: Normal Bowel Sounds, Soft. absent: Firm, Guarding, Rigid, Tenderness - Extremities Exam Extremities exam: Positive for: normal capillary refill, normal inspection, pedal pulses present. Negative for: pedal edema - Neurological Exam Neurological exam: Alert, CN II-XII Intact, Oriented x3 - Psychiatric Exam Psychiatric exam: Normal Affect, Normal Mood - Skin Skin Exam: Dry, Intact, Normal Color, Warm Assessment and Plan - Assessment and Plan (Free Text) Assessment: 1. L sided HCAP- improving 2. New onset Afib- controlled 3. Acute on Chronic COPD- improving 4. HTN 5. HLD 6. PAD 7. Chronic R humerus fracture 8. Chronic back pain 9. Chronic opioid use for chronic pain 10. Gait training and conditioning 11. Leukocytosis Plan: Patien's vitals, blood work, and imaging reviewed in chart. Patient has clinically improved and is afebrile. WBC 13.8 this AM. Pending flow cytometry. Procalcitonin elevated 0.54. CXR reviewed- will continue patient on Cefepime and Doxy as per ID reccs. Rapid flu and Urine legionella negative. Patient's HR controlled on Sotalol at this time. Tapering steroids down and will continue breathing treatments as per pulm. Thyroid studies wnl. Continue home lipitor and ASA and Plavix in light of patient's history of CAD with 3 stents. Lipid panel and HgbA1c wnl. Echo reviewed. Patient has good appetite. CT Abd/pelvis reviewed. Patient remained normotensive overnight on home Lisinopril. IR consulted for patient's PAD. Arterial studies revealed moderately abnl left BRADY at rest and left SFA occlusive disease. X-ray lumbosacral spine was ordered which was unremarkable. Maintain euglycemia and normothermia. DVT/GI ppx in place. HHD with [facility] [place]. Patient to continue working and ambulating with physical therapy. Discussed with Dr. Cristela Smith PGY3 <Primitivo Archibald - Last Filed: 06/09/18 17:08> Objective - Vital Signs/Intake and Output Vital Signs (last 24 hours): Temp Pulse Resp BP Pulse Ox 97.8 F 59 L 18 117/69 100 06/09/18 16:00 06/09/18 16:00 06/09/18 16:00 06/09/18 16:00 06/09/18 16:00 - Medications Medications: Current Medications Acetaminophen (Tylenol 325mg Tab) 650 mg PO Q6H PRN; Protocol PRN Reason: Fever >100.4 F Acetaminophen (Tylenol 325mg Tab) 650 mg PO Q6H PRN; Protocol PRN Reason: Headache Arformoterol Tartrate (Brovana) 15 mcg IH [id number] [facility] Last Admin: 06/09/18 07:13 Dose: 15 mcg Aspirin (Ecotrin) 81 mg PO 0800 [facility]; Protocol Last Admin: 06/09/18 08:30 Dose: 81 mg Atorvastatin Calcium (Lipitor) 80 mg PO HS [facility]; Protocol Budesonide (Pulmicort Respules) 0.5 mg IH [id number] [facility]; Protocol Last Admin: 06/09/18 07:13 Dose: 0.5 mg Clopidogrel Bisulfate (Plavix) 75 mg PO DAILY [facility] Last Admin: 06/09/18 10:40 Dose: 75 mg Doxycycline Hyclate (Doryx) 100 mg PO Q12 [facility] Last Admin: 06/09/18 10:39 Dose: 100 mg Enoxaparin Sodium (Lovenox) 40 mg SC 0600 [facility]; Protocol Last Admin: 06/09/18 05:27 Dose: 40 mg Cefepime HCl (Maxipime 2gm) 2 gm in 100 mls @ 100 mls/hr IVPB 0600,1800 [facility]; Protocol Stop: 06/13/18 06:01 Last Admin: 06/09/18 05:21 Dose: 100 mls/hr Levalbuterol HCl (Xopenex) 1.25 mg IH [id number] [facility]; Protocol Last Admin: 06/09/18 13:07 Dose: 1.25 mg Lisinopril (Zestril) 20 mg PO DAILY [facility] Last Admin: 06/09/18 10:40 Dose: Not Given Methylprednisolone (Solu-Medrol) 40 mg IVP DAILY [facility]; Protocol Stop: 06/11/18 12:00 Oxycodone HCl (Oxycodone Immediate Release Tab) 30 mg PO Q6H PRN; Protocol PRN Reason: Pain, moderate (4-7) Oxycodone HCl (Oxycontin Extended Release Tab) 30 mg PO Q12 [facility]; Protocol Stop: 06/10/18 22:01 Last Admin: 06/09/18 10:47 Dose: 30 mg Pantoprazole Sodium (Protonix Ec Tab) 40 mg PO 0600 [facility]; Protocol Last Admin: 06/09/18 05:27 Dose: 40 mg Sotalol HCl (Betapace) 80 mg PO Q12 [facility]; Protocol Last Admin: 06/09/18 10:49 Dose: Not Given - Labs Labs: 06/09/18 06:40 06/09/18 06:40 Assessment and Plan - Assessment and Plan (Free Text) Plan: Pt seen and examined by me. I have reviewed the note of the director medical economics and I agree with it. I have discussed the assessment and plan with the resident. I have reviewed the medications and the last labs.Pt with community acquired pneumonia. He has elevated WCC and I am concerned with CLL. Flow cytometry has been ordered and is pending. Pt is on Sotalol. He is on Cefepime for Abx. He is ambulating with PT on the TCU. Eating well and pain is controlled. He is on ASA and Plavix for CAD and PAD.
[2018-06-09 07:10] LABS: BASO # 0.01 K/mm3 (0.0-2.0); BASO % 0.1 % (0.0-3.0); EOS # 0.1 (0.0-0.7); EOS % 0.7 % (1.5-5.0); HEMOGLOBIN 13.8 g/dL (14.0-18.0); LYMPH # 1.6 (1.2-3.4); LYMPH % 11.4 % (22.0-35.0); MEAN CELL VOLUME 87.6 fl (80.0-105.0); MEAN CORPUSCULAR HGB CONC 33.1 g/dl (31.0-37.0); MEAN PLATELET VOLUME 11.7 fl (7.0-11.0); MONO # 1.2 (0.1-0.6); MONO % 8.7 % (1.0-6.0); RBC 4.76 10^6/uL (3.5-6.1); RED CELL DISTRIBUTION WIDTH 14.3 % (11.5-14.5); WHITE BLOOD COUNT 13.8 10^3/uL (4.5-11.0)
[2018-06-09] MEDS: Budesonide 0.5 mg/2 ml Inhal Susp UD IH SCH ×2 (07:13→19:50)
[2018-06-09] MEDS: Arformoterol 15 mcg/2 ml Inh Sol IH SCH ×2 (07:13→19:50)
[2018-06-09 07:49] LABS: ALBUMIN 2.8 g/dL (3.0-4.8); ALT/SGPT 71 U/L (7-56); AST/SGOT 30 U/L (17-59); BLOOD UREA NITROGEN 31 mg/dL (7-21); CALCIUM 8.6 mg/dL (8.4-10.5); GFR NON-AFRICAN AMERICAN > 60
--- NOTE | 2018-06-09 08:52 | PN ---
DATE: 06/09/2018 SUBJECTIVE: The patient appears comfortable this morning. He is not short of breath at rest. PHYSICAL EXAMINATION: VITAL SIGNS: (Last noted in the computer): Temperature is 97.1, pulse 53, respirations 16, blood pressure 123/70. Oxygen saturation on nasal cannula is 100%. HEENT: Normocephalic, atraumatic. No JVD. CARDIOVASCULAR: Systolic ejection murmur at the lower left sternal border. No S3 gallop. LUNGS: Crackles noted at the left base. Much less/minimal rhonchi. No wheezing. EXTREMITIES: No clubbing, cyanosis or edema. Calves are nontender to palpation. GASTROINTESTINAL: Abdomen is soft, nontender and nondistended. Bowel sounds are positive. SKIN: No acute rash. NEUROLOGIC: Exam limited at the present time. IMPRESSION: 1. Left lower lobe pneumonia. 2. Chronic obstructive pulmonary disease, possibly advanced. 3. Asthma. 4. Coronary artery disease. 5. Mild anemia. PLAN: The patient appears very comfortable this morning. He is not short of breath at rest. He does state to feeling much better overall. I did discuss the case with the night nurse at length. The night nurse stated the patient had a good night. On physical exam, there is certainly less bronchospasm noted. In addition, the oxygen saturation on nasal cannula is now 100%. I will continue the current nebulizer treatments and low-dose intravenous steroids for now. The patient remains on antibiotic therapy - as per Infectious Disease. Input by Dr. Dueñas is noted. Clinical status of the patient is certainly improved - compared to the initial presentation. However, given the above, the future status/prognosis for this patient does remain guarded. The patient is now on the Transitional Unit - where he will participate in physical therapy. I will discuss the above the attending physician. Jatin Wilson MD MTDD
[2018-06-09] MEDS ORDERED: MethylPREDNISolone 40 mg Vial IVP SCH (10:06)
[2018-06-09] MEDS: oxyCODONE 10 mg ER Tab (oxyCONTIN) PO SCH ×2 (10:47→21:24)
--- NOTE | 2018-06-09 12:59 | CP.PCM.PN ---
Subjective - Date & Time of Evaluation Date of Evaluation: 06/09/18 Time of Evaluation: 11:00 - Subjective Subjective: Comfortably resting in bed, no SOB at rest, no fevers, no diarrhea. Objective - Vital Signs/Intake and Output Vital Signs (last 24 hours): Temp Pulse Resp BP Pulse Ox 97.1 F L 56 L 16 123/65 100 06/08/18 16:00 06/09/18 10:49 06/08/18 16:00 06/09/18 10:40 06/08/18 16:00 - Medications Medications: Current Medications Acetaminophen (Tylenol 325mg Tab) 650 mg PO Q6H PRN; Protocol PRN Reason: Fever >100.4 F Acetaminophen (Tylenol 325mg Tab) 650 mg PO Q6H PRN; Protocol PRN Reason: Headache Arformoterol Tartrate (Brovana) 15 mcg IH [id number] [facility] Last Admin: 06/09/18 07:13 Dose: 15 mcg Aspirin (Ecotrin) 81 mg PO 0800 [facility]; Protocol Last Admin: 06/09/18 08:30 Dose: 81 mg Atorvastatin Calcium (Lipitor) 80 mg PO HS [facility]; Protocol Budesonide (Pulmicort Respules) 0.5 mg IH [id number] [facility]; Protocol Last Admin: 06/09/18 07:13 Dose: 0.5 mg Clopidogrel Bisulfate (Plavix) 75 mg PO DAILY [facility] Last Admin: 06/09/18 10:40 Dose: 75 mg Doxycycline Hyclate (Doryx) 100 mg PO Q12 [facility] Last Admin: 06/09/18 10:39 Dose: 100 mg Enoxaparin Sodium (Lovenox) 40 mg SC 0600 [facility]; Protocol Last Admin: 06/09/18 05:27 Dose: 40 mg Cefepime HCl (Maxipime 2gm) 2 gm in 100 mls @ 100 mls/hr IVPB 0600,1800 [facility]; P rotocol Stop: 06/13/18 06:01 Last Admin: 06/09/18 05:21 Dose: 100 mls/hr Levalbuterol HCl (Xopenex) 1.25 mg IH [id number] [facility]; Protocol Last Admin: 06/09/18 07:13 Dose: 1.25 mg Lisinopril (Zestril) 20 mg PO DAILY [facility] Last Admin: 06/09/18 10:40 Dose: Not Given Methylprednisolone (Solu-Medrol) 40 mg IVP DAILY [facility]; Protocol Stop: 06/11/18 12:00 Oxycodone HCl (Oxycodone Immediate Release Tab) 30 mg PO Q6H PRN; Protocol PRN Reason: Pain, moderate (4-7) Oxycodone HCl (Oxycontin Extended Release Tab) 30 mg PO Q12 [facility]; Protocol Stop: 06/10/18 22:01 Last Admin: 06/09/18 10:47 Dose: 30 mg Pantoprazole Sodium (Protonix Ec Tab) 40 mg PO 0600 [facility]; Protocol Last Admin: 06/09/18 05:27 Dose: 40 mg Sotalol HCl (Betapace) 80 mg PO Q12 [facility]; Protocol Last Admin: 06/09/18 10:49 Dose: Not Given - Labs Labs: 06/09/18 06:40 06/09/18 06:40 - Constitutional Appears: No Acute Distress, Chronically Ill - Head Exam Head Exam: NORMAL INSPECTION - Respiratory Exam Respiratory Exam: Decreased Breath Sounds - Cardiovascular Exam Cardiovascular Exam: +S1, +S2 - GI/Abdominal Exam GI & Abdominal Exam: Soft. absent: Tenderness Assessment and Plan - Assessment and Plan (Free Text) Plan: Assessment severe sepsis due to left sided HCAP, clinically improving CAD HTN COPD dyslipidemia peripheral arterial disease history of right humerus fracture Plan continue Doxycycline and Cefepime to complete total 7 days of therapy patient has completed course of Tamiflu nasal MRSA screen is negative blood cx are negative will continue to monitor clinically
[2018-06-10] MEDS: Levalbuterol 1.25 MG/3 ML Inhal Soln UD IH SCH ×4 (01:09→21:50)
[2018-06-10] MEDS: Enoxaparin 40 mg Syringe SC SCH (05:10)
[2018-06-10] MEDS: Cefepime IV 2 gm in NS 2 GM/100 ML BAG IVPB SCH ×2 (05:10→17:11)
[2018-06-10] MEDS: Pantoprazole 40 mg EC Tab PO SCH (05:11)
[2018-06-10] MEDS: Arformoterol 15 mcg/2 ml Inh Sol IH SCH ×2 (07:15→21:50)
[2018-06-10] MEDS: Budesonide 0.5 mg/2 ml Inhal Susp UD IH SCH ×2 (07:15→21:50)
--- NOTE | 2018-06-10 09:24 | CP.PCM.PN ---
<Felicia Smith - Last Filed: 06/10/18 17:26> Subjective - Date & Time of Evaluation Date of Evaluation: 06/10/18 Time of Evaluation: 07:30 - Subjective Subjective: Pgy3 Medicine progress note for Dr. Archibald Patient seen and examined at bedside. No acute events overnight. Patient no longer requiring BiPAP at night. Patient remained afebrile. Denied acute complaints fever, chills, headache, dizziness, chest pain, palpitations, SOB, cough, abd pain, nausea, vomiting, bowel/bladder complaints, swelling in his legs bilaterally. Objective - Vital Signs/Intake and Output Vital Signs (last 24 hours): Temp Pulse Resp BP Pulse Ox 97.8 F 62 18 115/65 100 06/09/18 16:00 06/09/18 21:21 06/09/18 16:00 06/09/18 21:21 06/09/18 16:28 - Medications Medications: Current Medications Acetaminophen (Tylenol 325mg Tab) 650 mg PO Q6H PRN; Protocol PRN Reason: Fever >100.4 F Acetaminophen (Tylenol 325mg Tab) 650 mg PO Q6H PRN; Protocol PRN Reason: Headache Arformoterol Tartrate (Brovana) 15 mcg IH [id number] [facility] Last Admin: 06/10/18 07:15 Dose: 15 mcg Aspirin (Ecotrin) 81 mg PO 0800 [facility]; Protocol Last Admin: 06/10/18 07:10 Dose: 81 mg Atorvastatin Calcium (Lipitor) 80 mg PO HS [facility]; Protocol Last Admin: 06/09/18 21:20 Dose: 80 mg Budesonide (Pulmicort Respules) 0.5 mg IH [id number] [facility]; Protocol Last Admin: 06/10/18 07:15 Dose: 0.5 mg Clopidogrel Bisulfate (Plavix) 75 mg PO DAILY [facility] Last Admin: 06/09/18 10:40 Dose: 75 mg Doxycycline Hyclate (Doryx) 100 mg PO Q12 [facility] Last Admin: 06/09/18 21:20 Dose: 100 mg Enoxaparin Sodium (Lovenox) 40 mg SC 0600 [facility]; Protocol Last Admin: 06/10/18 05:10 Dose: 40 mg Cefepime HCl (Maxipime 2gm) 2 gm in 100 mls @ 100 mls/hr IVPB 0600,1800 [facility]; Protocol Stop: 06/13/18 06:01 Last Admin: 06/10/18 05:10 Dose: 100 mls/hr Levalbuterol HCl (Xopenex) 1.25 mg IH [id number] [facility]; Protocol Last Admin: 06/10/18 07:15 Dose: 1.25 mg Lisinopril (Zestril) 20 mg PO DAILY [facility] Last Admin: 06/09/18 10:40 Dose: Not Given Oxycodone HCl (Oxycodone Immediate Release Tab) 30 mg PO Q6H PRN; Protocol PRN Reason: Pain, moderate (4-7) Oxycodone HCl (Oxycontin Extended Release Tab) 30 mg PO Q12 [facility]; Protocol Stop: 06/10/18 22:01 Last Admin: 06/09/18 21:24 Dose: 30 mg Pantoprazole Sodium (Protonix Ec Tab) 40 mg PO 0600 [facility]; Protocol Last Admin: 06/10/18 05:11 Dose: 40 mg Prednisone (Prednisone Tab) 30 mg PO DAILY [facility] Sotalol HCl (Betapace) 80 mg PO Q12 [facility]; Protocol Last Admin: 06/09/18 21:21 Dose: 80 mg - Labs Labs: 06/09/18 06:40 06/09/18 06:40 - Additional Findings Additional findings: - Constitutional Appears: Non-toxic, No Acute Distress - Head Exam Head Exam: ATRAUMATIC, NORMAL INSPECTION, NORMOCEPHALIC - Eye Exam Eye Exam: EOMI, Normal appearance, PERRL. absent: Conjunctival injection, Scleral icterus - ENT Exam ENT Exam: Mucous Membranes Moist - Neck Exam Neck exam: Positive for: Full Rom, Normal Inspection. Negative for: Lymphadenopathy - Respiratory Exam Respiratory Exam: Clear to Auscultation Bilateral, NORMAL BREATHING PATTERN. absent: Accessory Muscle Use, Rales, Rhonchi, Wheezes, Respiratory Distress - Cardiovascular Exam Cardiovascular Exam: +S1, +S2 - GI/Abdominal Exam GI & Abdominal Exam: Normal Bowel Sounds, Soft. absent: Firm, Guarding, Rigid, Tenderness - Extremities Exam Extremities exam: Positive for: normal capillary refill, normal inspection, pedal pulses present. Negative for: pedal edema - Neurological Exam Neurological exam: Alert, CN II-XII Intact, Oriented x3 - Psychiatric Exam Psychiatric exam: Normal Affect, Normal Mood - Skin Skin Exam: Dry, Intact, Normal Color, Warm Assessment and Plan - Assessment and Plan (Free Text) Assessment: - L sided HCAP- improving - New onset Afib- controlled - Acute on Chronic COPD- resolved - HTN - HLD - PAD - Chronic R humerus fracture - Chronic back pain - Chronic opioid use for chronic pain - Gait training and conditioning - Leukocytosis Plan: Patien's vitals, blood work, and imaging reviewed in chart. Patient to be on 7 days total of abx as per ID; today is day 6 of Cefepime and Doxy. Patient completed Tamiflu course. Pending flow cytometry. Procalcitonin elevated 0.54. CXR reviewed. Rapid flu and Urine legionella negative. Patient's HR controlled on Sotalol at this time. Tapering steroids down and will continue breathing treatments as per pulm. Thyroid studies wnl. Continue home lipitor and ASA and Plavix in light of patient's history of CAD with 3 stents. Lipid panel and HgbA1c wnl. Echo reviewed. Patient has good appetite. CT Abd/pelvis reviewed. Patient remained normotensive overnight on home Lisinopril. Arterial studies revealed moderately abnl left BRADY at rest and left SFA occlusive disease- likely outpatient follow up. X-ray lumbosacral spine was unremarkable. Maintain euglycemia and normothermia. DVT/GI ppx in place. HHD with [facility] [place] [place] ordered. Patient to continue working and ambulating with physical therapy. Discussed with Dr. Cristela Smith PGY3 <Primitivo Archibald S - Last Filed: 06/10/18 19:12> Objective - Vital Signs/Intake and Output Vital Signs (last 24 hours): Temp Pulse Resp BP Pulse Ox 99 F 65 20 105/61 95 06/10/18 16:00 06/10/18 16:00 06/10/18 16:00 06/10/18 16:00 06/10/18 16:00 - Medications Medications: Current Medications Acetaminophen (Tylenol 325mg Tab) 650 mg PO Q6H PRN; Protocol PRN Reason: Fever >100.4 F Acetaminophen (Tylenol 325mg Tab) 650 mg PO Q6H PRN; Protocol PRN Reason: Headache Arformoterol Tartrate (Brovana) 15 mcg IH [id number] [facility] Last Admin: 06/10/18 07:15 Dose: 15 mcg Aspirin (Ecotrin) 81 mg PO 0800 [facility]; Protocol Last Admin: 06/10/18 07:10 Dose: 81 mg Atorvastatin Calcium (Lipitor) 80 mg PO HS [facility]; Protocol Last Admin: 06/09/18 21:20 Dose: 80 mg Budesonide (Pulmicort Respules) 0.5 mg IH [id number] [facility]; Protocol Last Admin: 06/10/18 07:15 Dose: 0.5 mg Clopidogrel Bisulfate (Plavix) 75 mg PO DAILY [facility] Last Admin: 06/10/18 11:18 Dose: 75 mg Doxycycline Hyclate (Doryx) 100 mg PO Q12 [facility] Last Admin: 06/10/18 11:17 Dose: 100 mg Enoxaparin Sodium (Lovenox) 40 mg SC 0600 [facility]; Protocol Last Admin: 06/10/18 05:10 Dose: 40 mg Cefepime HCl (Maxipime 2gm) 2 gm in 100 mls @ 100 mls/hr IVPB 0600,1800 [facility]; Protocol Stop: 06/13/18 06:01 Last Admin: 06/10/18 17:11 Dose: 100 mls/hr Levalbuterol HCl (Xopenex) 1.25 mg IH [id number] [facility]; Protocol Last Admin: 06/10/18 13:05 Dose: 1.25 mg Lisinopril (Zestril) 20 mg PO DAILY [facility] Last Admin: 06/10/18 11:18 Dose: Not Given Oxycodone HCl (Oxycodone Immediate Release Tab) 30 mg PO Q6H [facility]; Protocol PRN Reason: Pain, moderate (4-7) Oxycodone HCl (Oxycontin Extended Release Tab) 30 mg PO Q12 [facility]; Protocol Stop: 06/10/18 22:01 Last Admin: 06/10/18 11:17 Dose: 30 mg Pantoprazole Sodium (Protonix Ec Tab) 40 mg PO 0600 [facility]; Protocol Last Admin: 06/10/18 05:11 Dose: 40 mg Prednisone (Prednisone Tab) 30 mg PO DAILY [facility] Last Admin: 06/10/18 11:18 Dose: 30 mg Sotalol HCl (Betapace) 80 mg PO Q12 [facility]; Protocol Last Admin: 06/10/18 11:16 Dose: Not Given - Labs Labs: 06/09/18 06:40 06/09/18 06:40 Assessment and Plan - Assessment and Plan (Free Text) Plan: Pt seen and examined by me. I have reviewed the note of the director of medical education and I agree with it. I have discussed the assessment and plan with the resident. I have reviewed the medications and the last labs. Pt with COPD that is stable. Pt is on ASA and Plavix for PAD. Pt is on Lisinopril for HTN. Pt is ambulating better with gait instability. HTN is controlled. Pain is controlled.
--- NOTE | 2018-06-10 10:37 | CP.PCM.PN ---
Subjective - Date & Time of Evaluation Date of Evaluation: 06/10/18 Time of Evaluation: 09:15 - Subjective Subjective: Comfortable on a chair and doing his physical therapy, no SOB at rest, cough is improved, less dyspnea on exertion, has more energy, no nausea or diarrhea. Objective - Vital Signs/Intake and Output Vital Signs (last 24 hours): Temp Pulse Resp BP Pulse Ox 97.1 F L 56 L 16 123/65 100 06/08/18 16:00 06/09/18 10:49 06/08/18 16:00 06/09/18 10:40 06/08/18 16:00 - Medications Medications: Current Medications Acetaminophen (Tylenol 325mg Tab) 650 mg PO Q6H PRN; Protocol PRN Reason: Fever >100.4 F Acetaminophen (Tylenol 325mg Tab) 650 mg PO Q6H PRN; Protocol PRN Reason: Headache Arformoterol Tartrate (Brovana) 15 mcg IH [id number] [facility] Last Admin: 06/09/18 07:13 Dose: 15 mcg Aspirin (Ecotrin) 81 mg PO 0800 [facility]; Protocol Last Admin: 06/09/18 08:30 Dose: 81 mg Atorvastatin Calcium (Lipitor) 80 mg PO HS [facility]; Protocol Budesonide (Pulmicort Respules) 0.5 mg IH [id number] [facility]; Protocol Last Admin: 06/09/18 07:13 Dose: 0.5 mg Clopidogrel Bisulfate (Plavix) 75 mg PO DAILY [facility] Last Admin: 06/09/18 10:40 Dose: 75 mg Doxycycline Hyclate (Doryx) 100 mg PO Q12 [facility] Last Admin: 06/09/18 10:39 Dose: 100 mg Enoxaparin Sodium (Lovenox) 40 mg SC 0600 [facility]; Protocol Last Admin: 06/09/18 05:27 Dose: 40 mg Cefepime HCl (Maxipime 2gm) 2 gm in 100 mls @ 100 mls/hr IVPB 0600,1800 [facility]; Protocol Stop: 06/13/18 06:01 Last Admin: 06/09/18 05:21 Dose: 100 mls/hr Levalbuterol HCl (Xopenex) 1.25 mg IH [id number] [facility]; Protocol Last Admin: 06/09/18 07:13 Dose: 1.25 mg Lisinopril (Zestril) 20 mg PO DAILY [facility] Last Admin: 06/09/18 10:40 Dose: Not Given Methylprednisolone (Solu-Medrol) 40 mg IVP DAILY [facility]; Protocol Stop: 06/11/18 12:00 Oxycodone HCl (Oxycodone Immediate Release Tab) 30 mg PO Q6H [facility]; Protocol PRN Reason: Pain, moderate (4-7) Oxycodone HCl (Oxycontin Extended Release Tab) 30 mg PO Q12 [facility]; Protocol Stop: 06/10/18 22:01 Last Admin: 06/09/18 10:47 Dose: 30 mg Pantoprazole Sodium (Protonix Ec Tab) 40 mg PO 0600 [facility]; Protocol Last Admin: 06/09/18 05:27 Dose: 40 mg Sotalol HCl (Betapace) 80 mg PO Q12 [facility]; Protocol Last Admin: 06/09/18 10:49 Dose: Not Given - Labs Labs: 06/09/18 06:40 06/09/18 06:40 - Constitutional Appears: No Acute Distress, Cachectic, Chronically Ill - Head Exam Head Exam: NORMAL INSPECTION - ENT Exam ENT Exam: Mucous Membranes Moist - Neck Exam Neck Exam: absent: Meningismus - Respiratory Exam Respiratory Exam: Decreased Breath Sounds (on the left base). absent: Rales - Cardiovascular Exam Cardiovascular Exam: +S1, +S2 - GI/Abdominal Exam GI & Abdominal Exam: Soft. absent: Tenderness Assessment and Plan - Assessment and Plan (Free Text) Plan: Assessment severe sepsis due to left sided HCAP, clinically improving CAD HTN COPD dyslipidemia peripheral arterial disease history of right humerus fracture Plan continue Doxycycline and Cefepime to complete total 7 days of therapy (day 6 today) patient has completed course of Tamiflu nasal MRSA screen is negative blood cx are negative will continue to monitor clinically
--- NOTE | 2018-06-10 10:37 | PN ---
DATE: 06/10/2018 SUBJECTIVE: The patient appears quite comfortable this morning. He is not short of breath at rest. PHYSICAL EXAMINATION: VITAL SIGNS: Temperature is 97.8, pulse 62, respirations 18, blood pressure 115/65. Oxygen saturation on nasal cannula is 100%. HEENT: Normocephalic, atraumatic. No JVD. CARDIOVASCULAR: Systolic ejection murmur at the lower left sternal border. No S3 gallop. LUNGS: Less crackles noted at the left base. Minimal/less rhonchi. No wheezing. EXTREMITIES: No clubbing, cyanosis or edema. Calves are nontender to palpation. GASTROINTESTINAL: Abdomen is soft, nontender and nondistended. Bowel sounds are positive. SKIN: No acute rash. NEUROLOGIC: Exam limited at the present time. IMPRESSION: 1. Left lower lobe pneumonia. 2. Chronic obstructive pulmonary disease, possibly advanced. 3. Asthma. 4. Coronary artery disease. 5. Mild anemia. PLAN: The patient appears quite comfortable this morning. He is not short of breath at rest. He does state to feeling much better overall. On physical exam, his bronchospasm continues to resolve. In addition, the alveolar-arterial gradient also continues to resolve. I will continue the current nebulizer treatments and change to oral steroids this morning. The patient remains on antibiotic therapy - as per Infectious Disease. Input by Dr. Benito is noted. Clinical status of the patient is significantly improved - compared to the initial presentation. However, given the above, the future status/prognosis for this patient does remain guarded. I will discuss the above with the attending physician. Jatin Wilson MD [facility]
[2018-06-10] MEDS: oxyCODONE 10 mg ER Tab (oxyCONTIN) PO SCH ×2 (11:17→21:21)
--- NOTE | 2018-06-10 23:51 | CON ---
DATE: 06/10/2018 TIME: 7:30 p.m. CHIEF COMPLAINT/HISTORY OF PRESENT ILLNESS: This is a 77-year-old gentleman who was admitted with shortness of breath and pneumonia/sepsis. I am seeing him concerning his PAD. He has had left calf claudication for quite some time. He is able to walk one-two blocks before experiencing left calf claudication. His right leg is relatively asymptomatic. Mr. Alegria is active and somewhat frustrated by his walking situation. He has a history of coronary artery disease and previous stent placement. He has quit smoking several years ago. He has COPD, hypertension, and dyslipidemia. His BRADY/PVR exam is normal on the right. On the left, there is a moderately abnormal BRADY, 0.68. He has evidence of left SFA disease on the left. PHYSICAL EXAMINATION: He has palpable femoral pulses. His right lower extremity pulses are normal distally. His left popliteal and pedal pulses are absent. He is not experiencing any rest pain or critical limb ischemia. No tissue loss is noted. I have ordered an MRA runoff for Mr. Alegria to evaluate his left SFA disease. His BUN and creatinine are normal. He can be followed up in the office where we can review the MRA and discuss options for his left lower extremity claudication. He does not need a procedure on this admission. Chapin Rojas MD MTDAdri
[2018-06-11] MEDS: Levalbuterol 1.25 MG/3 ML Inhal Soln UD IH SCH ×4 (02:33→23:20)
--- NOTE | 2018-06-11 05:11 | CP.PCM.PN ---
<Felicia Smith - Last Filed: 06/11/18 09:42> Subjective - Date & Time of Evaluation Date of Evaluation: 06/11/18 Time of Evaluation: 05:45 - Subjective Subjective: Pgy3 Medicine progress note for Dr. Archibald Patient seen and examined at bedside. Nursing reports no acute events overnight. Patient was sitting up in bed and comfortable this AM. Denied acute complaints fever, chills, headache, dizziness, chest pain, palpitations, SOB, cough, abd pain, nausea, vomiting, bowel/bladder complaints, swelling in his legs bilaterally. Objective - Vital Signs/Intake and Output Vital Signs (last 24 hours): Temp Pulse Resp BP Pulse Ox 99 F 63 20 108/59 L 95 06/10/18 16:00 06/10/18 21:22 06/10/18 16:00 06/10/18 21:22 06/10/18 16:00 - Medications Medications: Current Medications Acetaminophen (Tylenol 325mg Tab) 650 mg PO Q6H PRN; Protocol PRN Reason: Fever >100.4 F Acetaminophen (Tylenol 325mg Tab) 650 mg PO Q6H PRN; Protocol PRN Reason: Headache Arformoterol Tartrate (Brovana) 15 mcg IH [id number] [facility] Last Admin: 06/10/18 21:50 Dose: 15 mcg Aspirin (Ecotrin) 81 mg PO 0800 [facility]; Protocol Last Admin: 06/10/18 07:10 Dose: 81 mg Atorvastatin Calcium (Lipitor) 80 mg PO HS [facility]; Protocol Last Admin: 06/10/18 21:21 Dose: 80 mg Budesonide (Pulmicort Respules) 0.5 mg IH [id number] [facility]; Protocol Last Admin: 06/10/18 21:50 Dose: 0.5 mg Clopidogrel Bisulfate (Plavix) 75 mg PO DAILY [facility] Last Admin: 06/10/18 11:18 Dose: 75 mg Doxycycline Hyclate (Doryx) 100 mg PO Q12 [facility] Last Admin: 06/10/18 21:20 Dose: 100 mg Enoxaparin Sodium (Lovenox) 40 mg SC 0600 [facility]; Protocol Last Admin: 06/10/18 05:10 Dose: 40 mg Cefepime HCl (Maxipime 2gm) 2 gm in 100 mls @ 100 mls/hr IVPB 0600,1800 [facility]; Protocol Stop: 06/13/18 06:01 Last Admin: 06/10/18 17:11 Dose: 100 mls/hr Levalbuterol HCl (Xopenex) 1.25 mg IH [id number] [facility]; Protocol Last Admin: 06/11/18 02:33 Dose: Not Given Lisinopril (Zestril) 20 mg PO DAILY [facility] Last Admin: 06/10/18 11:18 Dose: Not Given Oxycodone HCl (Oxycodone Immediate Release Tab) 30 mg PO Q6H PRN; Protocol PRN Reason: Pain, moderate (4-7) Pantoprazole Sodium (Protonix Ec Tab) 40 mg PO 0600 [facility]; Protocol Last Admin: 06/10/18 05:11 Dose: 40 mg Prednisone (Prednisone Tab) 30 mg PO DAILY [facility] Last Admin: 06/10/18 11:18 Dose: 30 mg Sotalol HCl (Betapace) 80 mg PO Q12 [facility]; Protocol Last Admin: 06/10/18 21:22 Dose: Not Given - Labs Labs: 06/09/18 06:40 06/09/18 06:40 - Additional Findings Additional findings: - Constitutional Appears: Non-toxic, No Acute Distress - Head Exam Head Exam: ATRAUMATIC, NORMAL INSPECTION, NORMOCEPHALIC - Eye Exam Eye Exam: EOMI, Normal appearance, PERRL. absent: Conjunctival injection, Scleral icterus - ENT Exam ENT Exam: Mucous Membranes Moist - Neck Exam Neck exam: Positive for: Full Rom, Normal Inspection. Negative for: Lymphadenopathy - Respiratory Exam Respiratory Exam: Clear to Auscultation Bilateral, NORMAL BREATHING PATTERN. absent: Accessory Muscle Use, Rales, Rhonchi, Wheezes, Respiratory Distress - Cardiovascular Exam Cardiovascular Exam: +S1, +S2 - GI/Abdominal Exam GI & Abdominal Exam: Normal Bowel Sounds, Soft. absent: Firm, Guarding, Rigid, Tenderness - Extremities Exam Extremities exam: Positive for: normal capillary refill, normal inspection, pedal pulses present. Negative for: pedal edema - Neurological Exam Neurological exam: Alert, CN II-XII Intact, Oriented x3 - Psychiatric Exam Psychiatric exam: Normal Affect, Normal Mood - Skin Skin Exam: Dry, Intact, Normal Color, Warm Assessment and Plan - Assessment and Plan (Free Text) Assessment: - L sided HCAP- improving - New onset Afib- controlled - Acute on Chronic COPD- resolved - HTN - HLD - PAD - Chronic R humerus fracture - Chronic back pain - Chronic opioid use for chronic pain - Gait training and conditioning - Leukocytosis Plan: Patien's vitals, blood work, and imaging reviewed in chart. Patient on Cefepime and Doxy. Patient completed Tamiflu course. Pending flow cytometry. Procalcitonin elevated 0.54. CXR reviewed. Rapid flu and Urine legionella negative. Patient's HR controlled on Sotalol at this time. Tapering steroids down and will continue breathing treatments as per pulm. Thyroid studies wnl. Continue home lipitor and ASA and Plavix in light of patient's history of CAD with 3 stents. Lipid panel and HgbA1c wnl. Echo reviewed. CT Abd/pelvis reviewed. Patient remained normotensive overnight on home Lisinopril. Arterial studies revealed moderately abnl left BRADY at rest and left SFA occlusive disease. MRA ordered as per IR- likely outpatient follow up. X-ray lumbosacral spine unremarkable. Maintain euglycemia and normothermia. DVT/GI ppx in place. HHD with [facility] ordered. Patient to continue working and ambulating with physical therapy. Patient has good appetite. Discussed with Dr. Cristela Smith PGY3 <Primitivo Archibald S - Last Filed: 06/11/18 20:22> Objective - Vital Signs/Intake and Output Vital Signs (last 24 hours): Temp Pulse Resp BP Pulse Ox 98.3 F 56 L 18 91/53 L 95 06/11/18 16:00 06/11/18 16:00 06/11/18 16:00 06/11/18 16:00 06/11/18 16:00 - Medications Medications: Current Medications Acetaminophen (Tylenol 325mg Tab) 650 mg PO Q6H PRN; Protocol PRN Reason: Fever >100.4 F Acetaminophen (Tylenol 325mg Tab) 650 mg PO Q6H PRN; Protocol PRN Reason: Headache Arformoterol Tartrate (Brovana) 15 mcg IH [id number] [facility] Last Admin: 06/11/18 08:02 Dose: 15 mcg Aspirin (Ecotrin) 81 mg PO 0800 [facility]; Protocol Last Admin: 06/11/18 08:08 Dose: 81 mg Atorvastatin Calcium (Lipitor) 80 mg PO HS [facility]; Protocol Last Admin: 06/10/18 21:21 Dose: 80 mg Budesonide (Pulmicort Respules) 0.5 mg IH [id number] [facility]; Protocol Last Admin: 06/11/18 08:02 Dose: 0.5 mg Clopidogrel Bisulfate (Plavix) 75 mg PO DAILY [facility] Last Admin: 06/11/18 10:32 Dose: 75 mg Doxycycline Hyclate (Doryx) 100 mg PO Q12 [facility] Last Admin: 06/11/18 10:32 Dose: 100 mg Enoxaparin Sodium (Lovenox) 40 mg SC 0600 [facility]; Protocol Last Admin: 06/11/18 05:52 Dose: 40 mg Cefepime HCl (Maxipime 2gm) 2 gm in 100 mls @ 100 mls/hr IVPB 0600,1800 [facility]; Protocol Stop: 06/13/18 06:01 Last Admin: 06/11/18 17:19 Dose: 100 mls/hr Levalbuterol HCl (Xopenex) 1.25 mg IH [id number] [facility]; Protocol Last Admin: 06/11/18 13:29 Dose: 1.25 mg Lisinopril (Zestril) 20 mg PO DAILY [facility] Last Admin: 06/11/18 10:33 Dose: 20 mg Oxycodone HCl (Oxycodone Immediate Release Tab) 30 mg PO Q6H PRN; Protocol PRN Reason: Pain, moderate (4-7) Oxycodone HCl (Oxycontin Extended Release Tab) 30 mg PO Q12 [facility] Last Admin: 06/11/18 10:38 Dose: 30 mg Pantoprazole Sodium (Protonix Ec Tab) 40 mg PO 0600 [facility]; Protocol Last Admin: 06/11/18 05:51 Dose: 40 mg Prednisone (Prednisone Tab) 30 mg PO DAILY [facility] Last Admin: 06/11/18 10:32 Dose: 30 mg Sotalol HCl (Betapace) 80 mg PO Q12 [facility]; Protocol Last Admin: 06/11/18 10:31 Dose: 80 mg - Labs Labs: 06/11/18 06:30 06/11/18 06:30 Assessment and Plan - Assessment and Plan (Free Text) Plan: Pt seen and examined by me. I have reviewed the note of the medical van driver and I agree with it. I have discussed the assessment and plan with the resident. I have reviewed the medications and the last labs. Pt on TCU and getting rehab. Pneumonia is improved. He is feeling well. Pt is on ASA and Plavix for CAD and PAD. Pt is on Lisinopril for HTN.
[2018-06-11] MEDS: Pantoprazole 40 mg EC Tab PO SCH (05:51)
[2018-06-11] MEDS: Cefepime IV 2 gm in NS 2 GM/100 ML BAG IVPB SCH ×2 (05:51→17:19)
[2018-06-11] MEDS: Enoxaparin 40 mg Syringe SC SCH (05:52)
[2018-06-11 06:58] LABS: BASO # 0.02 K/mm3 (0.0-2.0); BASO % 0.2 % (0.0-3.0); EOS # 0.2 (0.0-0.7); EOS % 1.8 % (1.5-5.0); LYMPH # 2.2 (1.2-3.4); LYMPH % 16.8 % (22.0-35.0); MEAN CELL VOLUME 87.2 fl (80.0-105.0); MEAN CORPUSCULAR HEMOGLOBIN 29.1 pg (25.0-35.0); MEAN CORPUSCULAR HGB CONC 33.3 g/dl (31.0-37.0); MEAN PLATELET VOLUME 11.1 fl (7.0-11.0); MONO # 1.1 (0.1-0.6); MONO % 8.4 % (1.0-6.0); RBC 4.13 10^6/uL (3.5-6.1); RED CELL DISTRIBUTION WIDTH 14.2 % (11.5-14.5); WHITE BLOOD COUNT 13.3 10^3/uL (4.5-11.0)
[2018-06-11 06:59] LABS: ALB/GLOB RATIO 1.1 (1.1-1.8); ALBUMIN 2.7 g/dL (3.0-4.8); ALT/SGPT 68 U/L (7-56); AST/SGOT 27 U/L (17-59); BLOOD UREA NITROGEN 28 mg/dL (7-21); CALCIUM 8.6 mg/dL (8.4-10.5); GFR NON-AFRICAN AMERICAN > 60
[2018-06-11] MEDS: Budesonide 0.5 mg/2 ml Inhal Susp UD IH SCH ×2 (08:02→23:20)
[2018-06-11] MEDS: Arformoterol 15 mcg/2 ml Inh Sol IH SCH ×2 (08:02→23:20)
[2018-06-11] MEDS: oxyCODONE 10 mg ER Tab (oxyCONTIN) PO SCH ×2 (10:38→21:19)
--- NOTE | 2018-06-11 12:58 | CP.PCM.PN ---
Subjective - Date & Time of Evaluation Date of Evaluation: 06/11/18 Time of Evaluation: 11:30 - Subjective Subjective: No fevers, not in distress, doing his physical therapy ok. Objective - Vital Signs/Intake and Output Vital Signs (last 24 hours): Temp Pulse Resp BP Pulse Ox 97.8 F 62 18 115/65 100 06/09/18 16:00 06/09/18 21:21 06/09/18 16:00 06/09/18 21:21 06/09/18 16:28 - Medications Medications: Current Medications Acetaminophen (Tylenol 325mg Tab) 650 mg PO Q6H PRN; Protocol PRN Reason: Fever >100.4 F Acetaminophen (Tylenol 325mg Tab) 650 mg PO Q6H PRN; Protocol PRN Reason: Headache Arformoterol Tartrate (Brovana) 15 mcg IH [id number] [facility] Last Admin: 06/10/18 07:15 Dose: 15 mcg Aspirin (Ecotrin) 81 mg PO 0800 [facility]; Protocol Last Admin: 06/10/18 07:10 Dose: 81 mg Atorvastatin Calcium (Lipitor) 80 mg PO HS [facility]; Protocol Last Admin: 06/09/18 21:20 Dose: 80 mg Budesonide (Pulmicort Respules) 0.5 mg IH [id number] [facility]; Protocol Last Admin: 06/10/18 07:15 Dose: 0.5 mg Clopidogrel Bisulfate (Plavix) 75 mg PO DAILY [facility] Last Admin: 06/09/18 10:40 Dose: 75 mg Doxycycline Hyclate (Doryx) 100 mg PO Q12 [facility] Last Admin: 06/09/18 21:20 Dose: 100 mg Enoxaparin Sodium (Lovenox) 40 mg SC 0600 [facility]; Protocol Last Admin: 06/10/18 05:10 Dose: 40 mg Cefepime HCl (Maxipime 2gm) 2 gm in 100 mls @ 100 mls/hr IVPB 0600,1800 [facility]; Protocol Stop: 06/13/18 06:01 Last Admin: 06/10/18 05:10 Dose: 100 mls/hr Levalbuterol HCl (Xopenex) 1.25 mg IH [id number] [facility]; Protocol Last Admin: 06/10/18 07:15 Dose: 1.25 mg Lisinopril (Zestril) 20 mg PO DAILY [facility] Last Admin: 06/09/18 10:40 Dose: Not Given Oxycodone HCl (Oxycodone Immediate Release Tab) 30 mg PO Q6H PRN; Protocol PRN Reason: Pain, moderate (4-7) Oxycodone HCl (Oxycontin Extended Release Tab) 30 mg PO Q12 [facility]; Protocol Stop: 06/10/18 22:01 Last Admin: 06/09/18 21:24 Dose: 30 mg Pantoprazole Sodium (Protonix Ec Tab) 40 mg PO 0600 [facility]; Protocol Last Admin: 06/10/18 05:11 Dose: 40 mg Prednisone (Prednisone Tab) 30 mg PO DAILY [facility] Sotalol HCl (Betapace) 80 mg PO Q12 [facility]; Protocol Last Admin: 06/09/18 21:21 Dose: 80 mg - Labs Labs: 06/09/18 06:40 06/09/18 06:40 - Constitutional Appears: Cachectic, Chronically Ill - Head Exam Head Exam: NORMAL INSPECTION - Respiratory Exam Respiratory Exam: Decreased Breath Sounds - Cardiovascular Exam Cardiovascular Exam: +S1, +S2 - GI/Abdominal Exam GI & Abdominal Exam: Soft. absent: Tenderness Assessment and Plan - Assessment and Plan (Free Text) Plan: Assessment severe sepsis due to left sided HCAP, clinically improving CAD HTN COPD dyslipidemia peripheral arterial disease history of right humerus fracture Plan continue Doxycycline and Cefepime to complete total 7 days of therapy (day 7 today) - will d/c after today patient has completed course of Tamiflu nasal MRSA screen is negative blood cx are negative will continue to monitor clinically
[2018-06-12] MEDS: Levalbuterol 1.25 MG/3 ML Inhal Soln UD IH SCH ×4 (03:00→20:17)
[2018-06-12] MEDS: Cefepime IV 2 gm in NS 2 GM/100 ML BAG IVPB SCH ×2 (05:05→17:52)
[2018-06-12] MEDS: Enoxaparin 40 mg Syringe SC SCH (05:05)
[2018-06-12] MEDS: Pantoprazole 40 mg EC Tab PO SCH (05:05)
--- NOTE | 2018-06-12 06:37 | CP.PCM.PN ---
<Felicia Smith - Last Filed: 06/12/18 14:58> Subjective - Date & Time of Evaluation Date of Evaluation: 06/12/18 Time of Evaluation: 06:45 - Subjective Subjective: Pgy3 Medicine progress note for Dr. Archibald Patient seen and examined at bedside. As per nursing no acute events overnight. Patient resting comfortably and denied acute complaints fever, chills, headache, dizziness, chest pain, palpitations, SOB, cough, abd pain, nausea, vomiting, bowel/bladder complaints, swelling in his legs b/l. Patient does have pain in his LLE. Objective - Vital Signs/Intake and Output Vital Signs (last 24 hours): Temp Pulse Resp BP Pulse Ox 98.3 F 54 L 18 109/63 95 06/11/18 16:00 06/11/18 21:20 06/11/18 16:00 06/11/18 21:20 06/11/18 16:00 Intake and Output: 06/11/18 06/12/18 18:59 06:59 Intake Total 280 Balance 280 - Medications Medications: Current Medications Acetaminophen (Tylenol 325mg Tab) 650 mg PO Q6H PRN; Protocol PRN Reason: Fever >100.4 F Acetaminophen (Tylenol 325mg Tab) 650 mg PO Q6H PRN; Protocol PRN Reason: Headache Arformoterol Tartrate (Brovana) 15 mcg IH [id number] [facility] Last Admin: 06/11/18 23:20 Dose: 15 mcg Aspirin (Ecotrin) 81 mg PO 0800 [facility]; Protocol Last Admin: 06/11/18 08:08 Dose: 81 mg Atorvastatin Calcium (Lipitor) 80 mg PO HS [facility]; Protocol Last Admin: 06/11/18 21:19 Dose: 80 mg Budesonide (Pulmicort Respules) 0.5 mg IH [id number] [facility]; Protocol Last Admin: 06/11/18 23:20 Dose: 0.5 mg Clopidogrel Bisulfate (Plavix) 75 mg PO DAILY [facility] Last Admin: 06/11/18 10:32 Dose: 75 mg Doxycycline Hyclate (Doryx) 100 mg PO Q12 [facility] Last Admin: 06/11/18 21:19 Dose: 100 mg Enoxaparin Sodium (Lovenox) 40 mg SC 0600 [facility]; Protocol Last Admin: 06/12/18 05:05 Dose: 40 mg Cefepime HCl (Maxipime 2gm) 2 gm in 100 mls @ 100 mls/hr IVPB 0600,1800 [facility]; Protocol Stop: 06/13/18 06:01 Last Admin: 06/12/18 05:05 Dose: 100 mls/hr Levalbuterol HCl (Xopenex) 1.25 mg IH [id number] [facility]; Protocol Last Admin: 06/12/18 03:00 Dose: Not Given Lisinopril (Zestril) 20 mg PO DAILY [facility] Last Admin: 06/11/18 10:33 Dose: 20 mg Oxycodone HCl (Oxycodone Immediate Release Tab) 30 mg PO Q6H PRN; Protocol PRN Reason: Pain, moderate (4-7) Oxycodone HCl (Oxycontin Extended Release Tab) 30 mg PO Q12 [facility] Last Admin: 06/11/18 21:19 Dose: 30 mg Pantoprazole Sodium (Protonix Ec Tab) 40 mg PO 0600 [facility]; Protocol Last Admin: 06/12/18 05:05 Dose: 40 mg Prednisone (Prednisone Tab) 30 mg PO DAILY [facility] Last Admin: 06/11/18 10:32 Dose: 30 mg Sotalol HCl (Betapace) 80 mg PO Q12 [facility]; Protocol Last Admin: 06/11/18 21:20 Dose: Not Given - Labs Labs: 06/11/18 06:30 06/11/18 06:30 - Additional Findings Additional findings: - Constitutional Appears: Non-toxic, No Acute Distress - Head Exam Head Exam: ATRAUMATIC, NORMAL INSPECTION, NORMOCEPHALIC - Eye Exam Eye Exam: EOMI, Normal appearance, PERRL. absent: Conjunctival injection, Scleral icterus - ENT Exam ENT Exam: Mucous Membranes Moist - Neck Exam Neck exam: Positive for: Full Rom, Normal Inspection. Negative for: Lymphadenopathy - Respiratory Exam Respiratory Exam: Clear to Auscultation Bilateral, NORMAL BREATHING PATTERN. absent: Accessory Muscle Use, Rales, Rhonchi, Wheezes, Respiratory Distress - Cardiovascular Exam Cardiovascular Exam: +S1, +S2 - GI/Abdominal Exam GI & Abdominal Exam: Normal Bowel Sounds, Soft. absent: Firm, Guarding, Rigid, Tenderness - Extremities Exam Extremities exam: Positive for: normal capillary refill, normal inspection, pedal pulses present. Negative for: pedal edema - Neurological Exam Neurological exam: Alert, CN II-XII Intact, Oriented x3 - Psychiatric Exam Psychiatric exam: Normal Affect, Normal Mood - Skin Skin Exam: Dry, Intact, Normal Color, Warm Assessment and Plan - Assessment and Plan (Free Text) Assessment: - L sided HCAP- improving - New onset Afib- controlled - Acute on Chronic COPD- resolved - HTN - HLD - PAD - Chronic R humerus fracture - Chronic back pain - Chronic opioid use for chronic pain - Gait training and conditioning - Leukocytosis Plan: Patien's vitals, blood work, and imaging reviewed in chart. As per ID patient's Cefepime and Doxy can be discontinued [last dose today]. Patient completed Tamiflu course. Nasal MRSA screen is negative. Flow cytometry revealed no evidence for abnormal myeloid maturation or increased blast population; no evidence for lymphoproliferative disorder. CXR reviewed. Rapid flu and Urine legionella negative. Patient's HR controlled on Sotalol at this time. Tapering steroids down and will continue breathing treatments as per pulm. Thyroid studies wnl. Continue home lipitor and ASA and Plavix in light of patient's history of CAD with 3 stents. Lipid panel and HgbA1c wnl. Echo reviewed. CT Abd/pelvis reviewed. Patient remained normotensive overnight on home Lisinopril. Arterial studies revealed moderately abnl left BRADY at rest and left SFA occlusive disease. MRA ordered as per IR- recommend follow up. X-ray lumbosacral spine unremarkable. Maintain euglycemia and normothermia. Patient's home pain medications on board. DVT/GI ppx in place. HHD with [facility] ordered. Patient to continue working and ambulating with physical therapy. Discussed with Dr. Cristela Smith PGY3 <Primitivo Archibald S - Last Filed: 06/12/18 18:14> Objective - Vital Signs/Intake and Output Vital Signs (last 24 hours): Temp Pulse Resp BP Pulse Ox 98.4 F 59 L 20 103/59 L 94 L 06/12/18 16:00 06/12/18 16:28 06/12/18 16:00 06/12/18 16:00 06/12/18 16:28 Intake and Output: 06/12/18 06/12/18 06:59 18:59 Intake Total 280 Balance 280 - Medications Medications: Current Medications Acetaminophen (Tylenol 325mg Tab) 650 mg PO Q6H PRN; Protocol PRN Reason: Fever >100.4 F Acetaminophen (Tylenol 325mg Tab) 650 mg PO Q6H PRN; Protocol PRN Reason: Headache Arformoterol Tartrate (Brovana) 15 mcg IH [id number] [facility] Last Admin: 06/12/18 07:28 Dose: 15 mcg Aspirin (Ecotrin) 81 mg PO 0800 [facility]; Protocol Last Admin: 06/12/18 08:38 Dose: 81 mg Atorvastatin Calcium (Lipitor) 80 mg PO HS [facility]; Protocol Last Admin: 06/11/18 21:19 Dose: 80 mg Budesonide (Pulmicort Respules) 0.5 mg IH [id number] [facility]; Protocol Last Admin: 06/12/18 07:28 Dose: 0.5 mg Clopidogrel Bisulfate (Plavix) 75 mg PO DAILY [facility] Last Admin: 06/12/18 11:00 Dose: 75 mg Doxycycline Hyclate (Doryx) 100 mg PO Q12 [facility] Stop: 06/13/18 00:00 Last Admin: 06/12/18 10:57 Dose: 100 mg Enoxaparin Sodium (Lovenox) 40 mg SC 0600 [facility]; Protocol Last Admin: 06/12/18 05:05 Dose: 40 mg Cefepime HCl (Maxipime 2gm) 2 gm in 100 mls @ 100 mls/hr IVPB 0600,1800 [facility]; Protocol Stop: 06/13/18 00:00 Last Admin: 06/12/18 17:52 Dose: 100 mls/hr Levalbuterol HCl (Xopenex) 1.25 mg IH [id number] [facility]; Protocol Last Admin: 06/12/18 14:03 Dose: 1.25 mg Lisinopril (Zestril) 20 mg PO DAILY [facility] Last Admin: 06/12/18 11:00 Dose: 20 mg Oxycodone HCl (Oxycodone Immediate Release Tab) 30 mg PO Q6H [facility]; Protocol PRN Reason: Pain, moderate (4-7) Oxycodone HCl (Oxycontin Extended Release Tab) 30 mg PO Q12 [facility] Last Admin: 06/12/18 10:59 Dose: 30 mg Pantoprazole Sodium (Protonix Ec Tab) 40 mg PO 0600 [facility]; Protocol Last Admin: 06/12/18 05:05 Dose: 40 mg Prednisone (Prednisone Tab) 20 mg PO DAILY [facility] Last Admin: 06/12/18 17:52 Dose: 20 mg Sotalol HCl (Betapace) 80 mg PO Q12 [facility]; Protocol Last Admin: 06/12/18 10:57 Dose: Not Given - Labs Labs: 06/11/18 06:30 06/11/18 06:30 Assessment and Plan - Assessment and Plan (Free Text) Plan: Patient was seen and examined by. I have reviewed the note of the ophthalmic medical technologist and have gone over the plan of care. I agree with the not. I have reviewed the medications and the last labs. Pt with pneumonia that has improved. Flow cytometry was negative. Pt is doing very will with PT and ambulating. He is on ASA and Plavix for his PAD and CAD. He was seen by Dr Chapin Rojas yesterday and does not require further intervention. His pain is controlled with the pain medications he is on. BP is stable. Pt finished Tamiflu. He is on Lipitor for dyslipidemia.
[2018-06-12] MEDS: Arformoterol 15 mcg/2 ml Inh Sol IH SCH ×2 (07:28→20:17)
[2018-06-12] MEDS: Budesonide 0.5 mg/2 ml Inhal Susp UD IH SCH ×2 (07:28→20:17)
[2018-06-12] MEDS: oxyCODONE 10 mg ER Tab (oxyCONTIN) PO SCH ×2 (10:59→21:14)
--- NOTE | 2018-06-12 12:44 | PN ---
DATE: 06/12/2018 PULMONARY NOTE SUBJECTIVE: The patient appears very comfortable this morning. He is not short of breath at rest. PHYSICAL EXAMINATION: VITAL SIGNS: Temperature is 98.3, pulse 54, respirations 18, blood pressure 109/63. Oxygen saturation on room air is 95%. HEENT: Normocephalic, atraumatic. NECK: No JVD. CARDIOVASCULAR: Systolic ejection murmur at the lower left sternal border. No S3 gallop. LUNGS: Minimal crackles - left base. Very minimal/less rhonchi. No wheezing. GI: Abdomen is soft, nontender and nondistended. Bowel sounds are positive. EXTREMITIES: No clubbing, cyanosis or edema. Calves are nontender to palpation. SKIN: No acute rash. NEUROLOGIC: Exam limited at the present time. IMPRESSION: 1. Left lower lobe pneumonia. 2. Chronic obstructive pulmonary disease, possibly advanced. 3. Asthma. 4. Coronary artery disease. 5. Mild anemia. PLAN: The patient appears very comfortable this morning. He is not short of breath at rest. He does state to feeling much better overall. On physical exam, his bronchospasm continues to resolve. In addition, the alveolar-arterial gradient also continues to resolve. I will continue the current nebulizer treatments and decrease the oral steroids this morning. The patient remains on antibiotic therapy - as per Infectious Disease. There are no temperatures noted. Clinical status of the patient has significantly improved - compared to the initial presentation. However, given the above, the future status/prognosis of this patient does remain guarded. I will discuss the above with the attending physician. Jatin Wilson MD MTDAdri
--- NOTE | 2018-06-12 13:33 | CP.PCM.PN ---
Subjective - Date & Time of Evaluation Date of Evaluation: 06/12/18 Time of Evaluation: 09:30 - Subjective Subjective: Doing his physical therapy well, no fevers, not in distress, feels better. Objective - Vital Signs/Intake and Output Vital Signs (last 24 hours): Temp Pulse Resp BP Pulse Ox 99 F 76 20 128/72 95 06/10/18 16:00 06/11/18 10:31 06/10/18 16:00 06/11/18 10:31 06/10/18 16:00 - Medications Medications: Current Medications Acetaminophen (Tylenol 325mg Tab) 650 mg PO Q6H PRN; Protocol PRN Reason: Fever >100.4 F Acetaminophen (Tylenol 325mg Tab) 650 mg PO Q6H PRN; Protocol PRN Reason: Headache Arformoterol Tartrate (Brovana) 15 mcg IH [id number] [facility] Last Admin: 06/11/18 08:02 Dose: 15 mcg Aspirin (Ecotrin) 81 mg PO 0800 [facility]; Protocol Last Admin: 06/11/18 08:08 Dose: 81 mg Atorvastatin Calcium (Lipitor) 80 mg PO HS [facility]; Protocol Last Admin: 06/10/18 21:21 Dose: 80 mg Budesonide (Pulmicort Respules) 0.5 mg IH [id number] [facility]; Protocol Last Admin: 06/11/18 08:02 Dose: 0.5 mg Clopidogrel Bisulfate (Plavix) 75 mg PO DAILY [facility] Last Admin: 06/11/18 10:32 Dose: 75 mg Doxycycline Hyclate (Doryx) 100 mg PO Q12 [facility] Last Admin: 06/11/18 10:32 Dose: 100 mg Enoxaparin Sodium (Lovenox) 40 mg SC 0600 [facility]; Protocol Last Admin: 06/11/18 05:52 Dose: 40 mg Cefepime HCl (Maxipime 2gm) 2 gm in 100 mls @ 100 mls/hr IVPB 0600,1800 [facility]; Protocol Stop: 06/13/18 06:01 Last Admin: 06/11/18 05:51 Dose: 100 mls/hr Levalbuterol HCl (Xopenex) 1.25 mg IH [id number] [facility]; Protocol Last Admin: 06/11/18 07:59 Dose: 1.25 mg Lisinopril (Zestril) 20 mg PO DAILY [facility] Last Admin: 06/11/18 10:33 Dose: 20 mg Oxycodone HCl (Oxycodone Immediate Release Tab) 30 mg PO Q6H PRN; Protocol PRN Reason: Pain, moderate (4-7) Oxycodone HCl (Oxycontin Extended Release Tab) 30 mg PO Q12 [facility] Last Admin: 06/11/18 10:38 Dose: 30 mg Pantoprazole Sodium (Protonix Ec Tab) 40 mg PO 0600 [facility]; Protocol Last Admin: 06/11/18 05:51 Dose: 40 mg Prednisone (Prednisone Tab) 30 mg PO DAILY [facility] Last Admin: 06/11/18 10:32 Dose: 30 mg Sotalol HCl (Betapace) 80 mg PO Q12 [facility]; Protocol Last Admin: 06/11/18 10:31 Dose: 80 mg - Labs Labs: 06/11/18 06:30 06/11/18 06:30 - Constitutional Appears: Cachectic, Chronically Ill - Head Exam Head Exam: NORMAL INSPECTION - Respiratory Exam Respiratory Exam: Decreased Breath Sounds - Cardiovascular Exam Cardiovascular Exam: +S1, +S2 - GI/Abdominal Exam GI & Abdominal Exam: Soft. absent: Tenderness Assessment and Plan - Assessment and Plan (Free Text) Plan: Assessment severe sepsis due to left sided HCAP, clinically improved CAD HTN COPD dyslipidemia peripheral arterial disease history of right humerus fracture Plan we can discontinue Doxycycline and Cefepime completed 7 days of therapy patient has completed course of Tamiflu nasal MRSA screen is negative blood cx are negative will continue to monitor clinically
[2018-06-13] MEDS: Levalbuterol 1.25 MG/3 ML Inhal Soln UD IH SCH ×4 (02:05→20:20)
[2018-06-13] MEDS: Enoxaparin 40 mg Syringe SC SCH (05:35)
[2018-06-13] MEDS: Pantoprazole 40 mg EC Tab PO SCH (05:35)
[2018-06-13 07:07] LABS: BASO # 0.02 K/mm3 (0.0-2.0); BASO % 0.1 % (0.0-3.0); EOS # 0.2 (0.0-0.7); EOS % 1.2 % (1.5-5.0); HEMOGLOBIN 13.3 g/dL (14.0-18.0); LYMPH # 3.9 (1.2-3.4); LYMPH % 23.8 % (22.0-35.0); MEAN CELL VOLUME 88.6 fl (80.0-105.0); MEAN CORPUSCULAR HEMOGLOBIN 28.7 pg (25.0-35.0); MEAN CORPUSCULAR HGB CONC 32.4 g/dl (31.0-37.0); MEAN PLATELET VOLUME 11.3 fl (7.0-11.0); MONO # 1.4 (0.1-0.6); MONO % 8.5 % (1.0-6.0); RBC 4.64 10^6/uL (3.5-6.1); RED CELL DISTRIBUTION WIDTH 14.7 % (11.5-14.5); WHITE BLOOD COUNT 16.2 10^3/uL (4.5-11.0)
[2018-06-13 07:34] LABS: ALB/GLOB RATIO 1.2 (1.1-1.8); ALBUMIN 3.2 g/dL (3.0-4.8); ALT/SGPT 69 U/L (7-56); AST/SGOT 58 U/L (17-59); BLOOD UREA NITROGEN 26 mg/dL (7-21); CALCIUM 8.9 mg/dL (8.4-10.5); GFR NON-AFRICAN AMERICAN > 60
--- NOTE | 2018-06-13 08:47 | CP.PCM.PN ---
<Felicia Smith - Last Filed: 06/13/18 16:58> Subjective - Date & Time of Evaluation Date of Evaluation: 06/13/18 Time of Evaluation: 07:45 - Subjective Subjective: Pgy3 Medicine progress note for Dr. Archibald Patient seen and examined at bedside. As per nursing no acute events overnight and patient in good spirits this AM. Reports enjoying working with PT and getting stronger. Denied acute complaints fever, chills, headache, dizziness, chest pain, palpitations, SOB, cough, abd pain, nausea, vomiting, bowel/bladder complaints, swelling in his legs b/l. LLE pain improving. Objective - Vital Signs/Intake and Output Vital Signs (last 24 hours): Temp Pulse Resp BP Pulse Ox 98.4 F 60 20 132/67 94 L 06/12/18 16:00 06/12/18 21:23 06/12/18 16:00 06/12/18 21:23 06/12/18 16:28 Intake and Output: 06/13/18 06/13/18 06:59 18:59 Intake Total 420 Balance 420 - Medications Medications: Current Medications Acetaminophen (Tylenol 325mg Tab) 650 mg PO Q6H PRN; Protocol PRN Reason: Fever >100.4 F Acetaminophen (Tylenol 325mg Tab) 650 mg PO Q6H PRN; Protocol PRN Reason: Headache Arformoterol Tartrate (Brovana) 15 mcg IH [id number] [facility] Last Admin: 06/12/18 20:17 Dose: 15 mcg Aspirin (Ecotrin) 81 mg PO 0800 [facility]; Protocol Last Admin: 06/13/18 08:15 Dose: 81 mg Atorvastatin Calcium (Lipitor) 80 mg PO HS [facility]; Protocol Last Admin: 06/12/18 21:12 Dose: 80 mg Budesonide (Pulmicort Respules) 0.5 mg IH [id number] [facility]; Protocol Last Admin: 06/12/18 20:17 Dose: 0.5 mg Clopidogrel Bisulfate (Plavix) 75 mg PO DAILY [facility] Last Admin: 06/12/18 11:00 Dose: 75 mg Enoxaparin Sodium (Lovenox) 40 mg SC 0600 [facility]; Protocol Last Admin: 06/13/18 05:35 Dose: 40 mg Levalbuterol HCl (Xopenex) 1.25 mg IH [id number] [facility]; Protocol Last Admin: 06/13/18 02:05 Dose: Not Given Lisinopril (Zestril) 20 mg PO DAILY [facility] Last Admin: 06/12/18 11:00 Dose: 20 mg Oxycodone HCl (Oxycodone Immediate Release Tab) 30 mg PO Q6H PRN; Protocol PRN Reason: Pain, moderate (4-7) Oxycodone HCl (Oxycontin Extended Release Tab) 30 mg PO Q12 [facility] Last Admin: 06/12/18 21:14 Dose: 30 mg Pantoprazole Sodium (Protonix Ec Tab) 40 mg PO 0600 [facility]; Protocol Last Admin: 06/13/18 05:35 Dose: 40 mg Prednisone (Prednisone Tab) 20 mg PO DAILY [facility] Last Admin: 06/12/18 17:52 Dose: 20 mg Sotalol HCl (Betapace) 80 mg PO Q12 [facility]; Protocol Last Admin: 06/12/18 21:23 Dose: 80 mg - Labs Labs: 06/13/18 06:20 06/13/18 06:20 - Additional Findings Additional findings: - Constitutional Appears: Non-toxic, No Acute Distress - Head Exam Head Exam: ATRAUMATIC, NORMAL INSPECTION, NORMOCEPHALIC - Eye Exam Eye Exam: EOMI, Normal appearance, PERRL. absent: Conjunctival injection, Scleral icterus - ENT Exam ENT Exam: Mucous Membranes Moist - Neck Exam Neck exam: Positive for: Full Rom, Normal Inspection. Negative for: Lymphadenopathy - Respiratory Exam Respiratory Exam: Clear to Auscultation Bilateral, NORMAL BREATHING PATTERN. absent: Accessory Muscle Use, Rales, Rhonchi, Wheezes, Respiratory Distress - Cardiovascular Exam Cardiovascular Exam: +S1, +S2 - GI/Abdominal Exam GI & Abdominal Exam: Normal Bowel Sounds, Soft. absent: Firm, Guarding, Rigid, Tenderness - Extremities Exam Extremities exam: Positive for: normal capillary refill, normal inspection, pedal pulses present. Negative for: pedal edema - Neurological Exam Neurological exam: Alert, CN II-XII Intact, Oriented x3 - Psychiatric Exam Psychiatric exam: Normal Affect, Normal Mood - Skin Skin Exam: Dry, Intact, Normal Color, Warm Assessment and Plan - Assessment and Plan (Free Text) Assessment: - L sided HCAP- improving - New onset Afib- controlled - Acute on Chronic COPD- resolved - HTN - HLD - PAD - Chronic R humerus fracture - Chronic back pain - Chronic opioid use for chronic pain - Gait training and conditioning - Leukocytosis Plan: Patien's vitals, blood work, and imaging reviewed in chart. Patient off abx and heplock discontinued. Patient completed Tamiflu course. Nasal MRSA negative. Flow cytometry revealed no evidence for abnormal myeloid maturation or increased blast population; no evidence for lymphoproliferative disorder. CXR reviewed. Rapid flu and Urine legionella negative. Patient's HR controlled on Sotalol at this time. Tapering steroids down and will continue breathing treatments as per pulm. Thyroid studies wnl. Continue home lipitor and ASA and Plavix in light of patient's history of CAD with 3 stents. Lipid panel and HgbA1c wnl. Echo reviewed. CT Abd/pelvis reviewed. Patient remained normotensive overnight on home Lisinopril. Arterial studies revealed moderately abnl left BRADY at rest and left SFA occlusive disease. MRA ordered as per IR- recommend follow up. X-ray lumbosacral spine unremarkable. Maintain euglycemia and normothermia. Patient's home pain medications on board. DVT/GI ppx in place. [place] [facility] Patient to continue working and ambulating with physical therapy. Planed discharge on Saturday06/15/18. Discussed with Dr. Cristela Smith PGY3 <Primitivo Archibald S - Last Filed: 06/13/18 18:58> Objective - Vital Signs/Intake and Output Vital Signs (last 24 hours): Temp Pulse Resp BP Pulse Ox 98.1 F 57 L 20 102/53 L 93 L 06/13/18 16:00 06/13/18 16:00 06/13/18 16:00 06/13/18 16:00 06/13/18 16:00 Intake and Output: 06/13/18 06/13/18 06:59 18:59 Intake Total 420 420 Balance 420 420 - Medications Medications: Current Medications Acetaminophen (Tylenol 325mg Tab) 650 mg PO Q6H PRN; Protocol PRN Reason: Fever >100.4 F Acetaminophen (Tylenol 325mg Tab) 650 mg PO Q6H PRN; Protocol PRN Reason: Headache Arformoterol Tartrate (Brovana) 15 mcg IH [id number] [facility] Last Admin: 06/13/18 08:49 Dose: 15 mcg Aspirin (Ecotrin) 81 mg PO 0800 [facility]; Protocol Last Admin: 06/13/18 08:15 Dose: 81 mg Atorvastatin Calcium (Lipitor) 80 mg PO HS [facility]; Protocol Last Admin: 06/12/18 21:12 Dose: 80 mg Budesonide (Pulmicort Respules) 0.5 mg IH [id number] [facility]; Protocol Last Admin: 06/13/18 08:49 Dose: 0.5 mg Clopidogrel Bisulfate (Plavix) 75 mg PO DAILY [facility] Last Admin: 06/13/18 13:19 Dose: 75 mg Enoxaparin Sodium (Lovenox) 40 mg SC 0600 [facility]; Protocol Last Admin: 06/13/18 05:35 Dose: 40 mg Levalbuterol HCl (Xopenex) 1.25 mg IH [id number] [facility]; Protocol Last Admin: 06/13/18 13:43 Dose: 1.25 mg Lisinopril (Zestril) 20 mg PO DAILY [facility] Last Admin: 06/13/18 13:19 Dose: 20 mg Oxycodone HCl (Oxycodone Immediate Release Tab) 30 mg PO Q6H PRN; Protocol PRN Reason: Pain, moderate (4-7) Oxycodone HCl (Oxycontin Extended Release Tab) 30 mg PO Q12 [facility] Last Admin: 06/13/18 10:48 Dose: 30 mg Pantoprazole Sodium (Protonix Ec Tab) 40 mg PO 0600 [facility]; Protocol Last Admin: 06/13/18 05:35 Dose: 40 mg Prednisone (Prednisone Tab) 20 mg PO DAILY [facility] Last Admin: 06/13/18 13:19 Dose: 20 mg Sotalol HCl (Betapace) 80 mg PO Q12 [facility]; Protocol Last Admin: 06/13/18 13:19 Dose: Not Given - Labs Labs: 06/13/18 06:20 06/13/18 06:20 Assessment and Plan - Assessment and Plan (Free Text) Plan: Pt seen and examined by me. I have reviewed the note of the mobile paramedical examiner and I agree with it. I have discussed the assessment and plan with the resident. I have reviewed the medications and the last labs.Pt with pneumonia that has improved. He has finished his IV Abx. He is on tapering steroids for COPD. He is on ASA and Plavix for CAD. He is walking well. He will go home in 2 days. Pt is on Sotalol. PAD is being treated with ASA.
[2018-06-13] MEDS: Budesonide 0.5 mg/2 ml Inhal Susp UD IH SCH ×2 (08:49→20:20)
[2018-06-13] MEDS: Arformoterol 15 mcg/2 ml Inh Sol IH SCH ×2 (08:49→20:20)
--- NOTE | 2018-06-13 09:24 | PN ---
DATE: 06/13/2018 SUBJECTIVE: The patient appears very comfortable this morning. He is not short of breath at rest. PHYSICAL EXAMINATION: VITAL SIGNS: Temperature is 98.4, pulse 60, respirations 18, blood pressure 132/67. Oxygen saturation on room air is 94%. HEENT: Normocephalic, atraumatic. NECK: No JVD. CARDIOVASCULAR: Systolic ejection murmur at the lower left sternal border. No S3 gallop. LUNGS: Minimal crackles - left base. No rhonchi or wheezing this morning. EXTREMITIES: No clubbing, cyanosis or edema. Calves are nontender to palpation. GASTROINTESTINAL: Abdomen is soft, nontender and nondistended. Bowel sounds are positive. SKIN: No acute rash. NEUROLOGIC: Exam limited at the present time. IMPRESSION: 1. Left lower lobe pneumonia. 2. Chronic obstructive pulmonary disease, possibly advanced. 3. Asthma. 4. Coronary artery disease. 5. Mild anemia. PLAN: The patient appears very comfortable this morning. He is not short of breath at rest. He does state to feeling much, much better overall. On physical exam, his bronchospasm continues to resolve. In addition, the alveolar-arterial gradient also continues to resolve. I will continue the current nebulizer treatments and low-dose oral steroids (decreased yesterday) for now. The patient is now off antibiotic therapy - as per Infectious Disease. Input by Dr. Benito is noted. Clinical status of the patient is certainly improved - compared to the initial presentation. However, given the above, the future status/prognosis for this patient does remain guarded. I will discuss the above with Dr. Archibald. Jatin Wilson MD MTDD
[2018-06-13] MEDS: oxyCODONE 10 mg ER Tab (oxyCONTIN) PO SCH ×2 (10:48→22:01)
--- NOTE | 2018-06-13 15:39 | CP.PCM.PN ---
Subjective - Date & Time of Evaluation Date of Evaluation: 06/13/18 Time of Evaluation: 14:00 - Subjective Subjective: Comfortably resting in bed, no fevers, not in distress. Objective - Vital Signs/Intake and Output Vital Signs (last 24 hours): Temp Pulse Resp BP Pulse Ox 98.3 F 54 L 18 104/50 L 95 06/11/18 16:00 06/11/18 21:20 06/11/18 16:00 06/12/18 11:00 06/11/18 16:00 Intake and Output: 06/12/18 06/12/18 06:59 18:59 Intake Total 280 Balance 280 - Medications Medications: Current Medications Acetaminophen (Tylenol 325mg Tab) 650 mg PO Q6H PRN; Protocol PRN Reason: Fever >100.4 F Acetaminophen (Tylenol 325mg Tab) 650 mg PO Q6H PRN; Protocol PRN Reason: Headache Arformoterol Tartrate (Brovana) 15 mcg IH [id number] [facility] Last Admin: 06/12/18 07:28 Dose: 15 mcg Aspirin (Ecotrin) 81 mg PO 0800 [facility]; Protocol Last Admin: 06/12/18 08:38 Dose: 81 mg Atorvastatin Calcium (Lipitor) 80 mg PO HS [facility]; Protocol Last Admin: 06/11/18 21:19 Dose: 80 mg Budesonide (Pulmicort Respules) 0.5 mg IH [id number] [facility]; Protocol Last Admin: 06/12/18 07:28 Dose: 0.5 mg Clopidogrel Bisulfate (Plavix) 75 mg PO DAILY [facility] Last Admin: 06/12/18 11:00 Dose: 75 mg Doxycycline Hyclate (Doryx) 100 mg PO Q12 [facility] Last Admin: 06/12/18 10:57 Dose: 100 mg Enoxaparin Sodium (Lovenox) 40 mg SC 0600 [facility]; Protocol Last Admin: 06/12/18 05:05 Dose: 40 mg Cefepime HCl (Maxipime 2gm) 2 gm in 100 mls @ 100 mls/hr IVPB 0600,1800 [facility]; Protocol Stop: 06/13/18 06:01 Last Admin: 06/12/18 05:05 Dose: 100 mls/hr Levalbuterol HCl (Xopenex) 1.25 mg IH [id number] [facility]; Protocol Last Admin: 06/12/18 07:28 Dose: 1.25 mg Lisinopril (Zestril) 20 mg PO DAILY [facility] Last Admin: 06/12/18 11:00 Dose: 20 mg Oxycodone HCl (Oxycodone Immediate Release Tab) 30 mg PO Q6H PRN; Protocol PRN Reason: Pain, moderate (4-7) Oxycodone HCl (Oxycontin Extended Release Tab) 30 mg PO Q12 [facility] Last Admin: 06/12/18 10:59 Dose: 30 mg Pantoprazole Sodium (Protonix Ec Tab) 40 mg PO 0600 [facility]; Protocol Last Admin: 06/12/18 05:05 Dose: 40 mg Prednisone (Prednisone Tab) 20 mg PO DAILY [facility] Sotalol HCl (Betapace) 80 mg PO Q12 [facility]; Protocol Last Admin: 06/12/18 10:57 Dose: Not Given - Labs Labs: 06/11/18 06:30 06/11/18 06:30 - Constitutional Appears: Cachectic, Chronically Ill - Head Exam Head Exam: NORMAL INSPECTION - Respiratory Exam Respiratory Exam: Decreased Breath Sounds - Cardiovascular Exam Cardiovascular Exam: +S1, +S2 - GI/Abdominal Exam GI & Abdominal Exam: Soft. absent: Tenderness Assessment and Plan - Assessment and Plan (Free Text) Plan: Assessment severe sepsis due to left sided HCAP, clinically improved CAD HTN COPD dyslipidemia peripheral arterial disease history of right humerus fracture Plan completed 7 days of Doxycycline and Cefepime - continue to monitor off an tibiotics since he is at risk for nosocomial infections patient has completed course of Tamiflu nasal MRSA screen is negative blood cx are negative
[2018-06-14] MEDS: Levalbuterol 1.25 MG/3 ML Inhal Soln UD IH SCH ×4 (01:40→19:09)
[2018-06-14] MEDS: Enoxaparin 40 mg Syringe SC SCH (05:52)
[2018-06-14] MEDS: Pantoprazole 40 mg EC Tab PO SCH (05:53)
[2018-06-14] MEDS: oxyCODONE 10 mg ER Tab (oxyCONTIN) PO SCH ×2 (09:18→21:52)
--- NOTE | 2018-06-14 10:16 | PN ---
DATE: 06/14/2018 SUBJECTIVE: The patient has no complaints of any chest pain or shortness of breath. No headaches or dizziness. He is able to ambulate. His pain is controlled. PHYSICAL EXAMINATION: VITAL SIGNS: Temperature is 98.1, pulse of 55, blood pressure 109/60, and respirations 20. GENERAL: The patient is lying in bed, flat, comfortable. HEENT: No oral lesion. Anicteric sclerae. Moist mucosa. NECK: No JVD, adenopathy, or thyromegaly. CARDIOVASCULAR: S1 and S2, regular. No murmurs, rubs, or gallops. LUNGS: Clear to auscultation bilaterally. No wheeze, rales, or rhonchi. ABDOMEN: Bowel sounds are positive, soft, nontender and nondistended. EXTREMITIES: no cyanosis, clubbing or edema. LABORATORY DATA: White count is 16.2, hemoglobin 13.3 with a creatinine 0.9. ASSESSMENT: 1. Hospital-acquired pneumonia. 2. Atrial fibrillation, controlled. 3. Chronic obstructive pulmonary disease, stable. 4. Hypertension. 5. Dyslipidemia. 6. Peripheral arterial disease. 7. Chronic right humerus fracture. 8. Chronic back pain, on opiates chronically for pain. 9. Leukocytosis. PLAN: The patient is currently comfortable. He has finished his IV antibiotics. He is going to continue sotalol for his atrial fibrillation. He is on aspirin daily for his coronary artery disease and peripheral arterial disease. He is on Lipitor for dyslipidemia. He is on Lovenox for DVT prophylaxis. At this point, I will discontinue his Lovenox because he is ambulating fairly well. I will renew his pain medications because of his chronic pain. He is on Plavix. He is receiving prednisone with a taper for his COPD. He is on Pulmicort for his breathing. He is going to follow up with Dr. Wilson for his COPD. He is on lisinopril for his hypertension. He is on a heart healthy diet. He is going to be discharged home tomorrow. He is no longer in atrial fibrillation and does not require anticoagulation. He has a sinus rhythm. He is going to be discharged home tomorrow to follow up with me in the office as an outpatient. Primitivo Archibald MD [facility] # [id number]
[2018-06-14] MEDS: Arformoterol 15 mcg/2 ml Inh Sol IH SCH ×2 (10:19→19:09)
[2018-06-14] MEDS: Budesonide 0.5 mg/2 ml Inhal Susp UD IH SCH ×2 (10:19→19:09)
[2018-06-14 11:00] VITALS: TEMP 98.3
[2018-06-14 16:23] VITALS: RESP 18; O2SAT 94
--- NOTE | 2018-06-14 17:19 | PN ---
DATE: 06/14/2018 PULMONARY PROGRESS NOTE SUBJECTIVE: The patient was seen and examined in transitional care unit. He states he feels much better. He is currently receiving nebulizer treatment. PHYSICAL EXAMINATION: VITAL SIGNS: His temperature is 98, pulse 68, respirations 20, blood pressure is 130/67, and oxygen saturation on room air is 94%. HEAD: Normocephalic and atraumatic. NECK: Supple. There is no jugular vein distention. CARDIOVASCULAR: S1, S2. No S3. Regular. PULMONARY: Few rhonchi bilaterally. No wheezing. EXTREMITIES: No clubbing, cyanosis or edema. GASTROINTESTINAL: Soft, nontender. No organomegaly. SKIN: No acute skin rash. NEUROLOGIC: No focal deficits. ASSESSMENT. 1. Left lower lobe pneumonia, improving clinically. 2. Chronic obstructive pulmonary disease. 3. Bronchial asthma. PLAN: The patient appears comfortable this morning. He is not short of breath at rest. His breath sounds have improved. There is minimal rhonchi on exam. We will continue with current administration of nebulizer treatments and low-dose steroids. He is off antibiotics and discharge planning is in progress. Zen Rossi MD
--- NOTE | 2018-06-14 17:43 | CP.PCM.PN ---
Subjective - Date & Time of Evaluation Date of Evaluation: 06/14/18 Time of Evaluation: 11:10 - Subjective Subjective: Doing his physical therapy well, no fevers, breathing ok. Objective - Vital Signs/Intake and Output Vital Signs (last 24 hours): Temp Pulse Resp BP Pulse Ox 98.4 F 49 L 20 115/61 96 06/12/18 16:00 06/13/18 13:19 06/12/18 16:00 06/13/18 13:19 06/13/18 13:12 Intake and Output: 06/13/18 06/13/18 06:59 18:59 Intake Total 420 420 Balance 420 420 - Medications Medications: Current Medications Acetaminophen (Tylenol 325mg Tab) 650 mg PO Q6H PRN; Protocol PRN Reason: Fever >100.4 F Acetaminophen (Tylenol 325mg Tab) 650 mg PO Q6H PRN; Protocol PRN Reason: Headache Arformoterol Tartrate (Brovana) 15 mcg IH [id number] [facility] Last Admin: 06/13/18 08:49 Dose: 15 mcg Aspirin (Ecotrin) 81 mg PO 0800 [facility]; Protocol Last Admin: 06/13/18 08:15 Dose: 81 mg Atorvastatin Calcium (Lipitor) 80 mg PO HS [facility]; Protocol Last Admin: 06/12/18 21:12 Dose: 80 mg Budesonide (Pulmicort Respules) 0.5 mg IH [id number] [facility]; Protocol Last Admin: 06/13/18 08:49 Dose: 0.5 mg Clopidogrel Bisulfate (Plavix) 75 mg PO DAILY [facility] Last Admin: 06/13/18 13:19 Dose: 75 mg Enoxaparin Sodium (Lovenox) 40 mg SC 0600 [facility]; Protocol Last Admin: 06/13/18 05:35 Dose: 40 mg Levalbuterol HCl (Xopenex) 1.25 mg IH [id number] [facility]; Protocol Last Admin: 06/13/18 13:43 Dose: 1.25 mg Lisinopril (Zestril) 20 mg PO DAILY [facility] Last Admin: 06/13/18 13:19 Dose: 20 mg Oxycodone HCl (Oxycodone Immediate Release Tab) 30 mg PO Q6H PRN; Protocol PRN Reason: Pain, moderate (4-7) Oxycodone HCl (Oxycontin Extended Release Tab) 30 mg PO Q12 [facility] Last Admin: 06/13/18 10:48 Dose: 30 mg Pantoprazole Sodium (Protonix Ec Tab) 40 mg PO 0600 [facility]; Protocol Last Admin: 06/13/18 05:35 Dose: 40 mg Prednisone (Prednisone Tab) 20 mg PO DAILY [facility] Last Admin: 06/13/18 13:19 Dose: 20 mg Sotalol HCl (Betapace) 80 mg PO Q12 [facility]; Protocol Last Admin: 06/13/18 13:19 Dose: Not Given - Labs Labs: 06/13/18 06:20 06/13/18 06:20 - Constitutional Appears: No Acute Distress, Cachectic, Chronically Ill - Head Exam Head Exam: NORMAL INSPECTION - Respiratory Exam Respiratory Exam: Decreased Breath Sounds - Cardiovascular Exam Cardiovascular Exam: +S1, +S2 - GI/Abdominal Exam GI & Abdominal Exam: Soft. absent: Tenderness Assessment and Plan - Assessment and Plan (Free Text) Plan: Assessment severe sepsis due to left sided HCAP, clinically improved CAD HTN COPD dyslipidemia peripheral arterial disease history of right humerus fracture Plan completed 7 days of Doxycycline and Cefepime - continue to monitor off antibiotics since he is at risk for hospital-acquired infections patient has completed course of Tamiflu nasal MRSA screen is negative blood cx are negative
[2018-06-15] MEDS: Levalbuterol 1.25 MG/3 ML Inhal Soln UD IH SCH ×2 (02:48→07:14)
[2018-06-15] MEDS: Pantoprazole 40 mg EC Tab PO SCH (05:07)
[2018-06-15] MEDS: Arformoterol 15 mcg/2 ml Inh Sol IH SCH (07:14)
[2018-06-15] MEDS: Budesonide 0.5 mg/2 ml Inhal Susp UD IH SCH (07:14)
[2018-06-15] MEDS: oxyCODONE 10 mg ER Tab (oxyCONTIN) PO SCH (10:17)
[2018-06-15 10:27] VITALS: BP 106/56; PULSE 58
--- NOTE | 2018-06-15 21:14 | PN ---
DATE: 06/15/2018 SUBJECTIVE: The patient is in bed, in no acute distress, and nontoxic. PHYSICAL EXAMINATION: VITAL SIGNS: Temperature is 98, blood pressure is 106/50, and respiratory rate of 18. HEENT: Unremarkable. NECK: Supple. LABORATORY DATA: Reveals a white count of 16,000, hemoglobin of 13. Chemistries reveal a BUN of 26, creatinine of 0.9. Procalcitonin is 0.54. Microbiology is noted. ASSESSMENT AND PLAN: This is a 77-year-old male, was seen earlier today in room 302 with severe sepsis, left-sided healthcare-associated pneumonia is improved. Completed 7 days of doxycycline and cefepime. The patient states he will follow with PMD as an outpatient. Felipe Dueñas MD
--- NOTE | 2018-06-16 02:57 | DS ---
HISTORY OF PRESENT ILLNESS: The patient is a 77-year-old patient of Dr. Archibald, waiting to be discharged, very anxious. Offered no complaint. No chest pain. No shortness of breath. The patient was initially admitted because of cough, congestion, and shortness of breath. The patient has history of COPD. PAST MEDICAL HISTORY: He also has significant past medical history of: 1. Coronary artery disease, status post angioplasty. 2. COPD. 3. Hypertension. 4. Hyperlipidemia. 5. History of chronic back pain on p.o. narcotics. Upon this present admission, he was admitted because of rapid atrial fibrillation with sepsis, so he was given IV antibiotic. He was stabilized, transferred to TCU on 06/08/2018. He was stabilized, his stay in TCU was unremarkable. He participated in therapy, doing well, anxious to go home today. PHYSICAL EXAMINATION: VITAL SIGNS: He is afebrile. Pulse 58, respirations 18, blood pressure 106/56. LUNGS: Bilateral fair airflow with decreased breath sounds. HEART: S1 and S2 audible. ABDOMEN: Soft, nontender. No rebound. No guarding. NEUROLOGIC: The patient is awake, alert, oriented, and communicative. ASSESSMENT: 1. Status post sepsis secondary to community-acquired pneumonia. 2. Chronic atrial fibrillation. 3. Chronic obstructive pulmonary disease. 4. Leukocytosis. 5. Chronic low back pain with opioid dependence. 6. Peripheral vascular disease. 7. Hypertension. 8. Hyperlipidemia. PLAN: The patient is scheduled to have evaluation by Dr. Chapin Rojas done for his peripheral vascular disease as an outpatient. He is being discharged. I will give him one week of narcotics and he will follow with Dr. Archibald. Jak Nails MD
== END 2018-06-15 15:28 | disposition home or self-care (01) | DRG 871 ==
LOC: TRCU 14:38
PROVIDERS: ADMIT Internal Medicine Nephrology; ATTEND Internal Medicine Nephrology
PROC: F07Z9FZ Gait Training/Functional Ambulation Treatment using Assistive, Adaptive, Supportive or Protective Equipment (ICD-10-PCS; principal; 2018-06-08)
PROC: F07M6ZZ Therapeutic Exercise Treatment of Musculoskeletal System - Whole Body (ICD-10-PCS; 2018-06-08)
PROC: F08Z1ZZ Dressing Techniques Treatment (ICD-10-PCS; 2018-06-08)
PROC: F08Z2ZZ Grooming/Personal Hygiene Treatment (ICD-10-PCS; 2018-06-08)
PROC: F08Z0ZZ Bathing/Showering Techniques Treatment (ICD-10-PCS; 2018-06-08)
DX: A41.9 Sepsis, unspecified organism (principal); J18.1 Lobar pneumonia, unspecified organism; F11.20 Opioid dependence, uncomplicated; J44.0 Chronic obstructive pulmonary disease with (acute) lower respiratory infection; J44.1 Chronic obstructive pulmonary disease with (acute) exacerbation; J84.9 Interstitial pulmonary disease, unspecified; R65.20 Severe sepsis without septic shock; I48.2 Chronic atrial fibrillation; I11.0 Hypertensive heart disease with heart failure; I50.9 Heart failure, unspecified; D64.9 Anemia, unspecified; E78.5 Hyperlipidemia, unspecified; G89.29 Other chronic pain; I25.10 Atherosclerotic heart disease of native coronary artery without angina pectoris; I73.9 Peripheral vascular disease, unspecified; K21.9 Gastro-esophageal reflux disease without esophagitis; Y95 Nosocomial condition; Z87.01 Personal history of pneumonia (recurrent); Z87.891 Personal history of nicotine dependence; Z95.5 Presence of coronary angioplasty implant and graft; Z98.41 Cataract extraction status, right eye; J45.909 Unspecified asthma, uncomplicated; Z87.81 Personal history of (healed) traumatic fracture

== ENCOUNTER 2018-06-13 09:57 | Outpatient (CLI) | payer MEDICARE, OTHER | END 2018-06-13 09:58 | disposition home or self-care (01) | LOC: RAD 09:57 ==

== ENCOUNTER 2018-08-07 12:26 | Outpatient (CLI) | payer MEDICARE, OTHER | END 2018-08-07 12:27 | disposition home or self-care (01) | LOC: RAD 12:26 ==

== ENCOUNTER 2018-09-26 18:36 | Observation (INO) | payer MEDICARE ==
[2018-09-26 18:37] VITALS: PULSE 133
[2018-09-26 18:47] VITALS: BMI 20.1
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
[2018-09-26 19:30] LABS: ALB/GLOB RATIO 1.4 (1.1-1.8); ALBUMIN 4.1 g/dL (3.0-4.8); ALT/SGPT 17 U/L (7-56); AST/SGOT 25 U/L (17-59); BLOOD UREA NITROGEN 17 mg/dL (7-21); CALCIUM 9.4 mg/dL (8.4-10.5); GFR NON-AFRICAN AMERICAN > 60
[2018-09-26 19:45] LABS: B-TYPE NATRIURETIC PEPTIDE 459 pg/mL (0-450); TROPONIN I < 0.01 ng/mL
[2018-09-26] MEDS: Albuterol-Ipratrop 3 mg / 0.5 (3 ml) UD IH SCH ×3 (19:47→21:38)
[2018-09-26 20:07] LABS: INR 1.05; PARTIAL THROMBOPLASTIN TIME 30.6 Seconds (26.9-38.3); PROTHROMBIN TIME 11.6 SECONDS (9.4-12.5)
[2018-09-26 20:10] LABS: BASO # 0.02 K/mm3 (0.0-2.0); BASO % 0.2 % (0.0-3.0); EOS # 0.1 (0.0-0.7); EOS % 0.6 % (1.5-5.0); HEMOGLOBIN 12.4 g/dL (14.0-18.0); LYMPH # 1.3 (1.2-3.4); LYMPH % 11.9 % (22.0-35.0); MEAN CELL VOLUME 87.8 fl (80.0-105.0); MEAN CORPUSCULAR HEMOGLOBIN 27.9 pg (25.0-35.0); MEAN CORPUSCULAR HGB CONC 31.8 g/dl (31.0-37.0); MEAN PLATELET VOLUME 10.9 fl (7.0-11.0); MONO # 0.7 (0.1-0.6); MONO % 6.1 % (1.0-6.0); RBC 4.44 10^6/uL (3.5-6.1); RED CELL DISTRIBUTION WIDTH 14.2 % (11.5-14.5); WHITE BLOOD COUNT 11.2 10^3/uL (4.5-11.0)
[2018-09-26] MEDS ORDERED: oxyCODONE 30 mg Immediate Release Tab PO PRN (21:38)
[2018-09-26] MEDS: oxyCODONE 10 mg ER Tab (oxyCONTIN) PO SCH (22:03)
[2018-09-26 23:07] VITALS: RESP 20
[2018-09-27 06:31] VITALS: BP 153/78; TEMP 98; O2SAT 96
[2018-09-27] MEDS ORDERED: Pantoprazole 40 mg EC Tab PO SCH (07:30)
[2018-09-27] MEDS ORDERED: Arformoterol 15 mcg/2 ml Inh Sol IH SCH (08:00)
[2018-09-27] MEDS ORDERED: Budesonide 0.5 mg/2 ml Inhal Susp UD IH SCH (08:00)
--- NOTE | 2018-09-27 08:33 | RAD ---
Date of service: 09/26/2018 HISTORY: cough COMPARISON: 06/07/2018 TECHNIQUE: 1 view obtained. FINDINGS: LUNGS: No active pulmonary disease. PLEURA: No significant pleural effusion identified, no pneumothorax apparent. CARDIOVASCULAR: No aortic atherosclerotic calcification present. Normal cardiac size. No pulmonary vascular congestion. OSSEOUS STRUCTURES: No significant abnormalities. VISUALIZED UPPER ABDOMEN: Normal. OTHER FINDINGS: None. IMPRESSION: No active disease.
[2018-09-27] MEDS: oxyCODONE 10 mg ER Tab (oxyCONTIN) PO SCH (09:33)
[2018-09-27] MEDS ORDERED: Non Formulary Medication (Budesonide/Formoterol Fumarate [Symbicort 160-4.5 Mcg Inhaler] 1 IH SCH (10:00)
--- NOTE | 2018-09-27 10:16 | CON ---
DATE OF CONSULTATION: 09/27/2018 CARDIOLOGY CONSULTATION HISTORY: The patient is a 77-year-old male, who presents with dyspnea and atypical chest pain. The chest pain is pleuritic in nature. The patient's past medical history includes severe COPD, and he has only recently stopped smoking. In addition, he suffers from multivessel CAD, in which he underwent a catheterization less than a year ago where he was found to have patent stents in all three of his coronary arteries. He suffers from hypercholesterolemia and hypertension as well as documented peripheral vascular disease. The patient was lost to follow up again with the interventional radiologist for his claudication. He does suffer from claudication as well as pain from his hernia. PAST MEDICAL HISTORY: Includes hypertension and hypercholesterolemia. SOCIAL HISTORY: The patient states he just stopped smoking, but I would doubt that he has completely stopped smoking. REVIEW OF SYSTEMS: Fourteen-point review of systems is reviewed in detail. No angina. No edema. No constant shortness of breath with atypical chest pain. PHYSICAL EXAMINATION: VITAL SIGNS: Blood pressure is 153/78, the heart rate is in the 60s. NECK: Negative JVD. LUNGS: Without rales. CARDIAC: Heart rate S1, S2. EXTREMITIES: Without edema. Pulses are decreased on the left side. LABORATORY DATA: EKG shows no acute changes. Hemoglobin is 12.4. BUN and creatinine are unremarkable. Troponins are negative x2. IMPRESSION: 1. Chest pain. 2. No evidence for acute coronary syndrome. 3. Catheterization within 12 months reveals patent stents in all three coronary arteries. 4. Claudication. 5. Chronic obstructive pulmonary disease. 6. Hypertension. 7. Peripheral vascular disease. 8. Hernia. 9. History of noncompliance. PLAN: Given these findings, his medication has been adequately ordered. There is no evidence for cardiac causes of his chest pain. No further cardiac workup is necessary at this time. Chapin Wall MD
[2018-09-27 11:38] VITALS: PULSE 67
--- NOTE | 2018-09-27 14:36 | HP ---
DATE OF EXAM: 09/27/2018 CHIEF COMPLAINT AND HISTORY OF PRESENT ILLNESS: This is a 77-year-old male, who is coming into the hospital with complaints of chest pain. The patient has a past medical history of coronary artery disease with stents. He has peripheral arterial disease, COPD, hypertension, and dyslipidemia. The patient was seeing Dr. Wall, who is his chief fundraising officer. He had a cardiac cath done in 10/2017. The patient has no complaints of any chest pain at this point. He does have a cough that is mostly dry. He has no fevers or chills. No nausea. No vomiting. No abdominal pain. He does have chronic back pain. He also has claudication because of peripheral arterial disease. The patient has a hernia in the left inguinal area that he has not followed up with his surgeon. He was referred to . The patient states he did see Dr. Chapin Rojas for his peripheral arterial disease, and no further intervention was planned. The patient has no weakness in the arms or in the legs. All other review of symptoms are within normal limits except what is mentioned. ALLERGIES: NO KNOWN DRUG ALLERGIES. HOME MEDICATIONS: Xopenex, aspirin, sotalol, Lipitor, oxycodone, OxyContin, Plavix, Protonix, Pulmicort, and Symbicort. PAST MEDICAL HISTORY: As above. Also chronic right humerus fracture, lung collapse, and head injury. PAST SURGICAL HISTORY: Left cataract surgery. FAMILY HISTORY: Noncontributory. SOCIAL HISTORY: He does smoke, he is advised to quit. No alcoholism or drug use. PHYSICAL EXAMINATION: VITAL SIGNS: Temperature is 98, pulse is 83, blood pressure is 153/78, respiration is 20, and O2 saturation 96%. Height is 5 feet 6 inches, weight is 125 pounds, and BMI is 20.2. GENERAL: The patient is lying in bed, comfortable, and in no acute distress. HEENT: Atraumatic and normocephalic. Anicteric sclerae. Moist mucosa. [place] conjunctivae. No oral lesions. NECK: No JVD, anterior and posterior adenopathy, thyromegaly, or bruits. CARDIOVASCULAR: S1 and S2 regular. No murmurs, rubs or gallops. LUNGS: Clear to auscultation bilaterally. No wheezes, rales, or rhonchi. ABDOMEN: Bowel sounds are positive. Soft, nontender and nondistended. No hepatosplenomegaly. No rebound and no guarding EXTREMITIES: No cyanosis, clubbing, or edema. In the right arm and the right shoulder, there is a decreased range of motion because of chronic fracture. The patient's feet have good color. No mottling or cyanosis. 1+ pulses. NEUROLOGIC: No facial asymmetry. Tongue is midline. No uvula deviation. Power is 5/5 upper extremities and lower extremities. Sensation intact in upper extremities and lower extremities. PSYCHIATRIC: She is awake, alert and oriented x3. No anxiety or depression. She has normal affect. GENITOURINARY: No CVA tenderness. VASCULAR: 2+ pulses in the carotid pulses and pedal pulses. SKIN: No erythema or nodules SPINE: Shows normal curvature. LABORATORY DATA: White count of 11.2, hemoglobin of 12.4, and platelet count is 253. Chemistry shows a sodium 140, potassium is 4.1, creatinine is 1.0, and troponin is 0.01 x2. Chest x-ray shows no active disease. His EKG shows sinus rhythm at 68. No ST-T changes. ASSESSMENT: 1. Chest pain, noncardiac. 2. Chronic back pain. 3. Peripheral arterial disease. 4. Coronary artery disease. 5. Chronic obstructive pulmonary disease, stable. 6. Hypertension. 7. Dyslipidemia. 8. Chronic right humerus fracture. 9. Chronic back pain, on opioids. PLAN: The patient is currently comfortable. He was seen by Dr. Chapin Wall. I did speak to him. The patient's chief fundraising officer states he does not require any further intervention. He has been cleared for discharge. The patient was placed on aspirin and Plavix for his coronary artery disease and peripheral arterial disease. He is on Lipitor for his dyslipidemia, this will be continued. He is on Brovana for his COPD. The patient is on Protonix daily. He is also on Pulmicort for his COPD. The patient is on a regular diet. He has been seeing Dr. Stuart for his pain management. The patient was advised to follow up with for his inguinal hernia. He was also advised to follow up with Pulmonary for his COPD. He has not been adherent to his followups. He states that he does take his medications. The patient to be discharged home. He was advised to follow up as an outpatient in one to two weeks with me as well as make followup appointments with his specialist. The patient to return to the hospital if symptoms reoccur or worsen. Priimtivo Archibald MD
--- NOTE | 2018-09-27 15:51 | CARD ---
APPROVED REPORT Date of service: 09/26/2018 EKG Measurement Heart [id number] <Conclusion> Normal sinus rhythm Cannot rule out small or absent R waves V1-V3, may be due to lead placement or possible septal infarct age undetermined. Abnormal ECG
== END 2018-09-27 12:54 | disposition home or self-care (01) ==
LOC: ED 18:36 → ERH 19:49 → 2RNO 21:50
PROVIDERS: ADMIT Internal Medicine Nephrology; ATTEND Internal Medicine Nephrology
DX: R07.89 Other chest pain (principal); I25.10 Atherosclerotic heart disease of native coronary artery without angina pectoris; J44.9 Chronic obstructive pulmonary disease, unspecified; E78.00 Pure hypercholesterolemia, unspecified; E78.5 Hyperlipidemia, unspecified; F17.200 Nicotine dependence, unspecified, uncomplicated; G89.29 Other chronic pain; I10 Essential (primary) hypertension; I48.91 Unspecified atrial fibrillation; I73.9 Peripheral vascular disease, unspecified; K21.9 Gastro-esophageal reflux disease without esophagitis; M84.421A Pathological fracture, right humerus, initial encounter for fracture; Z79.02 Long term (current) use of antithrombotics/antiplatelets; Z91.19 Patient's noncompliance with other medical treatment and regimen; Z95.5 Presence of coronary angioplasty implant and graft; Z98.42 Cataract extraction status, left eye
CPT/HCPCS: 36415; 71045; 80053; 82550; 83615; 83880; 84484; 85025; 85610; 85730; 93005; 94640; 94760; 99285; G0378